=== PATIENT | male | born 1960 | race Two or more races ===

== ENCOUNTER 2017-03-02 18:52 | Inpatient (IN) | payer BC, OTHER ==
[~2017-03-02] VITALS: Ht 167.6 cm; Wt 132.5 kg
--- NOTE | ~2017-03-02 | OR ---
PATIENT'S NAME: EARNESTINE YOUNG [facility] AGE: 56 Y [address] ROOM: [place] [address] LOCATION: GICU ADMIT DATE: 03/02/2017 OR/Procedure Report DISCHARGE DATE: FAMILY PHYSICIAN: PHYSICIAN, NO ATTENDING PHYSICIAN: Chela Martell SURGEON: Sisi Cristobal MD MEDICARE SALES REPRESENTATIVE: DATE OF PROCEDURE: 03/05/2017 PROCEDURE: Right central venous catheter. INDICATIONS: The patient is undergoing posterior fossa mass excision. Need for IV access of vasopressors. DESCRIPTION OF PROCEDURE: After induction of general anesthesia, the patient was lying supine on the cart in slight Trendelenburg position. The neck was prepped with chlorhexidine 2% right neck and chest. Maximal sterile barriers were worn all times. Ultrasound was used to visualize the internal jugular vein. With a single stick, dark nonpulsatile blood was found on return. The ultrasound was then used to visualize the wire and internal jugular vein. Skin nicked, dilated, and a four lumen 8.5-Cayman Islander 16 cm catheter was placed without complication. The wire was removed. Ports withdrew blood, flushed easily, was secured in place. Sterile dressing applied on top. COMPLICATIONS: None. BLOOD LOSS: None. Chest x-ray was ordered in recovery. SISI CRISTOBAL MD JJP/modl /[id number] d: 03/05/17 2234 t: 03/11/17 1242, OPERATIVE SUMMARY
--- NOTE | ~2017-03-02 | CON ---
PATIENT'S NAME: CORWIN ROSENBERG [facility] AGE: 56 Y [address] ROOM: [place] [address] LOCATION: [facility] ADMIT DATE: 03/02/2017 Consultation DISCHARGE DATE: FAMILY PHYSICIAN: PHYSICIAN, NO ATTENDING PHYSICIAN: Chela Martell DATE OF CONSULTATION: 03/13/2017 REFERRING PHYSICIAN: TEENA RIVERA MD CARDIOLOGY CONSULT REASON FOR CARDIOLOGY CONSULTATION: Atrial fibrillation with rapid ventricular response. 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 History is obtained from chart review. The patient is Latvian-speaking only, and he is interviewed with [employer] translation equipment as well as his son is present, who helps with translation but is unsure of the patient's exact past medical history. At the time of this consult, the patient is currently status post a ventricular biopsy as well as an ICP ventricle, which was discontinued overnight. He has a previous history of chronic atrial fibrillation, for which he takes long- term anticoagulation with Xarelto. Once again, this consult is requested due to the patient being in a rapid ventricular response with atrial fibrillation. The patient is very lethargic during questioning, but from chart review, it appears he spent some time in [place] and did ingest some pork, which is the current train of thought for his possible cysticercosis infection. The patient is very lethargic and does wake up for a few questions but quickly falls back asleep. When awake, he does deny angina. He also states that he "recently saw his heart doctor." From discussion with son while he is on the phone with his mother, it appears the patient sees a [facility] manager perioperative who has an Outreach [facility] in [place]. PAST MEDICAL HISTORY: From chart review: 1. Hypertension. 2. Coronary artery disease with a history of coronary artery bypass grafting. 3. Chronic atrial fibrillation with long-term anticoagulation with Xarelto. 4. History of gastric bypass surgery in [place]. 5. Diabetes mellitus. 6. Right shoulder surgery. FAMILY HISTORY: PATIENT'S NAME: CORWIN ROSENBERG [facility] AGE: 56 Y [address] ROOM: [place] [address] LOCATION: [facility] ADMIT DATE: 03/02/2017 Consultation DISCHARGE DATE: FAMILY PHYSICIAN: PHYSICIAN, NO ATTENDING PHYSICIAN: Chela Martell No known family history of cardiac disease. SOCIAL HISTORY: The patient is originally from [place] but has lived in [place], [place] for the last 13 years. He recently went to [place] to visit for 2 months, and once again did ingest some pork, which was not fully cooked. The patient is a daily cigarette smoker. There is also noted history of alcohol use on 1 day per week, and on those days, he will have up to 7 drinks at a time. No noted history of illicit drug use. CURRENT MEDICATIONS: 1. Rocephin 2 g IV twice daily. 2. Biltricide 2400 mg p.o. 3 times daily with meals. 3. Cardizem CD 240 mg p.o. daily. 4. Chlorthalidone 12.5 mg p.o. daily. 5. Colace 100 mg p.o. twice daily. 6. Deltasone 25 mg p.o. 4 times daily. 7. Fish oil 1000 mg p.o. daily. 8. Keppra 500 mg p.o. twice daily. 9. Levothyroxine 150 mcg p.o. daily. 10. Lipitor 20 mg p.o. daily in the evening. 11. Norvasc 10 mg p.o. daily. 12. Os-Rashel 500 mg p.o. daily. 13. Multivitamin 1 tablet p.o. daily. 14. Toprol-XL 200 mg p.o. daily. 15. Vitamin C 500 mg p.o. daily. 16. Vitamin D 1000 units p.o. daily. 17. Levemir 14 units subcu daily in the evening and 12 units subcu daily in the morning. 18. NovoLog subcu on a moderate sliding scale per a.c. and at bedtime Accu- Cheks. MEDICATION ALLERGIES: No known medication allergies. REVIEW OF SYSTEMS: Unable to be fully addressed at this time due to the patient's neurologic status. PHYSICAL EXAMINATION: VITAL SIGNS: Temperature 97.3, pulse 146, respirations 20, blood pressure 112/68, and O2 saturation 97% on room air. The patient weighs 137.3 kg. SKIN: Normal for race and warm and dry. EYES: Sclerae clear. No xanthelasmas. ENT: Oral mucosa is pink and moist. PATIENT'S NAME: EARNESTINE YOUNG [facility] AGE: 56 Y [address] ROOM: [id number] [place], [place] [address] LOCATION: [facility] ADMIT DATE: 03/02/2017 Consultation DISCHARGE DATE: FAMILY PHYSICIAN: PHYSICIAN, NO ATTENDING PHYSICIAN: Chela Martell NECK: No jugular venous distention. No carotid bruits. CHEST: Respirations are even and unlabored. LUNGS: Clear to auscultation to bilateral upper lobes. They are diminished to bilateral lower lobes. HEART: Irregular rate and rhythm. Normal S1, S2. Appears to be in atrial fibrillation with rapid ventricular response on his hall monitor. ABDOMEN: Soft and nontender. MUSCULOSKELETAL: Equal muscle strength to upper and lower extremities bilaterally against resistance. EXTREMITIES: Peripheral pulses palpable. No clubbing, cyanosis, or edema. PSYCH: Very lethargic. He will awaken for 1 to 2 minutes with questioning but then quickly returns back to sleep. When he is awake, he is disoriented to time. IMPRESSION AND PLAN: Per Dr. Nancy Pierson: 1. Atrial fibrillation with rapid ventricular response. He is currently on Cardizem and Toprol-XL. His anticoagulation is on hold due to his dilated ventricles and previous biopsy and risk for bleeding. 2. Hypertension. 3. Acute encephalopathy with a possible diagnosis of cysticercosis. Currently under the care of the Hospitalist Service as well as Infectious Disease and Neurosurgery. 4. We will request his previous cardiac records from [facility] for full cardiac history. When at rest and not being stimulated, the patient's atrial fibrillation does slow down to a 70 to 80 beats per minute rate. We will want him to be restarted on anticoagulation when safe to do so. At this time, recommend continuing supportive care. We will continue to monitor, evaluate, and treat as appropriate. Thank you for this consult. Thank you for allowing [facility] to interact in the care of the patient. ISAIAH SCHNEIDER APRN FOR MD [facility] [place]/katia /[id number] d: 03/13/172116 t: 04/16/17 1334, CONSULTATION REPORT
--- NOTE | ~2017-03-02 | CON ---
[facility] 56 Y [address] ROOM: [id number] [place], [place] [address] LOCATION: [facility] ADMIT DATE: 03/02/2017 Consultation DISCHARGE DATE: FAMILY PHYSICIAN: PHYSICIAN, NO ATTENDING PHYSICIAN: Chela Martell DATE OF CONSULTATION: 03/25/2017 REFERRING PHYSICIAN: TEENA RIVERA MD REASON FOR CONSULTATION: THOMAS on CKD. HISTORY OF PRESENT ILLNESS: A 56-year-old male with past medical history of hypertension, non-insulin- dependent diabetes, questionable obstructive sleep apnea, paroxysmal atrial fibrillation on long-term anticoagulation admitted with worsening confusion and unsteadiness of gait for the last several months, apparently was evaluated in the outside hospital but could not find the exact reason. 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 The patient underwent neurosurgical procedure to remove those ventricular mass as well as PRODUCTION FINISHER shunt placement. His kidney function which was 1.3-1.5 at baseline went up to 2.8 yesterday. The patient has significant confusion and altered mental status and has a very poor oral intake. The patient got about 1 L of normal saline bolus overnight. Creatinine, however, did not change much since the 2.8 value of yesterday. Nephrology consultation has been called for further evaluation and management. During my evaluation, the patient is apparently confused. We took the history from his via an lang interpreter named Yvonne. They denied knowing about any significant history of kidney disease in the past; however, has mentioned the patient had hypertension for a long time, but diabetes is only for 6-8 months. They do not know about any significant proteinuria or hematuria in the past. The patient currently is as mentioned above confused and on one-to-one observation and no further history could be obtainable at this point. Review of systems could not be obtained as the patient is confused. PAST MEDICAL HISTORY: 1. Hypertension. 2. Diabetes. 3. Atrial fibrillation. 4. Obstructive sleep apnea. PAST SURGICAL HISTORY: The patient had a left shoulder surgery and intestinal sleeve surgery in the past. Also the patient had a ventricular surgery and PRODUCTION FINISHER shunt placement on this hospital admission. CURRENT MEDICATIONS: As per the chart. SOCIAL HISTORY: History of alcohol abuse and smoking abuse. No history of significant IV drug abuse. FAMILY HISTORY: Significant for coronary artery disease in his brother.PATIENT'S NAME: EARNESTINE YOUNG [facility] AGE: 56 Y [address] ROOM: [id number] [place], [place] [address] LOCATION: [facility] ADMIT DATE: 03/02/2017 Consultation DISCHARGE DATE: FAMILY PHYSICIAN: PHYSICIAN, NO ATTENDING PHYSICIAN: Chela Martell PHYSICAL EXAMINATION: VITAL SIGNS: Blood pressure was 110 to 120/40s, pulse 90-110, respiratory rate 16, saturation 95% to 97% on room air. GENERAL: Middle aged male, found to be confused. HEAD: Dry mucous membranes. Bilateral PERRLA, EOMI. NECK: Flat JVP. No thyromegaly or lymphadenopathy. CVS: S1 and S2 normal, regular rate and rhythm. No murmur, rub, gallop. CHEST: Bilateral air entry equal. No wheeze or rales. ABDOMEN: Soft, nontender, nondistended. Bowel sounds present. EXTREMITIES: No cyanosis, clubbing, jaundice. No dependent edema. MUSCULOSKELETAL: No limitation of range of motion. SKIN: No pallor, cyanosis, icterus. FURNITURE TECHNICIAN: The patient is confused, is not making meaningful conversation but does know name and the year, but could not specify the date or time. LABORATORY STUDIES: Sodium 138, potassium 3.7, chloride 106, bicarbonate 20, BUN 69, creatinine 2.8, calcium 8.3, glucose 118. CBC: WBC 13.8, hemoglobin 14.8, platelets 398. A1c of 8.3. UA: No recent UA since 03/13. We have ordered one and the report is pending. Urine electrolytes pending. Renal ultrasound pending. ASSESSMENT AND PLAN: 1. Acute kidney injury on chronic kidney disease. Review of his renal function shows that the baseline creatinine is 1.3-1.5, which has gone up to 2.8 more recently; however, has stabilized with IV hydration overnight. I do believe it is probably prerenal or hemodynamic ATN in origin. We will continue aggressive IV hydration, but we will prefer bicarbonate-containing solution rather than normal saline as the patient has significant anion gap metabolic acidosis in context of renal failure. We want to avoid dilutional metabolic acidosis with further normal saline administration. We will give a couple of liters of fluid bolus followed by 125 to 250 mL/h. over [address] and maintain a Cardoso and we will get strict intake and output monitoring. We will avoid nephrotoxins. Avoid hemodynamic jeopardy and keep the MAP more than 65. We will send UA and urine lytes including sodium, potassium, creatinine, and osmolality. We will get a renal ultrasound to rule out any obstructive pathology as well as to see the cortical echotexture and corticomedullary differentiation. 2. Confusion, query medication side effect versus psychiatric disorder. Psych is on the case. Primary team is managing the patient currently on Haldol. We will defer that to the primary team. 3. Ventricular lesion status post surgery. 4. Hydrocephalus, very obstructive status post PRODUCTION FINISHER shunt placement. Neurosurgery is on the case. Thank your for allowing me to participate in this patient's care. We will closely monitor the patient's progress along with you. [facility] MD /modl /[id number] d: 03/26/17 0021 t: 03/28/17 1433, CONSULTATION REPORT
--- NOTE | ~2017-03-02 | CON ---
PATIENT'S NAME: CORWIN ROSENBERG [facility] AGE: 56 Y [address] ROOM: [place] [address] [facility] ADMIT DATE: 03/02/2017 Consultation DISCHARGE DATE: FAMILY PHYSICIAN: PHYSICIAN, NO ATTENDING PHYSICIAN: Chela Martell REFERRING PHYSICIAN: TEENA RIVERA MD CONSULTATION NOTE This is a consult for Dr. Martell. HISTORY OF PRESENT ILLNESS: This 56-year-old gentleman is referred for rehabilitation evaluation. He is status post ventriculoperitoneal shunt placement on 03/13/2017 to drain hydrocephalus per Dr. Martell, done on 03/13/2017, details on record. The procedure was recorded in the OR procedures as followin. Placement of ventriculoperitoneal shunt. 2. Use of laparoscopic assistance for shunt placement and lower catheter end in the peritoneum. 3. He is diagnosed with hydrocephalus and as far as notes are concerned, he was markedly confused and getting worse. PAST MEDICAL HISTORY: Past history of significant: 1. Paroxysmal atrial fibrillation, was on anticoagulant at one time. 2. Hypertension, essential. 3. Diabetes type 2, on insulin dependent. 4. Obstructive sleep apnea. 5. Obesity. Now he keeps his eyes closed. Can move all 4s especially to pinprick stimulation. Pupils react equally. Cannot talk to me. However, he did move his bilateral upper and lower extremities fairly well with pinprick stimulation. Deep tendon reflexes are brisk in both knees and ankles, especially at the knees. Babinski is equivocal. VITAL SIGNS: His vitals are as follow: Blood pressure 154/79, temperature 97.6, pulse 95, and respiratory rate 14. He is 5 feet 6 inches, and weighs 129 kg. He is now one-on-one supervision and is sometime very restless. CURRENT MEDICATIONS: He is on the following medications: 1. Decadron. PATIENT'S NAME: CORWIN ROSENBERG [facility] AGE: 56 Y [address] ROOM: [place] [address] LOCATION: [facility] ADMIT DATE: 03/02/2017 Consultation DISCHARGE DATE: FAMILY PHYSICIAN: PHYSICIAN, NO ATTENDING PHYSICIAN: Chela Martell 2. Norvasc. 3. Levemir insulin. 4. Cardizem. 5. . 6. Morphine sulfate. 7. Docusate sodium. 8. Keppra. 9. MiraLAX. 10. Dulcolax suppository. 11. Labetalol. 12. Seroquel. 13. Toprol-XL. 14. Oxycodone. 15. Hydralazine. 16. Revillo. 17. Tylenol. 18. Vitamin D3. 19. Os-Rashel D. 20. Vitamin C. 21. [place]-3. 22. Multivitamin. 23. Levothyroxine. 24. Lipitor. 25. NaCl 0.9%. 26. Insulin aspartate, moderate scale. 27. Glucagon. 28. Glucose. 29. Dextrose. 30. Zofran. RECOMMENDATIONS AND PLAN: I will continue him on PT, OT, and speech, and I plan to take him to group when he is able to do and tolerate therapy, and he is not one-on-one, because by then he will not be able to perform therapy. Thank you for this referral. I will be following alongside with you and I will take him as soon as we can for intensive rehabilitation for about maybe 3 weeks or so, aiming to discharge on modified independence. Thank you for this referral. GURDEEP DIAZ MD [facility] 56 Y [address] ROOM: [place] [address] LOCATION: [facility] ADMIT DATE: 03/02/2017 Consultation DISCHARGE DATE: FAMILY PHYSICIAN: PHYSICIAN, NO ATTENDING PHYSICIAN: Chela Martell/katia /[id number] d: 03/21/172056 t: 03/31/17 1540, CONSULTATION REPORT
--- NOTE | ~2017-03-02 | CON ---
PATIENT'S NAME: CORWIN ROSENBERG [facility] AGE: 57 Y [address] ROOM: [place] [address] LOCATION: [facility] ADMIT DATE: 03/02/2017 Consultation DISCHARGE DATE: 04/08/2017 FAMILY PHYSICIAN: MONTY BURRELL ATTENDING PHYSICIAN: Chela Martell DATE OF CONSULTATION: 03/18/2017 REFERRING PHYSICIAN: Roderick Doan MD INDICATION: Increased apnea with history of FRAN. HISTORY OF PRESENT ILLNESS: This history is obtained from the family, nurse, and respiratory therapist as the patient is extremely drowsy. The patient has a history of FRAN, which he was diagnosed with in 2011, but his family reports that he has been nonadherent. He was initially admitted on February 28 for hydrocephalus with intraventricular lesion and status post RESISTANCE WELDER shunt. There was concern for cysticercosis; however, pathology was inconclusive. His initial ABG in the ER with a venous draw, however, his pH was 7.39, pCO2 of 60, and bicarb was 36. It has been noted over the last several days that he has been having inconsistent sleep and little more drowsy throughout the day. He was initiated on CPAP last night for the first time without any issues and was more alert after using that than he has ever been since he was admitted. Apparently, yesterday, he started only responding to painful stimuli. Around lunch time, he was placed on CPAP but was noted to have increased apnea with the machine alarming and therefore RT changed him to BiPAP 15/8 with sats be in the 98%. However, he still remained apneic, sometimes up to 40 seconds per an episode. When he is not apneic, respirations average in the 20s and an RT reports that his sats have been stable on 2 L. He has had episodes of atrial fibrillation during his stay, but is currently in a controlled ventricular rate. PAST MEDICAL HISTORY: Include: 1. FRAN. 2. Chronic atrial fibrillation on long-term anticoagulation. 3. Diabetes. 4. Hypertension. ALLERGIES: SEE MAR. MEDICATIONS: See MAR. PATIENT'S NAME: CORWIN ROSENBERG [facility] AGE: 57 Y [address] ROOM: [place] [address] LOCATION: [facility] ADMIT DATE: 03/02/2017 Consultation DISCHARGE DATE: 04/08/2017 FAMILY PHYSICIAN: PHYSICIAN, NO ATTENDING PHYSICIAN: Chela Martell SOCIAL HISTORY: There is a report of alcohol use and former tobacco use; however, it is unclear of the quantity. FAMILY HISTORY: Significant for coronary artery disease in his brother. No reported lung disease history. REVIEW OF SYSTEMS: All review of systems were negative, except for what is noted in the HPI. PHYSICAL EXAMINATION: VITAL SIGNS: Blood pressure 150/80, pulse is 90, respirations 24, and temperature 97.9. GENERAL: This is a 56-year-old, morbidly obese male who is very drowsy and hard to arouse and non-oriented, but appears in no acute distress at the time of exam. HEENT. Head: Normocephalic and atraumatic. Eyes: Clear. NECK: Supple. No adenopathy. No carotid bruits or JVD. LUNGS: Decreased breath sounds at both bases. HEART: Irregular rate and rhythm without murmur, gallop, or rub. ABDOMEN: Soft and nontender. Good bowel sounds x4. EXTREMITIES: No cyanosis, clubbing, or edema. DIAGNOSTIC DATA: ABG last night was drawn secondary to severe somnolent which revealed a pH of 7.54, pCO2 48, PO2 of 65, and bicarb of 16.3. Recheck today has shown a pH of 7.61, pCO2 41, PO2 83, bicarb 41.2. Sodium 139, potassium 3.9, CO2 is up from 36 to 37, BUN 29, creatinine 1.1. WBC is up to 24.8 from 22, hemoglobin 13.1, hematocrit 38.8, and platelets 245. ASSESSMENT: 1. Apnea central, mainly due to severe metabolic alkalosis with underlying obstructive sleep apnea. 2. Metabolic alkalosis, severe, suspect due to prolonged hypercapnia with possible contraction alkalosis. 3. Acute encephalopathy? Elevated intracranial pressure. 4. History of obstructive sleep apnea, on BiPAP currently. 5. Status post ventriculoperitoneal shunt? elevated intracranial pressure. PLAN: We will plan to start Diamox to treat his alkalosis currently and recheck an ABG in the morning. We will continue with BiPAP for now, but had a backup rate of 12. He is going down for a stat MRI of the brain, which we agree PATIENT'S NAME: EARNESTINE YOUNG [facility] AGE: 57 Y [address] ROOM: [place] [address] LOCATION: [facility] ADMIT DATE: 03/02/2017 Consultation DISCHARGE DATE: 04/08/2017 FAMILY PHYSICIAN: PHYSICIAN, NO ATTENDING PHYSICIAN: Chela Martell. We also recommend avoiding sedatives if at all possible at this point. Thank you for the consult and opportunity to participate in the patient's care. PREMA NOEL APRN FOR MD WANDA RAMÍREZ/modl /[id number] d: 04/23/17 1101 t: 05/05/173, CONSULTATION REPORT
--- NOTE | ~2017-03-02 | CON ---
PATIENT'S NAME: EARNESTINE YOUNG [facility] AGE: 56 Y [address] ROOM: [id number] [place] [address] LOCATION: [facility] ADMIT DATE: 03/02/2017 Consultation DISCHARGE DATE: FAMILY PHYSICIAN: PHYSICIAN, NO ATTENDING PHYSICIAN: Chela Martell DATE OF CONSULTATION: 03/25/2017 REFERRING PHYSICIAN: TEENA RIVERA MD INITIAL PSYCHIATRIC EVALUATION/CONSULTATION DATA: A 56-year-old male currently admitted at [facility]. CONSULTATION REQUESTED BY: Dr. Zamarripa. DIAGNOSIS: At time of this evaluation, delirium, acute; hyperactive. RECOMMENDATIONS: Being the patient very agitated and in and out of restraints and quite hyperactive, and at times agitated, I would like to discontinue Haldol, discontinue the Zyprexa as currently prescribed, and titrate the Zyprexa to 10 mg p.o. x1 now of the Zydis type and now 15 mg every h.s. and 5 mg every morning. As long as the patient is delirious, he is obviously not able to make treatment decisions. HISTORY: This gentlemen was doing okay until recently when he started getting nausea and later went to the hospital, was diagnosed with hydrocephalus. He was already operated upon to put a shunt, but the patient actually has been very confused, pulling IVs, quite agitated. He has been not sleeping well. He comes in and out of level of alertness, unable to keep a conversation straight, and somewhat disoriented. He is a poor historian, but a consultation was requested, so I came to [facility], reviewed electronic records, the paper records, talked to the nurse for collateral information, talked to Dr. Jones also. Since the patient was originally going to be Dr. Vallejo for a consultation, but Dr. Vallejo went yesterday to the hospital, and the patient was not in his bed, has gone to an MRI. Since he knew that the patient speaks only Occitan, he asked me to see the patient then today. The patient again is a very poor historian. He is quite disoriented actually. He is continuously trying to get out of bed and agitated. Fortunately, present was the patient's and the patient's [id number], who provide more information on him. The patient again does not have any PATIENT'S NAME: EARNESTINE YOUNG [facility] AGE: 56 Y [address] ROOM: [id number] [place], [place] [address] LOCATION: [facility] ADMIT DATE: 03/02/2017 Consultation DISCHARGE DATE: FAMILY PHYSICIAN: PHYSICIAN, NO ATTENDING PHYSICIAN: Cheal Martell psychiatric history, just is medical one, and has never been known to be depressed, anxious, psychotic, manic, hypomanic. No issues with obsession and compulsion, eating disorder, post traumatization, or gambling. While delirious, the patient has been on Haldol p.r.n. and Zyprexa p.r.n. SOCIAL HISTORY: Noncontributory, not a known smoker or heavy drinker, or a drug user. PAST PSYCHIATRIC HISTORY: The patient had been on Wellbutrin for a while, but the patient's denied that he was severely depressed, just once in a while get a little bit sad but nothing contributory a diagnosis. Nevertheless, the Wellbutrin was stopped when he became delirious, which seems appropriate. He has never been hospitalized in a psychiatric facility. He has never tried to kill himself. MEDICAL HISTORY: Per H and P. PERSONAL HISTORY: He was born in [place]. He has lived in [place] for the last 13 years. . No legal problems. HISTORY OF ABUSE: Noncontributory. He has never been abused physically, sexually, or psychologically. FAMILY HISTORY: Noncontributory. MENTAL STATUS EXAMINATION: This is a gentleman, poor historian, somewhat agitated, continually hyperactive, moving, unable to track information, unable to keep attention. His speech is productive, not a less but not always understandable. Mood seems to be very labile. Affect is labile. Thought content is relevant. The patient is not endorsing any suicidal or homicidal ideation, so far not apparently internally stimulated. No auditory hallucination. No delusional thoughts. Thought process seems to be coherent, but not congruent. Difficult to understand. Insight and judgment are impaired. Memory is impaired. He is coming in and out of level of alertness, and he is oriented only to person, partially oriented to time. Disoriented to place and circumstance. STRENGTHS: Support, access to service. BARRIERS: PATIENT'S NAME: EARNESTINE YOUNG [facility] AGE: 56 Y [address] ROOM: [id number] [place] [id number] LOCATION: [facility] ADMIT DATE: 03/02/2017 Consultation DISCHARGE DATE: FAMILY PHYSICIAN: PHYSICIAN, NO ATTENDING PHYSICIAN: Chela Martell Physical health. ELISA DAVIS MD HG/modl /[id number] d: 03/25/172131 t: 03/26/17 0931, CONSULTATION REPORT
--- NOTE | ~2017-03-02 | OR ---
PATIENT'S NAME: CORWIN NOLASCO [facility] AGE: 56 Y [address] ROOM: [place] [address] LOCATION: [facility] ADMIT DATE: 03/02/2017 OR/Procedure Report DISCHARGE DATE: FAMILY PHYSICIAN: PHYSICIAN, NO ATTENDING PHYSICIAN: Chela Martell SURGEON: Foster Freedman DO AGRICULTURAL EQUIPMENT SALESPERSON: DATE OF PROCEDURE: 03/25/2017 PREOPERATIVE DIAGNOSES: 1. Acute kidney injury with need for rehydration, poor peripheral access. 2. Confusion, secondary to hydrocephalus. POSTOPERATIVE DIAGNOSES: 1. Acute kidney injury with need for rehydration, poor peripheral access. 2. Confusion, secondary to hydrocephalus. PROCEDURE: Insertion of a left subclavian vein triple-lumen catheter. BRIEF HISTORY: Mr. Nolasco is a 56-year-old male, who secondary to his confusion has pulled out his PICC line. He has a very poor peripheral access. We have been asked to place a central line. DESCRIPTION OF PROCEDURE: Informed consent has been obtained via an pressurised container filler. The patient has no IV access at this time, and is markedly combative, agitated, and confused. IM Zyprexa 10 mg was given for sedation, 1% lidocaine was used to infiltrate the left infraclavicular space, and the subclavian vein was accessed. Guidewire fed without resistance. Stab incision made with the base of the needle, and the needle was withdrawn. Soft tissue dilator was placed over the guidewire and withdrawn and then the triple- lumen catheter was placed over the guidewire and the guidewire was withdrawn. Each lumen aspirated easily for dark venous blood and then was flushed with sterile saline. A chest x-ray is pending for placement. It was secured in position with a 2-0 silk, and a sterile dressing was applied. FOSTER FREEDMAN DO MCB/modl /[id number] d: 03/26/17 0048 t: 05/10/17 0650, OPERATIVE SUMMARY
--- NOTE | ~2017-03-02 | CON ---
[facility] AGE[facility] 56 Y [address] ROOM: [place] [address] LOCATION: GICU ADMIT DATE: 03/02/2017 Consultation DISCHARGE DATE: FAMILY PHYSICIAN: , MONTY ATTENDING PHYSICIAN: Chela Martell DATE OF CONSULTATION: 03/12/2017 REFERRING PHYSICIAN: TEENA RIVERA MD HISTORY: This patient is a 56-year-old male, admitted secondary to 1-month history of dizziness. Head CT revealed hydrocephalus. The patient has since undergone drainage along with suboccipital craniectomy with biopsy of fourth ventricular mass, duraplasty, and partial C1 laminectomy by Dr. Martell. During his hospitalization, the patient pulled out his inflated Cardoso catheter. This resulted in the onset of gross hematuria. Earlier today, I ordered the Cardoso replace which should help tamponade the bleeding. Currently, his urine is still pinkish color without clots. Recommend leaving the Cardoso catheter in place for at least 4-5 days and his hematuria should resolve over the next day or two. PAST MEDICAL HISTORY: Significant for a gastric bypass in 2012, hypertension, diabetes, coronary artery disease, and history of atrial fibrillation. PAST OPERATIONS: Include right shoulder repair and CABG. MEDICATIONS: See detailed history and physical. ALLERGIES: NONE. SOCIAL HISTORY: The patient is originally from [place]. He smokes and occasionally consumes alcohol. REVIEW OF SYSTEMS: Negative. PHYSICAL EXAMINATION: GENERAL: A 56-year-old male, resting, somewhat fairly drowsy. HEENT: Head: Branches from prior cranial surgery. Eyes: Closed. NEURO: Cannot completely assess as the patient is resting. PATIENT'S NAME: CORWIN ROSENBERG [facility] AGE: 56 Y [address] ROOM: [place] [address] LOCATION: GICU ADMIT DATE: 03/02/2017 Consultation DISCHARGE DATE: FAMILY PHYSICIAN: PHYSICIAN, MONTY ATTENDING PHYSICIAN: Chela Martell LUNGS: Clear bilaterally. CARDIAC: Regular rhythm and rate. ABDOMEN: Soft with normoactive bowel sounds throughout. SKIN: Within normal limits. : Cardoso catheter in place, again draining pink urine. ASSESSMENT: Urethral trauma secondary to traumatic Cardoso catheter removal. PLAN: Cardoso catheter replaced, we will leave in for the next at least 4-5 days or longer if necessary. MD ADELA SUBRAMANIAN/katia /[id number] d: 03/13/17 0128 t: 03/15/17 1237, CONSULTATION REPORT
--- NOTE | ~2017-03-02 | ER ---
[facility] AGE: 56 Y [address] ROOM: [id number] [place] [address] LOCATION: GICU ADMIT DATE: 03/02/2017 ER/Outpatient Report DISCHARGE DATE: FAMILY PHYSICIAN: PHYSICIAN, UNKNOWN ATTENDING PHYSICIAN: Chela Martell Time of Arrival: 1857 hours. Time of Exam: 1901 hours. CHIEF COMPLAINT: Dizziness and headache. HISTORY OF PRESENT ILLNESS: Sarah was used as an automotive parts interpreter, the patient speaks Urdu. His adult son is here with him. The son does speak Senegalese as well as Urdu. The patient has not felt well for the last 30 days, he has had dizziness, decreased balance, confusion, and generalized headache. He seemed to be getting worse as time has gone on. Son said he did fall yesterday due to the weakness, did not get injured in any way, did not hit his head. They were seen in [place], they report [place] just kept putting him off, did not really want to do anything for him. They did see an Ears, Nose, Throat specialist in [place] for the dizziness. MRI was ordered, he is scheduled to have an MRI here at [facility] tomorrow at 3 o'clock, but the son was concerned because of the patient's symptoms do seem to be getting worse instead of better. He has had some vision changes. He vomited x1 today. He has not had any chest pain, does not feel short of breath. ALLERGIES: NO KNOWN ALLERGIES. CURRENT MEDICATIONS: On his chart and were reviewed by me. PAST MEDICAL HISTORY: Wur-ueihjwe-gfhpnured diabetes, hypertension, hypokalemia, and atrial fibrillation. PAST SURGERIES: Shoulder surgery, questionable if he has had some cardiac surgery before, and he has had gastric bypass surgery before for obesity. SOCIAL HISTORY: He lives with his in [place]. Denies use of alcohol or tobacco. Does drink alcohol. PATIENT'S NAME: CORWIN ROSENBERG [facility] AGE: 56 Y [address] RO[place]: [id number] [address] LOCATION: GICU ADMIT DATE: 03/02/2017 ER/Outpatient Report DISCHARGE DATE: FAMILY PHYSICIAN: PHYSICIAN, UNKNOWN ATTENDING PHYSICIAN: Chela Martell REVIEW OF SYSTEMS: All negative other than those mentioned in the HPI. PHYSICAL EXAMINATION: VITAL SIGNS: He weighed 142.1 kg. Blood pressure was 204/98, pulse of 98, respirations 16, temperature of 98, and O2 saturation is 97% on room air. GENERAL: He is awake and alert. He answers questions appropriately through the Sarah and through his son. HEENT: Pupils are equal reactive to light. Extraocular movement is intact. He does have positive 2-beat nystagmus. Oropharynx is clear. NECK: Supple. No lymphadenopathy. LUNGS: Lung sounds are clear throughout. HEART: Regularly irregular rate. ABDOMEN: Round, soft, and nondistended. Bowel sounds are present. No peripheral edema noted. ER COURSE: EKG was completed, it shows atrial fibrillation with ventricular rate of 89. CBC is within normal limits. Chem panel shows sodium 139, potassium 3.7, chloride 101, BUN 7, and creatinine 0.6. CPK is 144, CK-MB is 1, and troponin was normal. Free T4 is 1.1, TSH is 0.421. Ammonia is 21. Lactate is 1.8. Venous ABGs showed pH is 7.36, CO2 is 60, and bicarb is 36.3. Procalcitonin was normal. CT of the head was completed. Radiology reports there are no signs of hemorrhage, but he does have ventriculomegaly with a communicable hydrocephalus. Lateral ventricles are prominent. Dr. Martell was contacted, he wants the patient to be admitted. The patient and his family were informed of the results and the plan of care. They agree with the plan of care. IMPRESSION: 1. Hydrocephaly. 2. Confusion. PLAN: The patient will be placed inpatient with care of Dr. Martell. CONRAD ENCISO APRN FOR DO NICOLE MEYER/katia /[id number] d: 03/03/17 0115 t: 04/14/17 0853, OUTPATIENT REPORT
--- NOTE | ~2017-03-02 | CON ---
PATIENT'S NAME: [facility] AGE: 56 Y [address] ROOM: [place] [address] LOCATION: GICU ADMIT DATE: 03/02/2017 Consultation DISCHARGE DATE: FAMILY PHYSICIAN: PHYSICIAN, UNKNOWN ATTENDING PHYSICIAN: Chela Martell DATE OF CONSULTATION: 03/02/2017 REFERRING PHYSICIAN: TEENA RIVERA MD REQUESTING PHYSICIAN: Chela Martell MD. REASON FOR CONSULTATION: Medical management. HISTORY OF PRESENT ILLNESS: The patient is a 56-year-old male with past medical history as listed below. The patient has been experiencing worsening confusion and unsteadiness on his feet in the course of last several months. Apparently, he has been evaluated at an outside hospital, but has not had an an explanation for his symptoms. Today, the patient was brought to the emergency room at [facility]. A biochemical workup was unremarkable, but a CAT scan does reveal ventriculomegaly concerning for hydrocephalus. The patient has been seen and admitted by Dr. Martell for further workup of hydrocephalus. A hospitalist consultation has been requested for management of his chronic medical problems. Per discussion with the family who are helping translate for the patient who does not speak any Kiswahili, his recent symptoms have been preventing him from actually working. He does periodically travel to [place] approximately once a year though trips are uneventful. Recently, he has been confusing his relatives as well as dates. Also, he has been experiencing a profound problem with insomnia. REVIEW OF SYSTEMS: All 10 systems have been reviewed and are negative aside for pertinent positives mentioned above. PAST MEDICAL HISTORY: Significant for, 1. Paroxysmal atrial fibrillation, on anticoagulation. 2. Essential hypertension. 3. Pvj-yfcauky-lifqouhsb diabetes. 4. Apparently, the patient has been diagnosed with questionable obstructive sleep apnea in the past, but he does not use CPAP. PAT[facility]'S [facility]: [facility] AGE: 56 Y [address] ROOM: [place] [address] LOCATION: GICU ADMIT DATE: 03/02/2017 Consultation DISCHARGE DATE: FAMILY PHYSICIAN: PHYSICIAN, UNKNOWN ATTENDING PHYSICIAN: Chela Martell SURGICAL HISTORY: Significant for a recent left shoulder surgery and intestinal sleeve. CURRENT MEDICATIONS: Include, 1. Xarelto. 2. Metoprolol. 3. Metformin. 4. Hydrochlorothiazide. SOCIAL HISTORY: The patient does smoke cigarettes though it is difficult to quantify how much. They do admit occasional alcohol use, but no evidence of abuse. FAMILY HISTORY: Significant for coronary artery disease in his brother. PHYSICAL EXAMINATION: VITAL SIGNS: At this point, temperature 98.9, pulse 97, respirations 16, blood pressure 167/84, and saturating 98% on room air. GENERAL: Appears as a morbidly obese, male, quite sedated, but arousable. NEUROLOGICAL: Grossly nonfocal, but the patient is not really able to follow and it appears to me that he does have some impairment and tracking to the left. He is alert and oriented x2 only, not knowing where he is located at. EYES: Pupils are equal and reactive to lightheadedness. LYMPHATIC: No cervical lymphadenopathy. ENDOCRINE: No thyromegaly. LUNGS: Clear to auscultation. HEART: Rate is irregular, but no appreciable murmurs, gallops, or rubs. GASTROINTESTINAL: Abdomen is obese, soft, nontender, and nondistended. : No costovertebral angle tenderness. VASCULAR: 2+ pedal pulses. MUSCULOSKELETAL: Unremarkable. PSYCHIATRIC: Reveals quite a lethargic, but arousable gentleman with no suicidal ideation. SKIN: Warm and dry. LABORATORY DATA: Studies performed in the ER are significant for venous blood gas showing pH 7.39, pCO2 of 60, and bicarb of 36. Unremarkable thyroid function test, CBC, and electrolytes as well as the urine. IMPRESSION AND RECOMMENDATIONS: PATIENT'S NAME: JASON YOUNGO [facility] AGE: 56 Y [address] 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 Individual problems to be addressed as follows: 1. Rnt-tucrdqu-dvptxehke diabetes. The patient has been started on IV Decadron. I suspect that he will have a profound increase in his blood glucose. We will put him on a sliding scale and continue his metformin. 2. Paroxysmal atrial fibrillation. His Xarelto is obviously on hold, and we will continue him on his metoprolol and control his rate. 3. Chronic hypercapnic respiratory failure as evidenced by his venous blood gas. It is unclear if this is related to his recent symptomatology or if this is a chronic issue. We will monitor the patient on end-tidal CO2, and he may need a pulmonary evaluation once his acute problems are addressed. 4. Essential hypertension. We will continue him on his current antihypertensive regimen. 5. Morbid obesity, noted. 6. DVT prophylaxis will be instituted once Xarelto wears off. Thank you for allowing us to participate in the care of this gentleman. We will follow the patient with you and help guide his medical course. Time dedicated to this patient's encounter is 35 minutes. MD LUNA SALDAÑA/katia /[id number] d: 03/03/177 t: 03/18/17 0447, CONSULTATION REPORT
--- NOTE | ~2017-03-02 | OR ---
PATIENT'S NAME: CORWIN ROSENBERG [facility] AGE: 56 Y [address] ROOM: [address] [address] LOCATION: [facility] ADMIT DATE: 03/02/2017 OR/Procedure Report DISCHARGE DATE: FAMILY PHYSICIAN: , MONTY ATTENDING PHYSICIAN: Chela Martell SURGEON: Chela Martell MD LOT ASSOCIATE: DATE OF PROCEDURE: 03/13/2017 PREOPERATIVE DIAGNOSIS: Intraventricular lesions with hydrocephalus. POSTOPERATIVE DIAGNOSIS: Intraventricular lesions with hydrocephalus. PROCEDURES PERFORMED: 1. Placement of ventriculoperitoneal shunt. 2. Use of laparoscopic assistance for placement of peritoneal catheter of ventriculoperitoneal shunt. CO-SURGEON: Dave Gorman MD, General Surgeon. ANESTHESIA: General. HISTORY: This patient is a 56-year-old male admitted last week with hydrocephalus. The nature or cause of the hydrocephalus is being investigated. The patient first underwent posterior fossa craniotomy and biopsy of a fourth ventricular lesion which was blocking outflow of spinal fluid. The biopsy result is still pending. The patient's hydrocephalus was unchanged after biopsy of this fourth ventricular obstructive mass. A ventriculostomy catheter was, therefore, placed for a period of time. The patient's pressure never stayed above 20, and only one time did he have his ventriculostomy open. After 4 days of ventriculostomy, the ventricular catheter was removed. The patient became drowsy again, and CT scan showed his ventricles became a little bit more enlarged and contained some air. I felt it was safest to place a ventriculoperitoneal shunt for this gentleman in the meantime while trying to decide what was causing his hydrocephalus. 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 The antibody titer results are still pending. I spent a considerable amount of time explaining the procedure of ventriculoperitoneal shunt placement to the patient's family. I also explained to them the rationale for performing and the risks and benefits. The family gave consent as the patient was too drowsy to comprehend what was being said to him. He was, therefore, brought to the operating room for surgery. PATIENT'S NAME: CORWIN ROSENBERG [facility] AGE: 56 Y [address] [address] LOCATION: [facility] ADMIT DATE: 03/02/2017 OR/Procedure Report DISCHARGE DATE: FAMILY PHYSICIAN: MONTY BURRELL ATTENDING PHYSICIAN: Chela Martell DESCRIPTION OF PROCEDURE: The assistance of a general surgeon was needed as the patient has a large body habitus, and secondly, has had previous gastric bypass which could complicate placement of the peritoneal catheter. The placement of the peritoneal catheter was performed by Dr. Gorman, and this part of the procedure is covered in his separate operative note. I performed the cranial part of the procedure. In the operating room, the patient was placed in a supine position. Anesthesia was induced. He was intubated. A roll was placed under his shoulders. His head was secured in a gel donut. The hair on the back of his head was clipped. The sites for the cranial and peritoneal incisions were made. The area where the shunt was being placed was prepped and draped appropriately. Local anesthesia was infiltrated along the incision line. A scalp flap was peeled back. The Passer was used to create a tunnel from the cranial incision to the upper abdomen. Dr. Gorman then exposed the catheter on the abdomen, and using laparoscopic methods, placed it in an appropriate position. Returning to the cranial end, the galea was incised in a cruciate fashion and the sections peeled back. A drill was used to create a bur hole. The dura was coagulated. The ventricular catheter was trimmed to a length of 11 cm. The catheter was inserted through the bur hole into the ventricles. Access was obtained at first try with prompt return of spinal fluid. Opening pressure was 19 cm of water. The fluid was xanthochromic, consistent with the patient's prior posterior fossa surgery. The programmable valve was then programmed to a level of 13. The valve was connected to the ventricular catheter, and the two were tied together. The distal end of the valve was connected to the proximal end of the peritoneal catheter, and the two were tied together. Spinal fluid could be seen coming out from the distal end of the peritoneal catheter before Dr. Gorman placed it in the peritoneum. We were satisfied that the shunt was functioning. The incisions were then closed with appropriate suture materials. Sterile dressings were applied. The patient took a few minutes to wake up, but it was possible to extubate him and take him back to the recovery room to complete his recovery. I was present at and performed every aspect of this procedure, assisted by Dr. Gorman as mentioned earlier. There were no apparent intraoperative complications. Swabs, needles, and instruments were all accounted for at the end of the case. Estimated blood loss was less than 100 mL, and there was no reason for blood transfusion. We still await the results of the biopsy taken earlier; however, the ANIMAL HUSBANDRY PROFESSOR shunt should protect the patient from any complications of the hydrocephalus while the workup is pending. [facility] 56 Y [address] ROOM: [place] [address] LOCATION: [facility] ADMIT DATE: 03/02/2017 OR/Procedure Report DISCHARGE DATE: FAMILY PHYSICIAN: PHYSICIAN, NO ATTENDING PHYSICIAN: Chela Martell MD SHY CASTRO/inderjitl /[id number] d: 03/15/178 t: 03/22/172019, OPERATIVE SUMMARY
--- NOTE | ~2017-03-02 | CON ---
[facility] AGE: 56 Y [address] ROOM: [address] [place], [place] [address] LOCATION: [facility] ADMIT DATE: 03/02/2017 Consultation DISCHARGE DATE: FAMILY PHYSICIAN: PHYSICIAN, NO ATTENDING PHYSICIAN: Chela Martell DATE OF CONSULTATION: 03/12/2017 REFERRING PHYSICIAN: TEENA RIVERA MD INFECTIOUS DISEASE CONSULTATION REFERRING PHYSICIAN: Dr. Martell. REASON FOR CONSULTATION: Multiple enhancing lesions in the ventricular system. HISTORY OF PRESENT ILLNESS: This is a 56-year-old gentleman with history of atrial fibrillation, high blood pressure, diabetes, history of bypass surgery for coronary artery disease, presented with dizziness and fall. Admitted on March 02, 2017, seen by Dr. Martell, and CT scan done showed hydrocephalus. Therefore, he ended up brain biopsy of the ventricular lesion on March 05, 2017, and also had a ventriculostomy placement, which was done on March 07, 2017. The patient does not have any fever since admission except mild temperature up to 100 on March 11, 2017, and has some mild leukocytosis between 12 to 17, which has been stable. 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 Therefore, serology was sent, and then IgG came back negative on March 04, 2017. Also noted that on March 02, 2017, blood culture done, no growth; and on March 07, 2017, CSF culture from the ventriculostomy was sent and nothing grow after 2 days. 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 Per Pharmacy, they do not have albendazole here so they ended up to using praziquantel, currently dosing is 100 mg/kg per day p.o. in 3 divided doses on day #1, then 50 mg/kg per day in 3 divided doses for 15 more days. The patient is also getting some prednisone too at 100 mg per day for 5 days with a taper, that is the plan. The patient is still very confused and can not communicate at this point. ID consultation requested for further evaluation and management. PAST MEDICAL HISTORY: Right shoulder surgery, gastric bypass surgery, also coronary artery bypass surgery, atrial fibrillation, high blood pressure, diabetes. ALLERGIES: PATIENT'S NAME: EARNESTINE YOUNG [facility] AGE: 56 Y [address] ROOM: [address] [place], [place] [address] LOCATION: [facility] ADMIT DATE: 03/02/2017 Consultation DISCHARGE DATE: FAMILY PHYSICIAN: PHYSICIAN, NO ATTENDING PHYSICIAN: Chela Martell NO KNOWN DRUG ALLERGIES. FAMILY HISTORY: Unremarkable. SOCIAL HISTORY: The patient is originally from [place] but living in [place] for the last 13 years. He was recently in [place] 2 months ago, and the patient is a current smoker. Per family, the patient might have consumed a not fully cooked pork while in the [place]. CURRENT MEDICATIONS: On IV vancomycin since March 10, 2017; and also IV ceftriaxone since March 10, 2017; with praziquantel started on March 11, 2017, started with 100 mg/kg per day p.o. in 3 divided doses on one day #1, then 50 mg/kg per day in 3 divided doses for 15 more days. REVIEW OF SYSTEMS: Cannot obtained because the patient is confused. PHYSICAL EXAMINATION: VITAL SIGNS: 137/56, pulse rate 84, respirations 22, temperature 96.8, T-max is 98.4 over last 24 hours, had a T-max 100 on March 10, 2017. GENERAL: Confused, not interactive. HEENT: Ventriculostomy located in the head. NECK: Supple. LUNGS: Clear to auscultation bilaterally. HEART: Regular rhythm and rate. ABDOMEN: Bowel sounds positive. No tenderness or rebound tenderness. EXTREMITIES: Mild edema noted. SKIN: No rash noted. LABORATORY DATA: White blood cell 12.5, hemoglobin 14.6, platelet 259. BUN 17, creatinine 0.6. LFT unremarkable. Procalcitonin done on March 11, 2017, was less than 0.05, and on March 04, 2017, serum cysticercosis antibody IgG is 0.06, which is negative. Blood culture done on March 02, 2017, no growth, and CSF culture done on March 07, 2017, no growth. IMAGING DATA: Brain MRI done on 03 of March showed that multiple enhancing lesions in the ventricular system with the largest lesion at the area of the foramen of Luschka at the right cerebella hemisphere extending into the adjacent fourth ventricle. Additional lesions are identified at the third ventricle and left lateral ventricle. Major differential consideration is intraventricular PATIENT'S NAME: EARNESTINE YOUNG [facility] AGE: 56 Y [address] ROOM: [id number] [place], [place] [address] LOCATION: [facility] ADMIT DATE: 03/02/2017 Consultation DISCHARGE DATE: FAMILY PHYSICIAN: PHYSICIAN, NO ATTENDING PHYSICIAN: Chela Martell ependymoma and metastatic lesions. Intraventricular infection such as from cysticercosis is also a differential consideration. On March 05, 2017, chest x-ray showed no pneumothorax, mild pulmonary venous hypertension. On March 12, 2017, CT head, right frontal ventriculostomy has its tip in the right frontal horn. There is a tiny amount of blood in the fourth ventricle and in the occipital horns of the lateral ventricle on both sides. Postoperative changes at the posterior foci with suboccipital craniectomy. Finding are noted but without apparent complication in that area. PATHOLOGY: On March 05, 2017, CSF fluid, no malignant cell present. On March 05, 2017, brain tissue biopsy, atypical architecture. Case sent to the [facility] for consultation. Brain tissue fourth ventricular lesion biopsy, atypical cell present. Case sent to the [facility] for consultation. ASSESSMENT AND PLAN: This is a 56-year-old gentleman, originally from [place] but has been in [place] for 13 years, recent visit to [place] 2 months ago, and per family, the patient might have consumed some not fully cooked pork meat over there, presents with dizziness and found to have multiple enhancing lesions in the ventricular system with hydrocephalus and status post biopsy, and due to the elevated pressure now had a ventriculostomy in place. CSF culture done on March 10, 2017, no growth today, but cell count was not done, and also biopsy still pending and awaiting from [facility] and cysticercosis serology done from the serum IgG is negative and had some low-grade temp 2 days ago and mild leukocytosis. Procalcitonin is negative. So DDx basically could be tumorous condition versus neurocysticercosis and has been on praziquantel already because albendazole is not available, and also just started IV vancomycin and ceftriaxone 2 days ago because the patient had low-grade temp. RECOMMENDATIONS: We will check CSF cell count and differential and protein and glucose today. We will stop IV vancomycin because CSF culture was negative. I will continue IV ceftriaxone for now, but if the CSF cell count is low and it does not suggests infection, then okay to stop it. Otherwise, we will continue IV ceftriaxone for may be 7 to 10 days. Continue praziquantel pending brain biopsy and ID will see in 1 week. MD LYNN NOEL/katia PATIENT'S NAME: CORWIN ROSENBERG [facility] AGE: 56 Y [address] ROOM: [place] [address] LOCATION: [facility] ADMIT DATE: 03/02/2017 Consultation DISCHARGE DATE: FAMILY PHYSICIAN: PHYSICIAN, NO ATTENDING PHYSICIAN: Chela Martell /[id number] d: 03/13/17 0233 t: 04/02/17 1240, CONSULTATION REPORT
--- NOTE | ~2017-03-02 | OR ---
PATIENT'S NAME: CORWIN ROSENBERG [facility] AGE: 56 Y [address] ROOM: [address] [address] LOCATION: [facility] ADMIT DATE: 03/02/2017 OR/Procedure Report DISCHARGE DATE: FAMILY PHYSICIAN: PHYSICIAN, NO ATTENDING PHYSICIAN: Chela Martell SURGEON: Chela Martell MD MAINTENANCE PIPEFITTER: Aracelis Quan. DATE OF PROCEDURE: 03/05/2017 PREOPERATIVE DIAGNOSIS: Hydrocephalus and intraventricular mass. POSTOPERATIVE DIAGNOSIS: Hydrocephalus and intraventricular mass. PROCEDURE PERFORMED: 1. Suboccipital craniectomy for biopsy of a fourth ventricular mass. 2. Duraplasty. 3. Partial C1 laminectomy. ANESTHESIA: General. ANESTHESIA PROVIDER: Ramon Cristobal MD INDICATIONS: The patient is a 56-year-old male who presented with headache and unsteadiness and vomiting. Imaging studies showed hydrocephalus with intraventricular lesions. One of the lesions was in the fourth ventricle and was causing obstruction of CSF flow. Neurologically, the patient was unsteady on his feet but he was able to follow commands and could communicate in Pashto. The situation was discussed with the patient and his family. It was necessary to establish a diagnosis as to what was causing the hydrocephalus and perhaps treat the hydrocephalus at the same time. It seems most efficient to decompress the fourth ventricle where he was obstructed and also use this opportunity to obtain tissue for biopsy. I went over the procedure the benefits and risks with the patient's family and with the patient. With their consent, he was brought to the operating room for the above procedures. PROCEDURE IN DETAIL: In the operating room, the patient was placed in a supine position. Anesthesia was induced, Cardoso catheter was placed and appropriate support lines were inserted. The patient's head was then secured in a 3-pin [place] head neck surgeon and he was turned to a prone position on a Brian table taking care to protect all pressure points. His head was flexed slightly to expose the suboccipital area. The hair on the back of his head was clipped. The incision line was marked out in the midline in the upper cervical and suboccipital area. The whole area was prepped and draped in a PATIENT'S NAME: CORWIN ROSENBERG [facility] AGE: 56 Y [address] ROOM: [facility] [place], [place] [address] LOCATION: [facility] ADMIT DATE: 03/02/2017 OR/Procedure Report DISCHARGE DATE: FAMILY PHYSICIAN: , MONTY ATTENDING PHYSICIAN: Chela Martell sterile fashion. Local anesthesia was infiltrated along the incision line. The #10 blade was used to open the incision and it was deepened to the fascial layer. The Bovie was then used to deepen the incision further while the self- retaining retractors were adjusted. We got to the back of the skull. The incision was progressively deepened maintaining the avascular midline plane until we got to the tip of the C2 spinous process. The space between C2 spinous process and the back of the skull was then explored until we got to the foramen magnum and the C1 itself. The retractors were adjusted and hemostasis was achieved. The suboccipital craniectomy was then performed. The top of C1 was also trimmed down to facilitate access to the cervical medullary junction. The microscope was brought in and under microscopic vision the dura was opened. The dural leaves were tied back. The space between the tonsils was explored. The fourth ventricle was seen. A little more rostrally, the abnormal areas became visible. It was a pearly white area containing the mass that was obstructing the fourth ventricle. Working very carefully, some of the mass was removed. It was soft and grayish in color. It was not vascular. We felt that enough tissue was obtained for diagnosis. Prior to taking the tissue, spinal fluid had also been sent off for cytology and for antibody testing for cysticercosis. The decompression progressed and spinal fluid could be seen coming out clearly into the fourth ventricle without any apparent obstruction. At this point, I felt that the objective of the surgery had been achieved, mainly to obtain tissue for diagnosis as well as to establish free CSF flow, which was visible under the microscope. The dura was then closed. It was not possible to obtain watertight closure and a piece of dura repair was used to perform a duraplasty less than 5 cm. More DuraGen was placed on top of the duraplasty and DuraSeal was used to reinforce the closure. Next, the incision was closed in layers. The fascia was closed as tightly as possible to discourage any spinal fluid leak. Nylon was used to close the skin. A sterile dressing was applied. The patient was then rolled back to a supine position. His head was taken out of the Pepe head neck surgeon. His anesthesia was reversed. He was extubated and taken to the recovery room to complete his recovery. I was present at and performed every aspect of this procedure, assisted at some stages by operating room nurses. There were no apparent intraoperative complications. Swabs, needles, and instruments were all accounted for at the end of the case. Estimated blood loss was less than 300 mL and there was no reason for blood transfusion. I expect the patient to feel better after the procedure, I hope his hydrocephalus will improve now that CSF was flowing clearly and hopefully he [facility]: [facility] 56 Y [address] ROOM: [place] [address] LOCATION: [facility] ADMIT DATE: 03/02/2017 OR/Procedure Report DISCHARGE DATE: FAMILY PHYSICIAN: PHYSICIAN, NO ATTENDING PHYSICIAN: Chela Martell should get a definitive diagnosis to help with further treatment. MD SHY CASTRO/katia /[id number] d: 03/07/17 1015 t: 03/10/17 0731, OPERATIVE SUMMARY
--- NOTE | ~2017-03-02 | CON ---
PATIENT'S NAME: CORWIN ROSENBERG [facility] AGE: 56 Y [address] ROOM: [place] [address] [facility] ADMIT DATE: 03/02/2017 Consultation DISCHARGE DATE: FAMILY PHYSICIAN: PHYSICIAN, NO ATTENDING PHYSICIAN: Chela Martell DATE OF CONSULTATION: 03/31/2017 REFERRING PHYSICIAN: TEENA RIVERA MD REFERRING PROVIDER: Hospitalist. REASON FOR CONSULTATION: Positive heme stools and anemia. HISTORY OF PRESENT ILLNESS: This is a 56-year-old gentleman, who was admitted on 03/02/2017 with worsening confusion and unsteadiness for the past several months. 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 The patient has a past medical history of hypertension, non- insulin diabetes, questionable obstructive sleep apnea, and paroxysmal atrial fibrillation on long-term anticoagulation. He did undergo a neurosurgical procedure to remove the ventricular mass, as well as EQUINE INTERN shunt placement. We were asked to see the patient in consultation for positive heme stools, as well as hemoglobin trending downward. The patient was seen and examined. The patient was acutely encephalopathic as all information was gathered from the medical record as well as his family at bedside. The patient is a Bruneian-speaking male, as his family at bedside does speak minimal Nepali. Son was present, who did interpret for me and did well. The patient is confused. The patient's denies any blood in the stool to her knowledge. She also states that he has complained of no abdominal pain, just "back pain." The patient's review of systems was limited secondary to the patient's mentation status. PAST MEDICAL HISTORY: Per the medical record, 1. Hypertension. 2. Diabetes. 3. Atrial fibrillation, on long-term anticoagulation. 4. Obstructive sleep apnea. PAST SURGICAL HISTORY: 1. Left shoulder surgery. PATIENT'S NAME: CORWIN ROSENBERG [facility] AGE: 56 Y [address] ROOM: [place] [address] LOCATION: [facility] ADMIT DATE: 03/02/2017 Consultation DISCHARGE DATE: FAMILY PHYSICIAN: PHYSICIAN, MONTY ATTENDING PHYSICIAN: Chela Martell 2. Intestinal sleeve surgery in the past. 3. Ventricular surgery. 4. EQUINE INTERN shunt placement. 5. Gastric bypass completed in 2012. SOCIAL HISTORY: There is a history of alcohol abuse and smoking abuse, unknown of quantity and longevity. No history of IV drug use per the medical record. FAMILY HISTORY: Unobtainable secondary to the patient's mentation status. Per the medical record, it appears that the parents were diabetic and had CAD, as well as a sibling. ALLERGIES: NO KNOWN MEDICATION ALLERGIES. CURRENT MEDICATIONS: Please refer to the medication administration record. REVIEW OF SYSTEMS: A ten-point review of systems was attempted, though unsuccessful secondary to the patient's acute encephalopathy. PHYSICAL EXAMINATION: GENERAL: A 56-year-old male, who appears to be in no acute distress. VITAL SIGNS: Temperature of 98.1, pulse of 84, respirations of 20, blood pressure of 114/72, and oxygen saturation of 96% on room air. SKIN: [place], warm, and dry. No jaundice. HEENT: Head is normocephalic and atraumatic. Pupils are equal, round, and reactive to light. Sclerae are clear and nonicteric. NECK: Soft and supple. CARDIOVASCULAR: Regular. Normal S1 and S2. RESPIRATORY: Respirations were even and unlabored. LUNGS: Clear to auscultation. ABDOMEN: Round and obese. When asked, this patient had pain, and the patient does nod 'yes' though cannot quantify or localize the pain. No rebound, rigidity, or guarding was noted. Bowel sounds were positive x4 quadrants. MUSCULOSKELETAL: No muscle weakness or atrophy. EXTREMITIES: No clubbing. No edema. NEUROLOGICAL: The patient does appear to be acutely encephalopathic. He is not appropriate during orientation questions as well. LABORATORY DATA AND DIAGNOSTICS: Most recent laboratory included a white blood cell count of 11.0. Hemoglobin [facility]: [facility] 56 Y [address] ROOM: [id number] [place], [place] [address] LOCATION: [facility] ADMIT DATE: 03/02/2017 Consultation DISCHARGE DATE: FAMILY PHYSICIAN: PHYSICIAN, NO ATTENDING PHYSICIAN: Chela Martell of 9.7; on admission, he was at 14.5, which it appears that he trended down in the last few days. Hematocrit of 28.9. MCV of 88.9. Platelets of 303. Chemistry panel includes a glucose of 59, BUN of 14, creatinine of 0.7, sodium of 143, potassium of 3.9, chloride of 106, CO2 of 31, albumin of 1.9, AST of 31, ALT of 52, alkaline phosphatase of 75, total bilirubin of 0.3, phosphorus of 2.2, and magnesium of 2.0. Hematest was positive for blood. There is a current MRI pending of the patient's brain secondary to his acute encephalopathy. ASSESSMENT AND PLAN: Again, this is a Bruneian-speaking 56-year-old male, who was admitted with confusion and worsening unsteadiness. We were consulted regarding the patient's anemia and heme-positive stool. 1. Anemia. The patient's hemoglobin has continued to trend downward. He was admitted with a hemoglobin of 14.5. No evidence of gastrointestinal blood loss except for positive heme stool. At this time, we will go forth with an upper endoscopy, diagnostic only, as the patient is on Xarelto for further evaluation of etiology of blood loss. We will request for the Xarelto to be held the evening prior to his endoscopy. 2. Acute encephalopathy, questionable metabolic, though unknown etiology. The patient will undergo an MRI tomorrow with the assistance of anesthesia for further evaluation as this will be coordinated with the upper endoscopy with Anesthesia assistance. 3. Positive occult stool. Again, the patient is currently on PPI therapy. We will go forth with an endoscopy for further evaluation. Further recommendations are to be given, status post upper endoscopy. Thank you for this consult. HORACIO THIBODEAUX, OFFSET PRESS ASSISTANT FOR MARILEE RIZO MD MMF/modl /[id number] d: 04/01/17 0021 t: 05/02/17 0725, CONSULTATION REPORT
--- NOTE | ~2017-03-02 | OR ---
PATIENT'S NAME: CORWIN ROSENBERG [facility] AGE: 56 Y [address] ROOM: [address] [address] LOCATION: [facility] ADMIT DATE: 03/02/2017 OR/Procedure Report DISCHARGE DATE: FAMILY PHYSICIAN: PHYSICIAN, NO ATTENDING PHYSICIAN: Chela Martell SURGEON: Chela Martell MD SOLDERER BARREL RIBS: Aracelis Quan. DATE OF PROCEDURE: 03/07/2017 PREOPERATIVE DIAGNOSIS: Hydrocephalus. POSTOPERATIVE DIAGNOSIS: Hydrocephalus. PROCEDURES PERFORMED: Placement of right frontal ventriculostomy. ANESTHESIA: General. HISTORY: The patient is a 56-year-old male, who presented with hydrocephalus secondary to intracranial masses. The nature of the masses is still uncertain, and a biopsy was taken earlier in the week and sent for pathology. We have not got the results back. Cysticercosis is also in the differential diagnosis. The patient, however, was becoming very restless, and there was concern that his intracranial pressure may be elevated. I felt that the ventriculostomy could be used in the meantime, pending final pathology confirmation as to the nature of the lesion. The procedure, benefits, and risks were explained to the patient's family. With their consent, the patient was brought to the Operating Room for surgery. PROCEDURE IN DETAIL: The patient was placed in a supine position. Anesthesia was induced and he was intubated. The hair on the right side of his head was clipped. The incision line was marked out at 12.5 cm behind the mid-pupillary line. Local anesthesia was infiltrated. The incision was opened, and the scalp flap was held back with self-retaining retractor. A twist drill was used to drill a hole through the skull. The catheter was then tunneled under the skin and brought out of the entry point. The catheter was inserted into the ventricles. Opening pressure was about 19 cm of water. The catheter was then secured to the scalp. The entry-point incision was closed. The patient's anesthesia was reversed. DISPOSITION: He was extubated, and taken back to the Recovery Room to complete his recovery. ATTESTATION: I was present at and performed every aspect of this procedure, assisted at some stages by Operating Room nurses. PATIENT'S NAME: CORWIN ROSENBERG [facility] AGE: 56 Y [address] ROOM: [address] [address] LOCATION: [facility] ADMIT DATE: 03/02/2017 OR/Procedure Report DISCHARGE DATE: FAMILY PHYSICIAN: PHYSICIAN, NO ATTENDING PHYSICIAN: Chela Martell COMPLICATIONS: There were no apparent intraoperative complications. COUNT RESULTS: Swabs, needles, and instruments were all accounted for at the end of the case. ESTIMATED BLOOD LOSS: Less than 10 mL, and there was no reason for blood transfusion. PLAN: We await the final pathology of this lesion, but hopefully, the ventriculostomy will provide relief of intracranial pressure until definitive treatment is instituted. MD IRINA CASTROO/modl /[id number] d: 03/12/17 0043 t: 03/12/17 2202, OPERATIVE SUMMARY
--- NOTE | ~2017-03-02 | DS ---
PATIENT'S NAME: CORWIN ROSENBERG [facility] AGE: 57 Y [address] ROOM: [address] [address] LOCATION: [facility] ADMIT DATE: 03/02/2017 Discharge Summary DISCHARGE DATE: 04/08/2017 FAMILY PHYSICIAN: , MONTY ATTENDING PHYSICIAN: Chela Martell The patient was transferred to [facility] in [place] on April 08, 2017. REASON FOR ADMISSION: The patient is a 57-year-old gentleman admitted on March 02, 2017. The patient presented with headache and dizziness. The patient also had blurred vision and had been falling quite a bit. He generally felt unwell. On examination, the patient was able to stand up and take a few steps by himself, but he was very unsteady. He is quite large. Imaging studies showed communicating hydrocephalus. MRI scan showed multiple enhancing lesions, some of which were in the ventricles contributing to causing the hydrocephalus. TREATMENT RENDERED: The patient was admitted to hospital for workup. 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 On March 05, 2017, the patient underwent suboccipital craniectomy and biopsy of the mass in the fourth ventricle. This was performed to help achieve diagnosis and also to remove the obstruction of CSF and hopefully resolve the hydrocephalus. The patient underwent surgery without any problem. Unfortunately, the hydrocephalus persisted despite the attempts to remove the obstruction in the ventricle. The biopsy material also was not conclusive as to whether it was an infection or if this was a tumor. The patient remained very restless and there was concern that he still had increased intracranial pressure. For this reason, he was taken back to the operating room on March 07, 2017, and underwent placement of a right ventriculostomy for temporary control of his intracranial pressure while trying to figure out what was causing his hydrocephalus. The spinal fluid was also sent for cysticercosis testing and the antibody test came back neither positive nor negative. During this time, I decided to try the patient on treatment for cysticercosis on an empirical basis. Following discussions with Pharmacy, we decided on appropriate dose of the patient and he was started on praziquantel. Infectious Disease was also contacted and they agreed to this PATIENT'S NAME: CORWIN ROSENBERG [facility] AGE: 57 Y [address] ROOM: [id number] [place], [place] [address] LOCATION: [facility] ADMIT DATE: 03/02/2017 Discharge Summary DISCHARGE DATE: 04/08/2017 FAMILY PHYSICIAN: MONTY BURRELL ATTENDING PHYSICIAN: Chela Martell treatment. The drug was started on March 11, 2017. We also wanted to cover the patient for meningitis and he was started on antibacterial treatment as well. The patient's level of consciousness improved after the ventriculostomy was placed. He continued the treatment with praziquantel as mentioned earlier. The patient was seen by Psychiatry because of delirium and acute hyperactivity and a med adjustment since treatments to try and control the agitation. It was not possible to wean the patient off the ventriculostomy. He still continue to have hydrocephalus and we did not have a diagnosis as to the underlying cause. We decided to place a ventriculoperitoneal shunt to control the hydrocephalus once and for all. The patient was taken to the operating room on March 13, 2017. Dr. Gorman and myself working together, performed a ventriculoperitoneal shunt for the patient. Once again, spinal fluid was sent for cysticercosis type. The patient was supported and cared for by the hospitalists, neurosurgeons, farm demonstrator, and Psychiatry. Overall, his condition slowly improved and he got to the point where he could ambulate with Physical Therapy, although he had to stop frequently to rest and continue ambulation again. Repeat imaging studies showed that the lesions had started to decrease in size. It was not certain whether the reduction in size of the masses was from praziquantel or whether it is from the steroids that the patient had also received early on his treatment. Arrangements were made to transfer the patient to long-term care and this was eventually achieved on April 08, 2017. I plan to follow the patient in the clinic with a repeat MRI scan to keep track of the lesions in his brain and also to keep track of his hydrocephalus. The patient has a programmable shunt. The last setting on his shunt was 12 cm of water to help CSF drainage. If the patient has an MRI scan, it is recommended that an x-ray should be obtained to make sure that the setting has not changed from MRI scan magnets. At the time of dismissal, the patient was ambulatory, he was able to follow commands, he was able to verbalize and interact with his family. He was just very weak overall. Hopefully, the treatment given so far will result in the lesions disappearing; but if the lesions come back, we will have to perform a biopsy again to try and get a diagnosis. I should mention that the patient was seen by Nephrology while in hospital and they also contributed to his treatments. 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 PATIENT'S NAME: [facility] AGE: 57 Y [address] ROOM: [place] [address] LOCATION: [facility] ADMIT DATE: 03/02/2017 Discharge Summary DISCHARGE DATE: 04/08/2017 FAMILY PHYSICIAN: MONTY BURRELL ATTENDING PHYSICIAN: Chela Martell MD IRINA CASTROO/modl /[id number] d: 04/14/17 215 t: 04/18/17 1339, DISCHARGE SUMMARY
--- NOTE | ~2017-03-02 | ECHO ---
Transthoracic Echocardiography Report (TTE) Demographics Patient Name CORWIN ROSENBERG, Date of Study 03/30/2017 EARNESTINE Patient Number [id number] Visit Number [id number] Date of 1960 Room Number G6230 Gender Male Number Age 56 year(s) Referring [facility] Transcriber Marquita Schafer RD, Physician RVT Physician Interpreting Lyle Randall Financial Supervisor Physician A Supervising Ordering [facility] /MLP Physician MD Nurse Stress Soaker Meat Conclusions Summary The estimated left ventricular ejection fraction is 45-50%. Mild concentric left ventricular hypertrophy. Technically difficult study. Diastolic function indeterminate due to patient's arrhythmia. The left atrium is moderately dilated by LA volume index measurement. There is mild pulmonary hypertension. The pulmonary pressure (RVSP) is 39 mmHg. Mild tricuspid regurgitation by color Doppler. Small circumferential pericardial effusion. Mild mitral regurgitation by color Doppler. Procedure Type of Study TTE procedure:2D Echocardiogram. Procedure Date Date: 03/30/2017 Start: 01:01 PM Study Location: Inpatient Portable Technical Quality: Poor visualization due to combative patient. Indications:Ventricular Tachycardia. Appropriate Use Criteria: 9 Patient Status: STAT Rhythm: Sinus tachycardia HR: 108 bpm BP: 134/88 mmHg M-Mode/2D Measurements LV Diastolic Dimension: 5.28 cm LV Systolic Dimension: 3.91 cm LV Septum Diastolic: 1.13 cm LV Septum Systolic: 3.18 cm LV PW Diastolic: 1.18 cm AO Root Dimension: 2.1 cm Cardiac Output: 4.65 l/min AV Cusp Separation: 2.1 cm RV Diastolic Dimension: 2.88 cm LA volume: 84 ml LVOT: 2 cm RV Base: 3.98 cm LVOT VTI: 13.7 cm RV Mid: 2.23 cm LV Stroke volume: 43.02 ml TAPSE: 14 cm TDI-S': 9 cm/s Doppler Measurements AV Peak Velocity: 1.42 m/s MV Peak E-Wave: 1.02 m/s AV Peak Gradient: 8.07 mmHg MV Peak A-Wave: 0.33 m/s AV Mean Gradient: 4 mmHg MV E/A Ratio: 3.08 LVOT Peak Velocity: 0.87 m/s MV P1/2t: 51 msec TR Gradient:36.72 mmHg PV Peak Velocity: 1.06 m/s Estimated RAP:3 mmHg PV Peak Gradient: 4.49 mmHg Estimated RVSP: 40 mmHg Estimated PASP: 39.72 mmHg Findings Left Ventricle The estimated left ventricular ejection fraction is 55-60%. Mild concentric left ventricular hypertrophy. Diastolic function indeterminate due to patient's arrhythmia. Right Ventricle Mildly reduced right ventricular function. Mild to moderately dilated right ventricle. Left Atrium The left atrium is moderately dilated by LA volume index measurement. Right Atrium Normal right atrial size. Mitral Valve Mild mitral regurgitation by color Doppler. Aortic Valve The aortic valve is mildly sclerotic. There is trivial aortic regurgitation by color Doppler. Tricuspid Valve There is mild pulmonary hypertension. The pulmonary pressure (RVSP) is 39 mmHg. Mild tricuspid regurgitation by color Doppler. Pulmonic Valve The pulmonic valve is not well visualized. Pericardial Effusion Small circumferential pericardial effusion. Miscellaneous Visualized portions of the aortic root and ascending aorta appear normal in size. Pleural Effusion No evidence of pleural effusion. Signature dtt: Lino Alvarenga dtd: 03/30/17 [id number] Physician Self Edit
--- NOTE | ~2017-03-02 | OR ---
PATIENT'S NAME: EARNESTINE YOUNG [facility] AGE: 56 Y [address] ROOM: [place] [address] LOCATION: GICU ADMIT DATE: 03/02/2017 OR/Procedure Report DISCHARGE DATE: FAMILY PHYSICIAN: PHYSICIAN, NO ATTENDING PHYSICIAN: Chela Martell SURGEON: Dave Gorman MD AIRCRAFT AIR CONDITIONING MECHANIC: DATE OF PROCEDURE: 03/13/2017 PREOPERATIVE DIAGNOSIS: Hydrocephalus with decreased level of consciousness. POSTOPERATIVE DIAGNOSIS: Hydrocephalus with decreased level of consciousness. PROCEDURE: Laparoscopic intraabdominal placement of ventriculoperitoneal catheter. FINDINGS: CSF was able to be obtained from the distal catheter. ESTIMATED BLOOD LOSS: Less than 20 mL. COMPLICATIONS: None. INDICATIONS: The patient is a 56-year-old male who is a patient of Dr. Martell's was felt to be in need of ventriculoperitoneal shunt. Due to his obesity and previous abdominal surgery, I was asked to help perform the procedure with intraabdominal placement of the shunt. I discussed the risks, benefits, and alternatives of intraabdominal shunt placement with the patient's family and they elected to proceed. DESCRIPTION OF PROCEDURE: The patient was taken to the operating room in supine, given IV sedation, and intubated. His abdomen, chest, neck, and head were all prepped and sterilely draped. Dr. Martell worked on intracranial portion while I worked on the intraabdominal portion. A small incision was created just superior to the umbilicus. The abdomen was elevated. Veress needle was inserted. Pneumoperitoneum was induced. Following this, a 5-mm trocar was inserted followed by insertion of the camera. There was no injury from initial trocar placement. The bowel was noted to be quite dilated. A second 5-mm trocar was inserted in the midline as well. This was done under direct visualization. Dr. Martell tunneled the catheter to the right abdominal wall. I then made a small incision over the tunneler delivered the catheter through the incision. Through this small incision, an introducer needle was placed under laparoscopic visualization followed by wire placement. The tear- away introducer sheath was then placed through the abdominal wall into the abdominal cavity. The wire was removed. The ventriculoperitoneal shunt was then placed through the tear-away sheath. The sheath was removed holding the PATIENT'S NAME: EARNESTINE YOUNG [facility] AGE: 56 Y [address] ROOM: [place] [address] LOCATION: GICU ADMIT DATE: 03/02/2017 OR/Procedure Report DISCHARGE DATE: FAMILY PHYSICIAN: PHYSICIAN, NO ATTENDING PHYSICIAN: Chela Martell catheter in position. We brought the catheter out through the 5-mm trocar site. Once Dr. Martell connected the system, I aspirated CSF fluid, which aspirated quite easily. The shunt was placed back into the peritoneal cavity. The pneumoperitoneum was released. The area appeared hemostatic. The trocars were removed. The skin edges of all 3 incisions were then closed with 4-0 Monocryl suture. Steri-Strips and sterile dressings were placed. Dr. Martell completed his intracranial portion. DAVE MD CHRYSTAL DELAROSA/modl /[id number] d: 03/14/17 0022 t: 03/25/17 181, OPERATIVE SUMMARY
--- NOTE | ~2017-03-02 | HP ---
PATIENT'S NAME: CORWIN NOLASCO [facility] AGE: 56 Y [address] ROOM: [place] [address] LOCATION: [facility] ADMIT DATE: 03/02/2017 History & Physical DISCHARGE DATE: FAMILY PHYSICIAN: PHYSICIAN, UNKNOWN ATTENDING PHYSICIAN: Chela Martell DATE OF SERVICE: 03/02/2017 REFERRING PHYSICIAN: Cecy Torres APRN. REASON FOR REFERRAL: Hydrocephalus. PATIENT IDENTIFICATION: Alexei Nolasco is a 56-year-old male. PRESENTING COMPLAINT: Headache and dizziness. HISTORY OF PRESENT ILLNESS: The patient's symptoms began about a month ago. He started to complain of dizziness. He was initially seen by an ENT physician and given some anti- dizziness medicines but did not improve. Symptoms worsened, and the patient actually had a fall this evening and fell on his forehead. His family got concerned and brought him to the emergency room where he was evaluated. A head CT scan was performed, and it showed hydrocephalus, see below. I was therefore consulted to see the patient. In addition to the unsteadiness, the patient has had problems with his vision including blurred vision and double vision. He has also complained of nausea and vomiting. When he had a fall this evening, he was a little bit confused, and he mistook his [id number] for his . The patient has also had a headache. He has generally felt unwell. PAST MEDICAL HISTORY: The patient had a right shoulder surgery in October last year. Prior to that, he has had a gastric bypass in 2012. He also has a history of atrial fibrillation, and he is on Xarelto. Other pertinent history includes high blood pressure, diabetes, previous coronary artery bypass graft. CURRENT MEDICATIONS: Please see chart. PATIENT'S NAME: CORWIN NOLASCO [facility] AGE: 56 Y [address] ROOM: [place] [address] LOCATION: [facility] ADMIT DATE: 03/02/2017 History & Physical DISCHARGE DATE: FAMILY PHYSICIAN: PHYSICIAN, UNKNOWN ATTENDING PHYSICIAN: Chela Martell ALLERGIES: NONE KNOWN. FAMILY HISTORY: There is no family history of similar problems. SOCIAL HISTORY: The patient is originally from [place] but has lived in [place] for the last 13 years. He was recently in [place] 2 months ago. He had his shoulder surgery done in [place]. There is confirmation that the patient does eat pork but not in excessive amounts. The patient is a smoker. He does not drink alcohol a lot. He is . REVIEW OF SYSTEMS: A 10-point review of systems was carried out. The only abnormal finding is as described in the history of present illness. PHYSICAL EXAMINATION: GENERAL: The patient is a large-framed individual, who is alert and cooperative through the examination. VITAL SIGNS: Blood pressure is 167/84 with a pulse rate of 97, respirations 16, oxygen saturation 97. NEUROLOGIC: The patient is slightly drowsy but arousable. Speech: The patient speaks Gambian, but he is able to communicate through his family, and he appears to be coherent and comprehensible. Cranial Nerves: No deficits seen. Motor examination: The patient has normal strength in his upper and lower extremities bilaterally. He is able to stand up and take a few steps by himself. He is slightly unsteady. HEAD: His head is atraumatic. EYES AND EARS: No evidence of trauma. SKIN: No skin rashes or skin masses. EXTREMITIES: No cyanosis or clubbing. CARDIOVASCULAR: Heart sounds are present. RESPIRATORY SYSTEM: The patient is not short of breath at bedside. ABDOMEN: Protuberant. REVIEW OF IMAGING STUDIES: The patient has had a head CT scan performed today. The head CT scan shows dilatation of all the ventricles consistent with communicating hydrocephalus. This is different from previous head CT scan performed in March of last year. According to the family, the patient already had an MRI scheduled on account PATIENT'S NAME: CORWIN NOLASCO [facility] AGE: 56 Y [address] ROOM: [id number] [address] LOCATION: [facility] ADMIT DATE: 03/02/2017 History & Physical DISCHARGE DATE: FAMILY PHYSICIAN: PHYSICIAN, UNKNOWN ATTENDING PHYSICIAN: Chela Martell of his symptoms, that MRI was to have been done tomorrow. ASSESSMENT: A 56-year-old male with balance problems, headaches, and confusion. Head CT scan shows communicating hydrocephalus. The fact that the patient has recently traveled to [place] and has a history of pork consumption could mean that this hydrocephalus is from cysticercosis. MEDICAL DECISION MAKING: The patient is being admitted to hospital for further treatment. We will go ahead and complete the MRI scan as already scheduled. He will likely require a ventriculoperitoneal shunt to treat his hydrocephalus, but if an underlying cause is identified, that is amenable to treatment, that could also be an option. I have informed the family of the possibility of the shunt. The patient would be kept on close observation tonight to make sure his pressure does not become excessive, and his level of consciousness to decrease. If his level of consciousness decreases further, he may need a ventriculostomy as a temporary measure while completing his workup. I will see the patient in the morning. MD SHY CASTRO/inderjitl /[id number] D: 023 T: 911 HISTORY & PHYSICAL
[2017-03-02 19:51] LABS: BASOPHIL % 0.3 %; BICARBONATE 36.3 mmol/L (18.0-23.0); EOSINOPHIL # 0.1 K/uL (0.0-0.5); EOSINOPHIL % 2.1 %; HEMATOCRIT 44.1 % (37.0-53.0); HEMOGLOBIN 14.5 g/dL (12.0-17.0); IMMATURE GRANULOCYTE % 0.2 %; LYMPHOCYTE % 33.7 %; MCHC 32.9 gm/dL (32.0-36.5); MCV 91.3 fl (83.0-98.0); MONOCYTE # 0.4 K/uL (0.0-1.0); MONOCYTE % 7.5 %; MPV 9.9 fl (9.4-12.4); NEUTROPHIL # (ANC) 3.3 K/uL (1.4-9.0); NEUTROPHIL % 56.2 %; NRBC % 0 /100WBC (0-0.00); PCO2 60 mmHg (35-45); PLATELET COUNT 225 K/uL (150-450); RBC 4.83 M/uL (4.00-6.00); RDW-CV 12.2 % (11.9-14.6); WBC 5.9 K/uL (4.0-11.0)
[2017-03-02 19:53] LABS: PO2 35 mmHg (80-90)
[2017-03-02 20:01] LABS: INR - (THERAPEUTIC) 0.99 (0.92-1.07); PROTIME 10.4 SECONDS (9.8-11.4); PTT 25 SECONDS (25-32)
[2017-03-02 20:12] LABS: ALBUMIN 3.1 gm/dL (3.5-5.0); ALK PHOS 94 IU/L (33-138); ALT 35 IU/L (12-78); ANION GAP 10.7 (10.0-19.0); AST 22 IU/L (10-40); BLOOD UREA NITROGEN 7 mg/dL (6-24); CALCIUM 8.2 mg/dL (8.5-10.5); CHLORIDE 101 mMol/L (96-110); CO2 31 mMol/L (22-32); CPK 144 IU/L (35-332); CREATININE 0.6 mg/dL (0.6-1.3); ESTIMATED GFR (MDRD EQUATION) > 60; POTASSIUM 3.7 mMol/L (3.7-5.1); SODIUM 139 mMol/L (135-145); TOTAL BILIRUBIN 0.6 mg/dL (0.0-1.5); TOTAL PROTEIN 6.9 g/dL (6.0-8.4)
[2017-03-02 22:11] LABS: BILIRUBIN URINE NEGATIVE (NEGATIVE); BLOOD URINE NEGATIVE /UL (NEGATIVE); COLOR URINE YELLOW (YELLOW); GLUCOSE URINE NEGATIVE (NEGATIVE); KETONE URINE NEGATIVE (NEGATIVE); LEUKOCYTES URINE NEGATIVE /UL (NEGATIVE); NITRITE URINE NEGATIVE (NEGATIVE); PROTEIN URINE NEGATIVE (NEGATIVE); SPEC GRAVITY URINE 1.015 (1.003-1.035); TURBIDITY URINE CLEAR (CLEAR); UROBILINOGEN URINE NORMAL (NORMAL)
--- NOTE | 2017-03-03 06:56 | NUR ---
Significant Event: PATIENT ADMITTED AT 2100. PATIENT IS MOZAMBICAN SPEAKING ONLY. SEE NEURO ASSESSMENT. HR'S 100'S-170'S. METOPROLOL GIVEN AT 0100, NO CHANGE IN HR'S. 0400 CARDIZEM GTT STARTED TO KEEP HR'S <100. O2 SATS ON RA >95%. CLEAR AND DIMINISHED LUNG SOUNDS THROUGHOUT. NO BM DURING SHIFT. AFEBRILE. VOIDS PER URINAL, ADEQ UOP. Follow up:MRI THIS AM.
[2017-03-03] MEDS ORDERED: FLUOROMETHOLONE15 ML OPHTH (12:51)
[2017-03-03] MEDS ORDERED: LIPITOR20 M1 PO (12:52)
[2017-03-03] MEDS ORDERED: HYGROTON25 MG PO (12:52)
[2017-03-03] MEDS ORDERED: TOPROL XL100 MG PO (12:53)
[2017-03-03] MEDS ORDERED: ALTACE10 MG PO (12:53)
[2017-03-03] MEDS ORDERED: GLUCOPHAGE1000 MG PO (12:53)
[2017-03-03] MEDS ORDERED: LEVOTHROID (S150 MCG PO (12:53)
[2017-03-03] MEDS ORDERED: MULTIPLE VITAM1 EACH PO (12:54)
[2017-03-03] MEDS ORDERED: XARELTO20 MG PO (12:54)
[2017-03-03] MEDS ORDERED: CALCIUM CARBON600 MG PO (12:54)
[2017-03-03] MEDS ORDERED: FISH OIL 1,2001 EAC1 PO (12:54)
[2017-03-03] MEDS ORDERED: VITAMIN D1000 UNIT PO (12:54)
[2017-03-03] MEDS ORDERED: ASCORBIC ACID500 MG PO (12:56)
--- NOTE | 2017-03-03 14:43 | NUR ---
Significant Event: Patient is hebrew speaking only. Son helps with assessments. Patient has been A&O X3 until the 1300 neuro check. Patient was disoriented to time/place, and was having visual hallicunations. SBP have been low 100's-one teens, MAP's have been 80', HR have been 60's-70's. Patient is on RA with o2 sats mid to upper 90's. Lung sounds are clear. Patient voids per urinal. Patient is a one assist. Follow up:
[2017-03-04 05:05] LABS: BASOPHIL % 0.1 %; EOSINOPHIL % 0.1 %; HEMATOCRIT 42.1 % (37.0-53.0); HEMOGLOBIN 14.1 g/dL (12.0-17.0); IMMATURE GRANULOCYTE # 0.1 K/uL (0.0-0.3); IMMATURE GRANULOCYTE % 0.4 %; LYMPHOCYTE # 1.4 K/uL (0.8-4.0); LYMPHOCYTE % 9.8 %; MCH 30.3 pg (27.0-34.0); MCHC 33.5 gm/dL (32.0-36.5); MCV 90.5 fl (83.0-98.0); MONOCYTE # 0.3 K/uL (0.0-1.0); MPV 10.3 fl (9.4-12.4); NEUTROPHIL # (ANC) 12.1 K/uL (1.4-9.0); NEUTROPHIL % 87.6 %; NRBC % 0 /100WBC (0-0.00); PLATELET COUNT 244 K/uL (150-450); RBC 4.65 M/uL (4.00-6.00); RDW-CV 12.2 % (11.9-14.6); WBC 13.8 K/uL (4.0-11.0)
--- NOTE | 2017-03-04 05:06 | NUR ---
A/OX3. No c/o n/t, or pain. Rhythm continue is Afib. Cardizem gtt restarted for HR 90-100s. Afebrile. Continues on RA. BM this shift. Ambulates to bathroom but is slightly unsteady. Follow up: Continue to monitor Neuro status. Surgery on Friday.
[2017-03-04 05:23] LABS: ALBUMIN 2.8 gm/dL (3.5-5.0); ANION GAP 11.9 (10.0-19.0); CALCIUM 8.3 mg/dL (8.5-10.5); CHLORIDE 104 mMol/L (96-110); CO2 29 mMol/L (22-32); CREATININE 0.7 mg/dL (0.6-1.3); ESTIMATED GFR (MDRD EQUATION) > 60; PHOSPHORUS 3.1 mg/dL (2.5-4.9); POTASSIUM 3.9 mMol/L (3.7-5.1); SODIUM 141 mMol/L (135-145)
[2017-03-04 05:24] LABS: BLOOD UREA NITROGEN 14 mg/dL (6-24)
--- NOTE | 2017-03-04 16:45 | NUR ---
Significant Event: Patient is alert, forgetful at times, reorients easily to time and place. Neurochecks Q2H. Persian speaking only, family helps with assessments. HR currently 70s-80s, cardizem gtt off at 1540. Lung sounds clear, on RA. Patient is 1A up to toilet. C/O of headache treated x1 with [place] this am. Shower today. Follow up:
[2017-03-04 22:41] LABS: BASOPHIL % 0.1 %; HEMATOCRIT 42.9 % (37.0-53.0); HEMOGLOBIN 14.2 g/dL (12.0-17.0); IMMATURE GRANULOCYTE # 0.1 K/uL (0.0-0.3); IMMATURE GRANULOCYTE % 0.7 %; LYMPHOCYTE # 1.3 K/uL (0.8-4.0); MCHC 33.1 gm/dL (32.0-36.5); MCV 90.5 fl (83.0-98.0); MONOCYTE # 0.5 K/uL (0.0-1.0); MONOCYTE % 2.8 %; MPV 10.1 fl (9.4-12.4); NEUTROPHIL # (ANC) 14.4 K/uL (1.4-9.0); NEUTROPHIL % 88.4 %; NRBC % 0 /100WBC (0-0.00); PLATELET COUNT 276 K/uL (150-450); RBC 4.74 M/uL (4.00-6.00); RDW-CV 12.2 % (11.9-14.6)
[2017-03-04 22:44] LABS: WBC 16.3 K/uL (4.0-11.0)
[2017-03-04 22:52] LABS: PROTIME 10.5 SECONDS (9.8-11.4)
[2017-03-04 23:00] LABS: ALBUMIN 2.8 gm/dL (3.5-5.0); ALK PHOS 91 IU/L (33-138); ALT 46 IU/L (12-78); ANION GAP 9.9 (10.0-19.0); AST 24 IU/L (10-40); BLOOD UREA NITROGEN 20 mg/dL (6-24); CALCIUM 8.5 mg/dL (8.5-10.5); CHLORIDE 103 mMol/L (96-110); CO2 30 mMol/L (22-32); CREATININE 0.9 mg/dL (0.6-1.3); ESTIMATED GFR (MDRD EQUATION) > 60; POTASSIUM 3.9 mMol/L (3.7-5.1); SODIUM 139 mMol/L (135-145); TOTAL BILIRUBIN 0.4 mg/dL (0.0-1.5); TOTAL PROTEIN 6.6 g/dL (6.0-8.4)
--- NOTE | 2017-03-05 04:47 | NUR ---
Significant Event: Patient somali speaking only. Family at bedside at all times to translate. Patient is restless at times, pulled out 2 IVs, continues to ask for food/drinks of water. Remind patient that he is NPO due to surgery. No c/o pain. Ambulates with family assist in room up to bathroom. Tolerating food/fluids up until midnight without complications. VSS. Room air. Slept in chair for part of the night. Follow up: Plan for OR with Dr. Martell. Continue to monitor.
[2017-03-05 05:02] LABS: BASOPHIL % 0.1 %; HEMATOCRIT 41.3 % (37.0-53.0); IMMATURE GRANULOCYTE # 0.1 K/uL (0.0-0.3); IMMATURE GRANULOCYTE % 0.8 %; LYMPHOCYTE # 1.3 K/uL (0.8-4.0); MCH 30.4 pg (27.0-34.0); MCHC 33.9 gm/dL (32.0-36.5); MCV 89.6 fl (83.0-98.0); MONOCYTE # 0.4 K/uL (0.0-1.0); MONOCYTE % 2.3 %; MPV 10.3 fl (9.4-12.4); NEUTROPHIL # (ANC) 14.1 K/uL (1.4-9.0); NEUTROPHIL % 88.8 %; NRBC % 0 /100WBC (0-0.00); PLATELET COUNT 268 K/uL (150-450); RBC 4.61 M/uL (4.00-6.00); RDW-CV 12.2 % (11.9-14.6); WBC 15.9 K/uL (4.0-11.0)
[2017-03-05 05:22] LABS: ALBUMIN 2.7 gm/dL (3.5-5.0); ALK PHOS 87 IU/L (33-138); ALT 38 IU/L (12-78); AST 19 IU/L (10-40); BLOOD UREA NITROGEN 17 mg/dL (6-24); CALCIUM 8.3 mg/dL (8.5-10.5); CHLORIDE 104 mMol/L (96-110); CO2 29 mMol/L (22-32); CREATININE 0.7 mg/dL (0.6-1.3); ESTIMATED GFR (MDRD EQUATION) > 60; SODIUM 141 mMol/L (135-145); TOTAL BILIRUBIN 0.4 mg/dL (0.0-1.5); TOTAL PROTEIN 6.4 g/dL (6.0-8.4)
--- NOTE | 2017-03-05 17:31 | NUR ---
Significant Event:Alert to self. SBP elevated with patient restlessness, decreased to 150's when resting. Trying to convince family to let him rest. Limited to 2 people in the room at a time, with lights off, classical music playing, cool cloth to forehead and fan on. Tolerating PO meds with sips. Cardoso patent. Last TIKI in PACU, explained to family that Narcotics were not the drug of choice for pain control. Encourage decreasing stimulation, so patient can sleep. Dressing to posterior head, covered with island barrier. Sclera are edematous. Follows all commands, no report of numbness or tingling. REturned from OR at 1500. Family is at the bedside. Follow up:Recover
--- NOTE | 2017-03-06 05:02 | NUR ---
Significant Event: Patient AOx3. Moves all extremeties with equal strength to command. Denies numbness and tingling. PERRLA. Bengali speaking, speech clear. Afib, Cardizem continues for elevated HR, currently at 5mg/hr, ordered to be d/c'd in AM. Hypertensive, labetolol and hydralazine given x1 each for SBP>170. Afebrile. On 2L/NC, lung sounds clear, and clear and diminished in lowers. Bowel sounds active, no bm this shift. Cardoso intact, good UOP. Posterior head incision has bloody shadow, intact. R)IJ, PIV intact, cardizem and NS infusing. Follow up: MRI head today, Continue hourly neuro and vitals.
[2017-03-06 05:06] LABS: ANION GAP 10.5 (10.0-19.0); BLOOD UREA NITROGEN 12 mg/dL (6-24); CALCIUM 8.1 mg/dL (8.5-10.5); CHLORIDE 100 mMol/L (96-110); CO2 32 mMol/L (22-32); CREATININE 0.7 mg/dL (0.6-1.3); ESTIMATED GFR (MDRD EQUATION) > 60; POTASSIUM 3.5 mMol/L (3.7-5.1); SODIUM 139 mMol/L (135-145)
[2017-03-06 05:40] LABS: BASOPHIL % 0.1 %; HEMOGLOBIN 12.6 g/dL (12.0-17.0); IMMATURE GRANULOCYTE # 0.1 K/uL (0.0-0.3); IMMATURE GRANULOCYTE % 0.9 %; LYMPHOCYTE # 1.3 K/uL (0.8-4.0); MCH 30.1 pg (27.0-34.0); MCHC 33.2 gm/dL (32.0-36.5); MCV 90.9 fl (83.0-98.0); MONOCYTE % 6.8 %; MPV 10.2 fl (9.4-12.4); NEUTROPHIL # (ANC) 11.7 K/uL (1.4-9.0); NEUTROPHIL % 83.2 %; NRBC % 0 /100WBC (0-0.00); PLATELET COUNT 264 K/uL (150-450); RBC 4.18 M/uL (4.00-6.00); RDW-CV 12.6 % (11.9-14.6); WBC 14.1 K/uL (4.0-11.0)
--- NOTE | 2017-03-06 07:00 | NUR ---
called to clarify patient's status. Patient was to be ICU status post crani. Hourly vitals and neuro checks performed throughout night per post-op crani orders.
--- NOTE | 2017-03-06 08:40 | NUR ---
A - NUTRITION F/U. LABS: K+ 3.5, GLU 197, WBC 14.1. WT DOWN 15# SINCE ADMISSION; SUSPECT ERROR IN WT PT NOT BEING DIURESED AND INTAKE GOOD WHEN DIET HAS BEEN ORDERED. PT IS CURRENTLY NPO. D - AT RISK W/ INADEQUATE ORAL INTAKE R/T FREQUENT NPO STATUS AEB DIET ORDER, INTAKE RECORD. I - GOAL: 50-100% INTAKE. M/E - WILL ADD GLUCERNA BID W/ BF AND DINNER TO INCREASE PROTEIN ALLOWANCE. WILL F/U IN 3-5 DAYS.
[2017-03-06 08:54] LABS: ANION GAP 10.7 (10.0-19.0); BLOOD UREA NITROGEN 11 mg/dL (6-24); CALCIUM 8.3 mg/dL (8.5-10.5); CHLORIDE 100 mMol/L (96-110); CO2 34 mMol/L (22-32); CREATININE 0.7 mg/dL (0.6-1.3); ESTIMATED GFR (MDRD EQUATION) > 60; POTASSIUM 3.7 mMol/L (3.7-5.1); SODIUM 141 mMol/L (135-145)
--- NOTE | 2017-03-06 12:17 | NUR ---
Significant Event: Alert and oriented x3. Follows commands. Moves all extremities spontaneously and to command. PERRLA. Strength equal bilaterally to extremities. Pain morphine and norco given. Transfers 1 assist, gaitbelt. Voids per urinal. Janae gonzáles'd at 0855. PRN labetalol and hydralazine for sbp > 170. AFib. Showered this shift. IV to L) AC saline locked, good blood return. R) GARRY dc'd. Transferred to [facility] and then to [facility] and wally espinoza to assume cares. Follow up: transferring to [facility].
[2017-03-06 15:48] LABS: ANION GAP 10.9 (10.0-19.0); BLOOD UREA NITROGEN 13 mg/dL (6-24); CALCIUM 8.8 mg/dL (8.5-10.5); CHLORIDE 99 mMol/L (96-110); CO2 34 mMol/L (22-32); CREATININE 0.8 mg/dL (0.6-1.3); ESTIMATED GFR (MDRD EQUATION) > 60; POTASSIUM 3.9 mMol/L (3.7-5.1); SODIUM 140 mMol/L (135-145)
[2017-03-06 19:38] LABS: ANION GAP 8.8 (10.0-19.0); BLOOD UREA NITROGEN 17 mg/dL (6-24); CHLORIDE 99 mMol/L (96-110); CO2 33 mMol/L (22-32); CREATININE 0.8 mg/dL (0.6-1.3); ESTIMATED GFR (MDRD EQUATION) > 60; POTASSIUM 3.8 mMol/L (3.7-5.1); SODIUM 137 mMol/L (135-145)
--- NOTE | 2017-03-07 03:47 | NUR ---
Significant Event:Patient is A/OX3. FOLLOWS COMMANDS. MOVES ALL EXTREMITIES. RESTLESS AND IMPULSIVE AT TIMES. PERRLA. PT DENIES NUMBNESS/TINGLING. PT C/O OF BLURRED VISION, GETTING BETTER THROUGHOUT THE NIGHT. HR'S 70'S-100'S. SBP 120'S-150'S. VSS. REMAINS ON RA. CLEAR AND DIMINISHED LUNG SOUNDS. MORPHINE AND NORCO GIVEN FOR PAIN. VOIDS PER URINAL. FAMILY AT BEDSIDE THROUGHOUT THE NIGHT. AFEBRILE. Follow up:
[2017-03-07 05:10] LABS: BASOPHIL % 0.1 %; HEMATOCRIT 39.6 % (37.0-53.0); HEMOGLOBIN 13.4 g/dL (12.0-17.0); IMMATURE GRANULOCYTE # 0.1 K/uL (0.0-0.3); LYMPHOCYTE # 1.1 K/uL (0.8-4.0); LYMPHOCYTE % 8.8 %; MCH 30.2 pg (27.0-34.0); MCHC 33.8 gm/dL (32.0-36.5); MCV 89.2 fl (83.0-98.0); MONOCYTE # 0.7 K/uL (0.0-1.0); MONOCYTE % 5.2 %; NEUTROPHIL # (ANC) 11.1 K/uL (1.4-9.0); NEUTROPHIL % 84.9 %; NRBC % 0 /100WBC (0-0.00); PLATELET COUNT 247 K/uL (150-450); RBC 4.44 M/uL (4.00-6.00); RDW-CV 12.3 % (11.9-14.6)
[2017-03-07 05:21] LABS: ALBUMIN 2.8 gm/dL (3.5-5.0); ANION GAP 11.6 (10.0-19.0); BLOOD UREA NITROGEN 19 mg/dL (6-24); CALCIUM 8.5 mg/dL (8.5-10.5); CHLORIDE 97 mMol/L (96-110); CO2 34 mMol/L (22-32); CREATININE 0.7 mg/dL (0.6-1.3); ESTIMATED GFR (MDRD EQUATION) > 60; PHOSPHORUS 3.8 mg/dL (2.5-4.9); POTASSIUM 3.6 mMol/L (3.7-5.1); SODIUM 139 mMol/L (135-145)
--- NOTE | 2017-03-07 14:40 | NUR ---
Introduced self and role of care management to patient's son in the room. Patient lives in [place] with his . Son says all the children are out of the house, but some live in [place]. Son says patient is going back to surgery. Told them will talk more with them regarding discharge plans next week. Will follow.
--- NOTE | 2017-03-07 15:11 | NUR ---
Significant Event: Patient oriented to self and that he is in hospital. Patient appropriate most of the time in conversation. At times patient will make an inappropriate statement within conversation. Patient has been restless most of shift. Dr Martell notified this AM. He decreased his steroids and Dr June started the delirium pathway. Patient has rested very little the last 24 hours. Attempted to decrease stimuli with monitoring the amount of visitors. Denies N/T. Follows commands. Moves everything spontaneously. VSS. Afib. 1+ genralized edema. Room air with sats in the mid 90s. LS clear and diminished. Voids per urinal. BS active X4. No BM this shift. Accuchecks ACHS with SSI. Decreased appetite. NPO as of now for OR later. Island barrier to back of head. Reinforced multiple times as patient removed it. L) AC PIV flushes with no complications. 1 assist. Family in room helps. [place] X2 for pain. Follow up: plan for ventriculostomy today at some point and then to ICU after
--- NOTE | 2017-03-08 04:37 | NUR ---
PT TO ICU FROM PACU AT 2034. RESTLESS/AGITATED PRIOR TO AND UPON ARRIVAL, IN BILAT WRIST RESTRAINTS. RESTRAINTS CONTINUED FOR SAFETY THIS SHIFT DUE TO ATTEMPTING TO REMOVE MEDICAL EQUIPMENT. AT THIS TIME, A/O X3, NEURO ASSESSMENTS PERFORMED IN SLOVENIAN WITH MINIMAL FAMILY ASSISTANCE. FAMILY PROVIDED WITH EDUCATION AND INITIAL NEURO ASSESSMENT UPON ARRIVAL TO UNIT PERFORMED WITH MARTII TRANSLATION. MOVES ALL EXTREMITIES WELL WITH GOOD STRENGTH, PERRL BRISKLY AT 2MM, SPEECH CLEAR AND LOGICAL. ICP TEENS MOST OF SHIFT AND VENTRIC OPENED X1 THIS SHIFT. REMAINS IN AFIB, HYPERTENSIVE UNTIL APPROX 299. PRN LABETALOL AND HYDRALAZINE GIVEN X1 DOSE EACH THIS SHIFT. SBP CURRENTLY 100S. AFEBRILE. ON 2LNC. TOLERATING PO INTAKE AT THIS TIME. NO BM THIS SHIFT. UOP 2054 ML PLUS ONE LARGE INCON. VOID. SURGICAL SITES REMAIN COVERED. SLIGHT SHADOWING TO VENTRIC/ICP SITE (MARKED). DRAINAGE FROM VENTRIC WAS S/S; TOTAL OF 10 ML DRAINED. MARCO ANTONIO DHALIWAL RN
--- NOTE | 2017-03-08 16:31 | NUR ---
Significant Events: Oriented x3, very restless and impulsive. Hi-low bed utilized and family at bedside. ICP/ventric remains to R) frontal, opened for patency. ICP<20 all shift. Remains in A fib, rates controlled, SBP stable. Room air with lungs clear throughout, diminished in the bases. ADA diet, appetite fair. Cardoso patent with adequate UOP. IVF d/c'd. Patient pulled IV out to L) AC, replaced with R) wrist Follow up: Continue
[2017-03-09 05:05] LABS: BASOPHIL % 0.2 %; HEMATOCRIT 40.8 % (37.0-53.0); IMMATURE GRANULOCYTE # 0.1 K/uL (0.0-0.3); LYMPHOCYTE # 0.8 K/uL (0.8-4.0); LYMPHOCYTE % 6.7 %; MCH 30.2 pg (27.0-34.0); MCHC 34.3 gm/dL (32.0-36.5); MCV 87.9 fl (83.0-98.0); MONOCYTE # 0.7 K/uL (0.0-1.0); MONOCYTE % 6.1 %; NEUTROPHIL # (ANC) 9.8 K/uL (1.4-9.0); NRBC % 0.2 /100WBC (0-0.00); PLATELET COUNT 271 K/uL (150-450); RBC 4.64 M/uL (4.00-6.00); RDW-CV 12.5 % (11.9-14.6); WBC 11.4 K/uL (4.0-11.0)
[2017-03-09 05:14] LABS: ALBUMIN 2.6 gm/dL (3.5-5.0); ANION GAP 11.6 (10.0-19.0); BLOOD UREA NITROGEN 18 mg/dL (6-24); CALCIUM 8.5 mg/dL (8.5-10.5); CHLORIDE 97 mMol/L (96-110); CO2 32 mMol/L (22-32); CREATININE 0.6 mg/dL (0.6-1.3); ESTIMATED GFR (MDRD EQUATION) > 60; PHOSPHORUS 3.6 mg/dL (2.5-4.9); POTASSIUM 3.6 mMol/L (3.7-5.1); SODIUM 137 mMol/L (135-145)
--- NOTE | 2017-03-09 06:56 | NUR ---
patient is awake alert will follow simple commands moves all extremities will reposition himself,sleeps on/off,restless and impulsive,trys to get out of bed sitter at bed side to prevent pulling on icp/ventric despite beeing restraint clear upper lungs sound diminished on the bases,on room air [id number]=08% follow up:continue to monitor patient's hemodynamic and neuro status closely.
--- NOTE | 2017-03-09 16:36 | NUR ---
Significant Events: Patient has increased confusion, d/t lack of sleep/possible acute delirium. Seroquel given x1. Patient finally resting this afternoon. Remains in Afib, SBP up to 170s, PRN Labetalol given. [place] given for pain. Continues on room air, lungs clear throughout. Cardoso patent. Continue to encourage minimal visitors Follow up: Possibly d/c ICP/Ventric tomorrow
[2017-03-10 04:46] LABS: BASOPHIL % 0.2 %; HEMATOCRIT 41.8 % (37.0-53.0); HEMOGLOBIN 14.2 g/dL (12.0-17.0); IMMATURE GRANULOCYTE # 0.1 K/uL (0.0-0.3); LYMPHOCYTE # 1.1 K/uL (0.8-4.0); LYMPHOCYTE % 9.1 %; MCV 88.4 fl (83.0-98.0); MONOCYTE # 0.9 K/uL (0.0-1.0); MONOCYTE % 7.5 %; MPV 9.5 fl (9.4-12.4); NEUTROPHIL # (ANC) 9.5 K/uL (1.4-9.0); NEUTROPHIL % 82.2 %; NRBC % 0 /100WBC (0-0.00); PLATELET COUNT 264 K/uL (150-450); RBC 4.73 M/uL (4.00-6.00); RDW-CV 12.3 % (11.9-14.6); WBC 11.5 K/uL (4.0-11.0)
[2017-03-10 05:02] LABS: ALBUMIN 2.5 gm/dL (3.5-5.0); ANION GAP 8.6 (10.0-19.0); BLOOD UREA NITROGEN 20 mg/dL (6-24); CALCIUM 8.2 mg/dL (8.5-10.5); CHLORIDE 97 mMol/L (96-110); CREATININE 0.6 mg/dL (0.6-1.3); ESTIMATED GFR (MDRD EQUATION) > 60; PHOSPHORUS 3.2 mg/dL (2.5-4.9); POTASSIUM 3.6 mMol/L (3.7-5.1); SODIUM 137 mMol/L (135-145)
[2017-03-10 05:03] LABS: CO2 35 mMol/L (22-32)
--- NOTE | 2017-03-10 05:11 | NUR ---
BENITA. Becomes agitated at times. Oriented x3. Continues in Afib with HR 70-100s. Labetolol given x1 for MAPs <175. Tmax of 100.0, Tmix 97.7. Continues on RA with 02 sats in upper 90s. BS active but no BM this shift. Follow up: shunt placement vs. pulling ICP ventric. Continue to monitor neuro status.
--- NOTE | 2017-03-10 12:53 | NUR ---
A - NUT F/U. ICP/VENTRIC PLACED. AGITATED @ TIMES. CONFUSED. DECREASED APPETITE. LABS: ACCUCHECK REAS->200, K+ 3.6, GLU 164, ALB 2.5, WBC 11.5. MEDS: LEVEMIR, SEROQUEL, SYNTHROID, SSI, KEPPRA, BOWEL/NAUSEA. DIET: DIABETIC. INTAKE: REF-100%. GLUCERNA BID. EST NEEDS: 6618-7337 KCAL, 96-129 G PRO. D - INADEQUATE NUTRIENT INTAKE R/T DECREASED APPETITE, MENTAL STATUS AEB INTAKE RECORD. I - GOAL FOR INTAKE 50-100% BY NEXT ASSESSMENT. WILL INCREASE GLUCERNA TO TID. M/E - WILL MONITOR INTAKE F/U IN 3-5 DAYS.
--- NOTE | 2017-03-10 19:31 | NUR ---
Significant Event:Patient continues to have ICP/Ventric in place, Dr Martell rounded later in shift and 15mls of renzo, cloudy with sediment fluid drained from ventric, patient oriented to place and person but confused to time, needs frequent reminders to not pull at ICP/Ventric dressing if hands can reach and restless in bed frequently, 1:1 sitter and family at bedside, pt remains in Afib, Norvasc dose increased by Dr Singh this AM as pt's BP still elevated at times, remains on Room Air, orourke to DD with adequate UOP, on diabetic diet with fair appetite, Dr Martell started antibiotics and ordered CSF culture, pt remained afebrile throughout shift Follow up:Continue to monitor for any changes
[2017-03-11 06:07] LABS: BASOPHIL % 0.1 %; EOSINOPHIL # 0.1 K/uL (0.0-0.5); EOSINOPHIL % 0.4 %; HEMATOCRIT 43.7 % (37.0-53.0); HEMOGLOBIN 14.8 g/dL (12.0-17.0); IMMATURE GRANULOCYTE # 0.1 K/uL (0.0-0.3); IMMATURE GRANULOCYTE % 0.8 %; LYMPHOCYTE # 2.1 K/uL (0.8-4.0); LYMPHOCYTE % 12.1 %; MCH 29.8 pg (27.0-34.0); MCHC 33.9 gm/dL (32.0-36.5); MCV 88.1 fl (83.0-98.0); MONOCYTE # 1.2 K/uL (0.0-1.0); MONOCYTE % 6.9 %; NEUTROPHIL # (ANC) 13.7 K/uL (1.4-9.0); NEUTROPHIL % 79.7 %; NRBC % 0 /100WBC (0-0.00); PLATELET COUNT 268 K/uL (150-450); RBC 4.96 M/uL (4.00-6.00); RDW-CV 12.5 % (11.9-14.6)
[2017-03-11 06:09] LABS: WBC 17.1 K/uL (4.0-11.0)
[2017-03-11 06:25] LABS: ANION GAP 11.5 (10.0-19.0); BLOOD UREA NITROGEN 14 mg/dL (6-24); CALCIUM 7.8 mg/dL (8.5-10.5); CHLORIDE 93 mMol/L (96-110); CO2 32 mMol/L (22-32); CREATININE 0.5 mg/dL (0.6-1.3); ESTIMATED GFR (MDRD EQUATION) > 60; MAGNESIUM 1.9 mg/dL (1.8-2.6); POTASSIUM 3.5 mMol/L (3.7-5.1); SODIUM 133 mMol/L (135-145)
--- NOTE | 2017-03-11 07:14 | NUR ---
Significant Event: Pt continues to inconsistent with neuro assessments. He always knows he is, but at times doesn't know where he is or month or year. Pt always follows commands. He continues to move all extremities x4. ICP's mostly stable, opened ventric x2. [place] given x1 this am, for headache. No prn htn medications given. Frequent hiccups. Family at bedside. 1:1 TRAVEL COORDINATOR at bedside for ventric safety. Follow up:
--- NOTE | 2017-03-11 17:21 | NUR ---
Significant Event: Patient A/O to self et place only. 1:1 with staff d/t impulsiveness et forgetfulness. Nick mitten restraints. Low bed with mats. Neuro checks q4hrs. PERRLA, follows commands. ICP's <20 this shift, did not open. CSF drains clear, slightly renzo. PRN Morphine x2 et 1 tab [place] x1 for c/o headache rated 8. Patient sedated et occ difficult to arouse after Morphine admin. Tmax 100.0. Continues with IV Rocephin et Vanco, started Praziquantel. Tachy at times, SBP's 110s-140s, remains in Afib. Cardoso patent, drains adequate amounts of clear yellow. Mod soft BM x2 today. ADA diet, ate 25-50% of meals, family fed patient. Follow up: Monitor ICP's
--- NOTE | 2017-03-11 17:26 | NUR ---
Stopped by patient's room earlier today and family member sleeping in chair and patient sleeping and has 1:1 sitter. Asked by staff to come and talk to family at their request. gets their oldest son to act as software support analyst. is wondering about applying for medicaid and would like assistance. Told them I will contact Bonita with [employer] in the a.m. to meet with them. Told them she can assist them with the process and she speaks palestinian. Explained to them I am not sure if he will qualify at this time since he has insurance and his half-way outcome is not known at this time. Told them sometimes patient's have to apply several times before they qualify, but will have Bonita come and work with them. Told them I have been working with his insurance and they have been approving his stay. Explained to them I will work with them on discharge plans and uncertain what his needs will be but will probably need skilled care or inpt. therapy services. They voice understanding. Will follow.
[2017-03-12 04:24] LABS: BASOPHIL % 0.2 %; HEMATOCRIT 41.9 % (37.0-53.0); HEMOGLOBIN 14.6 g/dL (12.0-17.0); IMMATURE GRANULOCYTE # 0.1 K/uL (0.0-0.3); IMMATURE GRANULOCYTE % 0.9 %; LYMPHOCYTE # 0.7 K/uL (0.8-4.0); LYMPHOCYTE % 5.5 %; MCH 30.3 pg (27.0-34.0); MCHC 34.8 gm/dL (32.0-36.5); MCV 86.9 fl (83.0-98.0); MONOCYTE # 0.3 K/uL (0.0-1.0); MONOCYTE % 2.4 %; MPV 9.9 fl (9.4-12.4); NEUTROPHIL # (ANC) 11.4 K/uL (1.4-9.0); NRBC % 0 /100WBC (0-0.00); PLATELET COUNT 259 K/uL (150-450); RBC 4.82 M/uL (4.00-6.00); RDW-CV 12.5 % (11.9-14.6); WBC 12.5 K/uL (4.0-11.0)
[2017-03-12 04:39] LABS: ANION GAP 12.1 (10.0-19.0); BLOOD UREA NITROGEN 17 mg/dL (6-24); CHLORIDE 95 mMol/L (96-110); CO2 28 mMol/L (22-32); CREATININE 0.6 mg/dL (0.6-1.3); ESTIMATED GFR (MDRD EQUATION) > 60; MAGNESIUM 2.1 mg/dL (1.8-2.6); POTASSIUM 4.1 mMol/L (3.7-5.1); SODIUM 131 mMol/L (135-145)
--- NOTE | 2017-03-12 05:53 | NUR ---
patient is alert will follow simple commands,knows that he is in [facility] ([facility]) and states that it is 2017,but forgetful,will become restlessvery easily will try to get out of bed despite education and instructions,sitter at bedside to prevent him from pulling on icp/ventric ,clear upper lungs sound ,diminished on the bases,on room air [id number]=14% ,abd is soft active bowel sounds,one bowel movement,tolerate food with no problems. follow up:continue to monitor patient's hemodynamic and neuro status closely CT head at 0800.
--- NOTE | 2017-03-12 10:30 | NUR ---
Called and spoke with Bonita with [employer] and she will contact patient's to set up a time to meet with her. Will follow.
--- NOTE | 2017-03-12 18:51 | NUR ---
Significant Event: Patient A/O to self et place only. Follows commands yet is impulsive, james wrist restraints, low bed with mats et 1:1. ICP's <20 this shift. Continues to be in Afib, SPB's 80-90s at times when up in chair. C/O headache, Morphine et [place] given x1. ADA diet, 75% of meals eaten with assistance. Family at bedside, helps with cares et treanslating as patient is eritrean speaking only. CT without contrast performed this morning, air present in ventricles per Dr Martell, orders for ICP ventric to not be opened at this time.
[2017-03-13 05:12] LABS: HEMOGLOBIN 13.7 g/dL (12.0-17.0); MCH 29.9 pg (27.0-34.0); MCHC 35.1 gm/dL (32.0-36.5); MCV 85.2 fl (83.0-98.0); MPV 10.2 fl (9.4-12.4); PLATELET COUNT 290 K/uL (150-450); RBC 4.58 M/uL (4.00-6.00); RDW-CV 12.6 % (11.9-14.6)
[2017-03-13 05:13] LABS: WBC 22.4 K/uL (4.0-11.0)
[2017-03-13 05:28] LABS: ANION GAP 17.6 (10.0-19.0); CALCIUM 7.7 mg/dL (8.5-10.5); MAGNESIUM 2.2 mg/dL (1.8-2.6); POTASSIUM 3.6 mMol/L (3.7-5.1)
[2017-03-13 05:29] LABS: CREATININE 1.3 mg/dL (0.6-1.3)
[2017-03-13 06:07] LABS: ABSOLUTE NEUTROPHIL CT (ANC) 20.8 K/uL (1.4-9.0); BANDED NEUTROPHIL # 1.3 K/uL (0.0-0.1); BANDED NEUTROPHILS % 6 %; LYMPHOCYTE # 0.9 K/uL (0.8-4.0); LYMPHOCYTE % 4 %; MONOCYTE # 0.7 K/uL (0.0-1.0); SEGMENTED NEUTROPHIL # 19.5 K/uL (1.4-9.0); SEGMENTED NEUTROPHIL % 87 %
--- NOTE | 2017-03-13 06:23 | NUR ---
Significant Event: PATIENT AWAKENS TO VERBAL STIMULI, ORIENTED TO PERSON AND PLACE. DISORIENTED TO TIME. MUMBLED BUT CONVERSATIONAL SPEECH. TUVALUAN SPEAKING. ICP/VENTRIC REMOVED BY DR GOMEZ AT BEDSIDE. STAPLED VENTRIC SITE CLOSED. COVERED WITH DRESSING. AFIB WITH RATES UP TO 140'S OVERNIGHT. 1L NS BOLUS GIVEN OVER 1 HOUR. IVP CARDIZEM GIVEN THIS MORNING FOR CONTINUED RATES 120-140. AFEBRILE. CONTINUES ON ROOM AIR. PAULSON WITH ADEQUATE UOP. DR MONREAL UP TO SEE PATIENT, SUGGESTS KEEPING PAULSON FOR 5 DAYS. IMPROVING APPETITE. 1:1 FEEDING WITH FAMILY ASSIST. ADA DIET. REPORTS FEELING OF CONSTIPATION. PRN DULCOLAX SUPPOSITORY GIVEN WITH NO RESULT. PIV X 2. NS AT 50ML/HR. PENELOPE RDZ UP TO SEE PT. WILL FOLLOW UP IN 1 WEEK. Follow up: CONTINUE TO MONITOR NEURO STATUS
--- NOTE | 2017-03-13 11:02 | NUR ---
A - NUT F/U. ICP/VENTRIC DC'D. 1:1 @ MEALS. LETHARGIC TODAY. LABS: ACCUCHECK REAS->300, NA 134, K+ 3.6, GLU 307, BUN/CR 33/1.3, WBC 22.4. MEDS: LEVEMIR, IVF, KEPPRA, PREDNISONE, ROCEPHIN, SEROQUEL, SYNTHROID, SSI, BOWEL/NAUSEA. DIET: DIABETIC. INTAKE: 25-75% GLUCERNA TID - DRINKING. NEEDS: 6948-5139 KCAL, 96-129 G PRO. D - INADEQUATE NUTRIENT INTAKE R/T DECREASED APPETITE, LETHARGY AEB INTAKE RECORD. I - GOAL FOR INTAKE 50-75% BY NEXT ASSESSMENT. WILL CONTINUE GLUCERNA TID M/E - WILL MONITOR INTAKE. F/U IN 5-6 DAYS.
[2017-03-13 11:20] LABS: BILIRUBIN URINE NEGATIVE (NEGATIVE); BLOOD URINE 250 /UL (NEGATIVE); COLOR URINE YELLOW (YELLOW); GLUCOSE URINE 1000 mg/dL (NEGATIVE); KETONE URINE NEGATIVE (NEGATIVE); LEUKOCYTES URINE 100 /UL (NEGATIVE); NITRITE URINE NEGATIVE (NEGATIVE); PROTEIN URINE 100 mg/dL (NEGATIVE); TURBIDITY URINE 3+ (CLEAR); UROBILINOGEN URINE NORMAL (NORMAL)
[2017-03-13 11:34] LABS: RBC URINE 50-100 #/HPF (NEGATIVE)
[2017-03-13 11:35] LABS: BACTERIA URINE MANY (NEGATIVE); HYALINE CAST URINE 0-2 #/LPF (NEGATIVE)
--- NOTE | 2017-03-13 14:00 | NUR ---
Significant Event:Alert to self, disoriented to situation, time, place. Follows commands with multiple cues, arouses with sternal rub, very drowsy. Takes meds one at a time, chews them inspite of direction not to chew, swallows with multiple cues. Understands Korean, prefers New Zealander, Sarah in use, family interprets at times and are in attendance at the bedside at all times. Attempted to stand with 3 assist, gait belt and walker today, unable to understand or follow directions, "I can stand by myself". Lifted transfers to chair and back to bed. HR 140's, then around 1000, went to the 80's. SBP 120's to 90's. Scant edema to lower extremeties. O2 sats > 90% on RA. Fed breakfast and cues to chew and swallow, ate 30% of breakfast and too sleepy at lunch time, so meal held. Orourke patent, some old blood at insertion. Dr Webb recommends orourke x 5 more days since sight of first blood. Inc of PiniOn today. Dressings in place to front of head and occiput. Reports no pain. Family updated at the bedside. Breakfast at 0700 and sips with meds at noon. Non contrast CT of head to check for air in ventricles. Follow up:OR @ 1700 if family agrees for TERRA COTTA MOLD MAKER shunt?
[2017-03-14 05:29] LABS: BASOPHIL % 0.1 %; HEMATOCRIT 39.5 % (37.0-53.0); HEMOGLOBIN 13.4 g/dL (12.0-17.0); IMMATURE GRANULOCYTE # 0.2 K/uL (0.0-0.3); IMMATURE GRANULOCYTE % 0.8 %; LYMPHOCYTE # 1.2 K/uL (0.8-4.0); LYMPHOCYTE % 5.8 %; MCH 30.3 pg (27.0-34.0); MCHC 33.9 gm/dL (32.0-36.5); MCV 89.4 fl (83.0-98.0); MONOCYTE # 1.1 K/uL (0.0-1.0); MONOCYTE % 5.2 %; MPV 10.5 fl (9.4-12.4); NEUTROPHIL % 88.1 %; NRBC % 0 /100WBC (0-0.00); PLATELET COUNT 259 K/uL (150-450); RBC 4.42 M/uL (4.00-6.00); RDW-CV 13.2 % (11.9-14.6)
[2017-03-14 05:30] LABS: WBC 20.4 K/uL (4.0-11.0)
[2017-03-14 05:44] LABS: ANION GAP 10.8 (10.0-19.0); BLOOD UREA NITROGEN 26 mg/dL (6-24); CALCIUM 8.1 mg/dL (8.5-10.5); CHLORIDE 98 mMol/L (96-110); CO2 30 mMol/L (22-32); CREATININE 1.2 mg/dL (0.6-1.3); ESTIMATED GFR (MDRD EQUATION) > 60; MAGNESIUM 2.2 mg/dL (1.8-2.6); POTASSIUM 3.8 mMol/L (3.7-5.1); SODIUM 135 mMol/L (135-145)
--- NOTE | 2017-03-14 06:47 | NUR ---
Significant Event: Throughout shift patient has become more alert and oriented to self. Sometimes knows he is in [place] and thinks it is May. Did c/o feet hurting earlier in the shift and later rated headache 8/10 and received 2 mg of IVP Morphine with relief noted. Unable to assess sensation. Moves spontaneously and follows commands. PERRL. Prefers to speak in Maldivian-MARTTI is on PCU if needed. Family at bedside at all times. Did not take PO medications last night d/t too drowsy and not consistently following commands at that time. Has since had 1 glass of water and jello with no complications. Bedrest with HOB >30 degrees. VSS. Afebrile. Titrated down to RA. Lungs clear and diminished. Has not been impulsive this shift. Have not had to place restraints back on patient. HR tachycardic at times. Trace edema to BLE. Cardoso in place draining yellow urine without complications. Bowel sounds active. No BM this shift. Island barrier C/D/I. IV infusing IVF at 50 mL/hr with no complications. Follow up: neuros Q2H, ACHS accucheks, alarms at all times, monitor HR
--- NOTE | 2017-03-14 17:40 | NUR ---
Significant Event: Alert and oriented to self. Neuro checks q2hr. Upper Sorbian speaking. Wrist restraints applied all shift. PRN Lopressor is sustained HR >100 for 2hr. PRN Labetalol is SPB >170. Lungs clear/dim on 2L O2. Janae, last BM 03/13. Dressings to R) posterior head and abdomen x3 from DIESEL LUBE TECH Shunt. IV to R) hand running NS @ 50ml/hr, L) hand SL. Dobhoff inserted this shift for PO meds. NPO. Follow up: Continue accu ACHS.
--- NOTE | 2017-03-15 02:32 | NUR ---
Transfer to NTU. VSS. Peruvian speaking only. Family at bedside to translate. Alert to self, place at times. Responds appropriately at times, other times speech is mumbling. Follows commands. Wrist restraints due to pulling at line, re orient patient frequently. Orourke in place, patient pulling on orourke multiple times throughout shift. NPO. Dobhoff in place at 60. No BM. Surgical incisions/dressing intact.
--- NOTE | 2017-03-15 05:32 | NUR ---
Significant Event: Patient transferred from ICU at 0225. Son and daughter in law at bedside. Patient responds and follows commands much better with son translating than with Martii. Alert to self. Will follow commands in all four extremities. Periods of drowsiness and being very restless. Bilateral wrist restraints remain on. A.fib with rates 80s-low 100s. On 1 liter oxygen. Cardoso. Left nare dobhoff. Island barrier dressings to head remain dry and intact. Dressings to abdomen x3 intact with small amount of shadow drainage. Right and left hand PIV. Bedrest with head of bed>30 Follow up: neurochecks q2hrs
--- NOTE | 2017-03-15 10:39 | NUR ---
A - CONSULT RECEIVED D/T TF RECS. DOBHOFF PLACED. A/O TO SELF. SEAT JOINER EVAL REPORTS POCKETING AND REC CLEAR LIQUIDS ONLY. HEEL COVERER SHUNT. 1+ EDEMA. LABS: ACCUCHECK WNL->300, GLU 226, BUN/CR 26/1.2, WBC 20.4. MEDS: LEVEMIR, IVF, KEPPRA, ROCEPHIN, SEROQUEL, SYNTHROID, SSI, BOWEL/NAUSEA. DIET: NPO. INTAKE WAS POOR. GLUCERNA TID. NEEDS: [id number] KCAL, 96-129 G PRO D - DIFFICULTY SWALLOWING R/T NEURO STATUS AEB SEAT JOINER EVAL, NEED FOR ENTERAL NUTRITION. I - GOAL FOR ENTERAL NUTRITION TOLERANCE. REC GLUCERNA 1.2 @ 80 ML/HR W/ 175 ML WATER Q6 HRS TO PROVIDE 2304 KCAL, 115 G PRO, 1546 ML FREE WATER (+FLUSH). M/E - WILL MONITOR TF F/U IN 2-3 DAYS.
--- NOTE | 2017-03-15 10:42 | NUR ---
CONSULT RECEIVED FOR RECS. REC GLUCERNA 1.2 @ 80 ML/HR W/ 175 ML WATER Q6 HRS.
[2017-03-15 10:47] LABS: BASOPHIL % 0.1 %; HEMATOCRIT 39.6 % (37.0-53.0); HEMOGLOBIN 13.5 g/dL (12.0-17.0); IMMATURE GRANULOCYTE # 0.2 K/uL (0.0-0.3); LYMPHOCYTE # 1.1 K/uL (0.8-4.0); LYMPHOCYTE % 5.1 %; MCH 30.5 pg (27.0-34.0); MCHC 34.1 gm/dL (32.0-36.5); MCV 89.6 fl (83.0-98.0); MONOCYTE # 1.3 K/uL (0.0-1.0); MONOCYTE % 5.9 %; NEUTROPHIL # (ANC) 19.6 K/uL (1.4-9.0); NEUTROPHIL % 87.9 %; NRBC % 0.1 /100WBC (0-0.00); PLATELET COUNT 219 K/uL (150-450); RBC 4.42 M/uL (4.00-6.00); RDW-CV 13.3 % (11.9-14.6)
[2017-03-15 10:48] LABS: WBC 22.3 K/uL (4.0-11.0)
[2017-03-15 11:53] LABS: BLOOD UREA NITROGEN 24 mg/dL (6-24); CALCIUM 8.1 mg/dL (8.5-10.5); CHLORIDE 101 mMol/L (96-110); CO2 26 mMol/L (22-32); CREATININE 1.1 mg/dL (0.6-1.3); ESTIMATED GFR (MDRD EQUATION) > 60; SODIUM 136 mMol/L (135-145)
[2017-03-15 11:55] LABS: ANION GAP 12.9 (10.0-19.0); MAGNESIUM 1.9 mg/dL (1.8-2.6); POTASSIUM 3.9 mMol/L (3.7-5.1)
--- NOTE | 2017-03-15 15:53 | NUR ---
Significant Event: Patient alert to self. Mumbles to self most of time. Family states that the patient does not really make sense sometimes when he talks. Speaks primarily Japanese, family translates. Sarah in room. Reports double vision. Pupils 3mm, brisk. Grasps strong and equal bilaterally. Not able to re-orient patient. Bilateral wrist restraints in place. Tele on- a fib. VSS, on 3L O2. PRN lopressor if patient's heart rate sustains >110 for 2 hours. Cardoso patent and draining renzo urine. NG to L) nare, going to be starting tube feeding- glucerna with goal rate of 80 mL/hr. 175 mL H2O flushes q 6 hours. Island drsg to forehead from past ICP/ventric site. Island drsg to R) posterior head from CONFIDENTIAL SECRETARY shunt insertion. Surgical incision to posterior neck, sutures present. 3 puncture sites to abdomen, gauze with tegaderm present. IV to R) hand, saline locked. IV to L) hand infusing NS at 50 mL with intermittent antibiotics. Family at bedside at all times. Needs continuing education to not get food or water to patient for right now. Follow up: VS q 4 hours. Neuro checks q 2 hours. NPO, AC/HS accucheks.
--- NOTE | 2017-03-16 05:30 | NUR ---
Libyan speaking only. Family at bedside. Soft wrist restraints. Alert to self. O2 @ 3ltr. NS @ 50. Cardizem gtt initiated d/t elevated HR. NG tube to left nare- feeding @ 80ml/hr. 175ml flushes Q4H. NPO. Janae patent. Accuchecks GLADYS. RAYMON in room.
[2017-03-16 08:21] LABS: ANION GAP 10.5 (10.0-19.0); CALCIUM 8.4 mg/dL (8.5-10.5); CREATININE 1.3 mg/dL (0.6-1.3); POTASSIUM 3.5 mMol/L (3.7-5.1)
[2017-03-16 12:17] LABS: HEMATOCRIT 40.8 % (37.0-53.0); HEMOGLOBIN 14.2 g/dL (12.0-17.0); MCH 30.3 pg (27.0-34.0); MCHC 34.8 gm/dL (32.0-36.5); MCV 87.2 fl (83.0-98.0); MPV 11.6 fl (9.4-12.4); PLATELET COUNT 221 K/uL (150-450); RBC 4.68 M/uL (4.00-6.00); RDW-CV 13.4 % (11.9-14.6)
[2017-03-16 12:18] LABS: WBC 28.9 K/uL (4.0-11.0)
[2017-03-16 13:01] LABS: ABSOLUTE NEUTROPHIL CT (ANC) 23.7 K/uL (1.4-9.0); LYMPHOCYTE # 2.6 K/uL (0.8-4.0); LYMPHOCYTE % 9 %; MONOCYTE # 2.6 K/uL (0.0-1.0); SEGMENTED NEUTROPHIL # 23.7 K/uL (1.4-9.0); SEGMENTED NEUTROPHIL % 82 %
--- NOTE | 2017-03-16 15:03 | NUR ---
Significant Event: Patient alert to self only. Wallisian speaking primarily but can understand some Djiboutian. Reports double vision. Pupils 3mm, brisk. Does not follow commands consistently. Bilateral wrist restraints in place. Tele on- a fib. Cardizem gtt per protocol, currently running at 5. On 2L O2 per nasal cannula. Cardoso patent and draining renoz urine. NG to L) nare feeding glucerna at 80 mL/hr with H20 flushes 100 mL q 6 hours. Island drsg to upper forehead from past ICP/ventric site. Island drsg to R) posterior head from TILE ERECTOR shunt placement. Surgical incision to posterior neck, sutures in place, open to air. 3 puncture sites to abdomen. Puncture site right above belly button leaking clear fluid, drsg changed x3 this morning. notified. Abdominal xray ordered to check placement of TILE ERECTOR shunt. IV to R) hand, saline locked. IV to L) hand infusing NS at TKO and cardizem gtt with intermittent antibiotics. Remind family to limit visitors. Follow up: Neuro checks q 2 hours. Hourly vitals. NPO with tube feeds. AC/HS accucheks. Continue education with family.
[2017-03-17 05:58] LABS: BASOPHIL # 0.1 K/uL (0.0-0.2); BASOPHIL % 0.2 %; HEMATOCRIT 38.8 % (37.0-53.0); HEMOGLOBIN 13.3 g/dL (12.0-17.0); IMMATURE GRANULOCYTE # 0.2 K/uL (0.0-0.3); IMMATURE GRANULOCYTE % 0.8 %; LYMPHOCYTE # 1.2 K/uL (0.8-4.0); MCHC 34.3 gm/dL (32.0-36.5); MCV 87.4 fl (83.0-98.0); MONOCYTE # 1.3 K/uL (0.0-1.0); MONOCYTE % 5.4 %; MPV 10.2 fl (9.4-12.4); NEUTROPHIL # (ANC) 21.9 K/uL (1.4-9.0); NEUTROPHIL % 88.6 %; NRBC % 0 /100WBC (0-0.00); PLATELET COUNT 221 K/uL (150-450); RBC 4.44 M/uL (4.00-6.00); RDW-CV 13.6 % (11.9-14.6)
--- NOTE | 2017-03-17 06:00 | NUR ---
Significant Event: Oriented to self first assessment with pupils equal and reactive 3.0. Upon second assessment patient became more drowsy and pupils became hippus. Physician came to assess patient and spoke with family. Physician also stapled abdominal incision due to increased drainage and placed tegaderm/gauze dressing. Will have a CT scan today and Mannitol administered. Neuro checks q2h. Most recent neuro check patient oriented to self and follows commands with upper and lower extremities. Pupils remained hippus throughout duration of shift. Continuous Cardizem drip at 5ml/hr through left wrist. 2-3L O2 NC. Meds crushed and given through dobhoff. ACHS accuchecks and s/s insulin administered. Patient speaks sami and RAYMON in the room. Family at bedside throughout entire night. Follow up: Possible shunt revision today
[2017-03-17 06:01] LABS: WBC 24.8 K/uL (4.0-11.0)
[2017-03-17 06:16] LABS: ANION GAP 8.4 (10.0-19.0); CALCIUM 8.8 mg/dL (8.5-10.5); CREATININE 1.4 mg/dL (0.6-1.3); MAGNESIUM 2.1 mg/dL (1.8-2.6); POTASSIUM 3.4 mMol/L (3.7-5.1)
--- NOTE | 2017-03-17 17:19 | NUR ---
Significant Event: alertness varies, at times does not arouse to verbal stimuli, at times arouses to verbal stimuli and at times opens eyes spontaneously. oriented to person and place. follows commands such as squeezing of hands with strength good. no pupil changes from wireless sales representative. 3 liters of oxygen decreased to 2 liters. repositions with lift sheet and 2-3 assist. patient pulled out nasogastric tube to left nare. dobhoff placed to right nare with orders to resume tube feedings and flushes. CT of abdomen negative with no further drainage noted from stapled surgical site to abdomen. VS Q 1 hour. neuro checks Q 2 hours. frequent oral cares with swabs. continues on cardizem drip at 5mg/hr. NACL at TKO. Power glide to right upper arm infusing cardizem and normal saline. orourke cath patent with yellow output. bilateral wrist restraints on. patient reaches for dobhoff as soon as restraints are loosened/removed. tele with chronic afib.
[2017-03-17 21:30] LABS: PCO2 60 mmHg (35-45)
[2017-03-17 21:38] LABS: BICARBONATE 44.7 mmol/L (18.0-23.0); PO2 46 mmHg (80-90)
[2017-03-17 22:10] LABS: PCO2 48 mmHg (35-45)
[2017-03-17 22:11] LABS: PO2 65 mmHg (80-90)
[2017-03-18 04:22] LABS: HEMATOCRIT 38.8 % (37.0-53.0); HEMOGLOBIN 13.1 g/dL (12.0-17.0); MCHC 33.8 gm/dL (32.0-36.5); MPV 10.5 fl (9.4-12.4); PLATELET COUNT 245 K/uL (150-450); RBC 4.36 M/uL (4.00-6.00); RDW-CV 13.4 % (11.9-14.6)
[2017-03-18 04:41] LABS: ANION GAP 9.9 (10.0-19.0); BLOOD UREA NITROGEN 29 mg/dL (6-24); CALCIUM 8.7 mg/dL (8.5-10.5); CHLORIDE 93 mMol/L (96-110); CREATININE 1.1 mg/dL (0.6-1.3); ESTIMATED GFR (MDRD EQUATION) > 60; POTASSIUM 3.9 mMol/L (3.7-5.1); SODIUM 135 mMol/L (135-145)
[2017-03-18 04:43] LABS: CO2 36 mMol/L (22-32)
[2017-03-18 05:14] LABS: ABSOLUTE NEUTROPHIL CT (ANC) 21.3 K/uL (1.4-9.0); BANDED NEUTROPHIL # 2.2 K/uL (0.0-0.1); BANDED NEUTROPHILS % 10 %; LYMPHOCYTE # 0.4 K/uL (0.8-4.0); LYMPHOCYTE % 2 %; MONOCYTE # 0.2 K/uL (0.0-1.0); SEGMENTED NEUTROPHIL # 19.1 K/uL (1.4-9.0); SEGMENTED NEUTROPHIL % 87 %
--- NOTE | 2017-03-18 07:31 | NUR ---
Significant Event: Oriented to person. Patient speaks kittitian and family at bedside to assist as well as RAYMON in the room. Follows commands at times. Most recent neuro assessments pupils equal and reactive 3.0 and no longer hippus. IV decadron started last night. Restraints in place to hands due to attempts of removing dobhoff and IV. Cardizem drip increased to 10.0 last night at approximately 0330. Tachycardia 90-115 and goal is 80's. Frequent repositioning. 2L O2 NC & cpap ordered to be started. Jevity through dobhoff at 80ml/hr and 175ml flushes q6h. Frequent oral cares. Patient is restless at times. Follow up:
--- NOTE | 2017-03-18 08:51 | NUR ---
A - NUTRITION F/U. GLU 225, BUN/LENS ASSISTANT 29/1.1, WBC 22.0. ADMIT WT IS 326#; DAILY WEIGHTS HAVE VARIED FROM 300-319#. PT W/ 1+ EDEMA. DIET: GLUCERNA 1.2 AT 80 ML/HR W/ 175 ML H20 Q 6 HRS. THIS MEETS PT NEEDS. A/O TO SELF. D - DIFFICULTY SWALLOWING R/T NEUROMUSCULAR DYSFUNCTION AEB NEED FOR EN. I - GOAL: TO MEET 100% OF NEEDS VIA EN. M/E - WILL CONT TO MONITOR EN. WILL F/U IN 2-4 DAYS.
[2017-03-18 14:24] LABS: BICARBONATE 41.2 mmol/L (18.0-23.0); PCO2 41 mmHg (35-45)
[2017-03-18 14:39] LABS: PO2 83 mmHg (80-90)
--- NOTE | 2017-03-18 18:01 | NUR ---
Significant Event:PT STARTED OFF SHIFT. BEING AAOX3. DID STILL HAVE SOME CONFUSION BUT WAS CONVERSATIONAL WITH FAMILY. AROUND 11 PATIENT BEGAN TO DECLINE IN LOC AND CPAP WAS PLACED BACK ON SO PATIENT COULD SLEEP. SHORTLY AFTER PATIENT BEGAN HAVING APNIC EPISODES. BIPAP WAS THEN USED AROUND 1310. DIAMOX GIVEN. ABG DONE. MRI OF HEAD DONE. STILL ALERT TO SELF BUT NOT MUCH CHANGED. LUNG SOUNDS CLEAR AND DIMINISHED. DOBHOFF CLOG OFF. ORDER TO NOT REINSERT YET. DRSG TO HEAD AND ABDOMEN. PAULSON IN PLACE. HAD 4 LOOSE STOOLS. HELD STOOL SOFTNER. ON CARDIZEM GTT. Follow up:NEURO
--- NOTE | 2017-03-19 05:36 | NUR ---
Significant Event: Oriented to person and PERRLA 3.0. Follows commands at times. Cardizem drip increased to 10ml/hr this morning at 0403. Patient on bipap which is titrated by respiratory. NG tube placed yesterday and receives Jevity 80ml/hr continuous with 175ml flush q6h. Incontinent of stools and colace was not given last night. 1:1 due to having restraints and bipap. RAYMON in the room and family assists with uruguayan communication. Cardoso catheter patent. Denies pain. Follow up:
[2017-03-19 05:56] LABS: BICARBONATE 33.5 mmol/L (18.0-23.0); PCO2 41 mmHg (35-45); PO2 98 mmHg (80-90)
--- NOTE | 2017-03-19 13:35 | NUR ---
Significant Event:PT HAS BEEN ALERT TO PERSON, PLACE/TOWN AND YEAR THIS SHIFT. THE DAY HAS GONE ON, HE BECOMES MORE DROWSY. STILL AWAKES TO QUESTION BUT FALLS RIGHT BACK TO SLEEP. FOLLOWS COMMANDS. ON BIPAP STILL. WITH APNIC EPISODES STILL NOTED. WILL DROP DOWN TO 84% BUT COMES BACK UP TO MID TO UPPER 90'S. NG TO LEFT NARE. TF RUNNING. TOLERATING WELL. DRSGS TO HEAD AND ABDOMEN. CARDIZEM DRIP OFF AT 1030. ON PO CARDIZEM. HR 70-90S. ACHS ACCU CHECKS. BILATERAL WRIST RESTRAINTS STILL. CONTINUE TO TRY AND PULL AT LINES. FAMILY AT BEDSIDE. Follow up:LOC. RR AND LUNG SOUNDS
[2017-03-19 15:31] LABS: ANION GAP 12.5 (10.0-19.0); BLOOD UREA NITROGEN 33 mg/dL (6-24); CALCIUM 8.8 mg/dL (8.5-10.5); CHLORIDE 96 mMol/L (96-110); CO2 29 mMol/L (22-32); CREATININE 1.2 mg/dL (0.6-1.3); ESTIMATED GFR (MDRD EQUATION) > 60; POTASSIUM 3.5 mMol/L (3.7-5.1); SODIUM 134 mMol/L (135-145)
[2017-03-20 04:37] LABS: HEMATOCRIT 40.7 % (37.0-53.0); HEMOGLOBIN 13.9 g/dL (12.0-17.0); MCHC 34.2 gm/dL (32.0-36.5); MCV 87.9 fl (83.0-98.0); MPV 10.1 fl (9.4-12.4); RBC 4.63 M/uL (4.00-6.00); RDW-CV 13.3 % (11.9-14.6)
[2017-03-20 04:42] LABS: PLATELET COUNT 315 K/uL (150-450); WBC 16.4 K/uL (4.0-11.0)
[2017-03-20 04:48] LABS: ALBUMIN 2.1 gm/dL (3.5-5.0); ANION GAP 12.8 (10.0-19.0); CALCIUM 9.1 mg/dL (8.5-10.5); CREATININE 1.3 mg/dL (0.6-1.3); PHOSPHORUS 3.8 mg/dL (2.5-4.9); POTASSIUM 3.8 mMol/L (3.7-5.1)
--- NOTE | 2017-03-20 05:05 | NUR ---
Significant Event: The patient is Alert and Oriented x3, forgetful at times. Denies Numbness and Tingling. Moves all extremities spontaneously and to command. VSS. On bipap. Accu checks ACHS. NG tube in the Left Nare. Tubefeed running at 80ml/hr, with Q6H water flushes (175ml). Complaints of a headache gave [place] at 2157 and Tylenol at 0133. 1:1 Sitter due to bipap. Family at the bedside. Chinese speaking only. Midline IV to the Right upper arm saline locked. A-fib, on PO cardizem. Dressing to his head x2. Dressings to abdomen dry and intact. [place] to Belly button. Cardoso draining yellow urine. Bilateral wrist Restraints. Incontinent of stool. Follow up:
[2017-03-20 05:37] LABS: BICARBONATE 29.8 mmol/L (18.0-23.0); PCO2 40 mmHg (35-45); PO2 90 mmHg (80-90)
[2017-03-20 05:44] LABS: ABSOLUTE NEUTROPHIL CT (ANC) 15.4 K/uL (1.4-9.0); BANDED NEUTROPHIL # 1.3 K/uL (0.0-0.1); BANDED NEUTROPHILS % 8 %; LYMPHOCYTE # 0.7 K/uL (0.8-4.0); LYMPHOCYTE % 4 %; MONOCYTE # 0.3 K/uL (0.0-1.0); SEGMENTED NEUTROPHIL # 14.1 K/uL (1.4-9.0); SEGMENTED NEUTROPHIL % 86 %
--- NOTE | 2017-03-20 12:30 | NUR ---
Patient is 1:1 [address] BIPAP on. Dr. Martell would like patient to go to inpatient rehab. Patient still has restraints at times so not able to make referral to skilled facilities. Will follow.
--- NOTE | 2017-03-20 19:46 | NUR ---
Significant Event: Patient alert and oriented x3. However, needs very frequent reminders not to pull at things. Very forgetful. Overall neuro status much improved. Primarily lithuanian speaking, family translates for patient. Pupils 3mm, brisk. Follows commands. Bilateral wrist restraints in place due to patient pulling at tubes. Patient did discontinue his own NG this shift. 1:1 sitter when patient on BIPAP. Tele on- a fib. Patient on BIPAP when sleeping for severe sleep apnea. Orourke patent and draining yellow urine, did have bloody urine with clots when got up with therapy. Irrigated orourke, no clots after that. Incontinent loose stools throughout shift, brief on. Patient pulled out NG to L) nare. Was not replaced per MD order. Swallow eval showed he could have regular diet with regular liquids. Island drsg to top of forehead from prior ICP/ventric site. Island drsg to R) posterior head from HEATING FIXTURE TENDER shunt placement. Surgical incision to back of neck/head, sutures in place. 3 puncture sites to abdomen from HEATING FIXTURE TENDER shunt placement, 2 covered, belly button incision open to air with kapil. Midline IV to R) upper arm, saline locked. Family at bedside. Follow up: VS q 4 hours. Neuro checks q 2 hours. Up with therapy. Regular diet. AC/HS accucheks.
--- NOTE | 2017-03-21 04:12 | NUR ---
Significant Event: Pt A&Ox3, but is forgetful. Pt will lash out and try to hit staff at times. Pt is Vietnamese-speaking only. Has james wrist restraints d/t pt pulling at everything. Pt is to wear BiPAP with 1L bled in while sleeping. Has orourke with good output, inc of stool. HR Afib. 1:1 feeder, family mentions pills in pudding or 1 @ a time. Reg diet, accuchecks ACHS. Does have BP treat orders if SBP >170. Have had to give Labetolol twice on shift. SUSANA Midline, SL. If pt is sleeping, he is to have a sitter. Neuro checks q2h. Follow up: Continue plan of care. Family can be overwhelming at times.
--- NOTE | 2017-03-21 12:54 | NUR ---
A - NUT F/U. FORGETFUL. PT PULLED NG OUT - MD ORDERED NOT TO REPLACE. HEAD LOADER SHUNT. 1+ EDEMA. 1:1 @ MEALS. 03/04 WT 309#, 03/21 284# - DOWN 25# (8%). BMI 45.9. SUSPECT WT LOSS PARTLY D/T CHANGE IN EDEDMA. NO NFPE DONE D/T PT PULLING AT LINES, IN RESTRAINTS AT TIMES. LABS: ACCUCHECK REAS->200, GLU 222, BUN/CR 35/1.3, ALB 2.1, WBC 16.4. MEDS: LEVEMIR, DECADRON, KEPPRA, SEROQUEL, SYNTHROID, SSI, BOWEL/NAUSEA. DIET: REG. NO INTAKE RECORD YET SINCE DIET STARTED. NEEDS: 1179-2094 KCAL, 96-129 G PRO D - INADEQUATE ORAL NUTRIENT INTAKE R/T RECENT NPO STATUS AEB RECENT ENTERAL NUTRITION, INTAKE RECORD. I - GOAL FOR INTAKE > 50% BY NEXT ASSESSMENT. WILL ADD GLUCERNA TID TO INC NUTRIENT INTAKE. M/E - WILL MONITOR INTAKE. F/U IN 3-5 DAYS.
--- NOTE | 2017-03-21 15:41 | NUR ---
Diabetes Center note: 1530 Consult received in Diabetes center. After reviewing chart and blood sugars, CDE wrote recommendation to increase Levemir insulin and continue to evaluate every 2 days to continue increasing doses of insulin to acheive proper control of blood sugars. Due to steroid use, will need to continue to evaluate blood sugars on regular bases. There was no family in the room at the time of this visit, patient remains forgetful and is not a candidate for education at this time.
--- NOTE | 2017-03-21 16:29 | NUR ---
Significant Event: Patient is alert and oriented x3. Forgetful when sleepy. q2h neurochecks. Follows commands. Frontal DAWN with movement- resolves quickly when settled- Dr. Jayshree HUTTON. Drowsy at times. Lungs are diminished in the bases. BiPAP on at all times when PT is sleeping r/t apneic periods. Sitter needs to be in room when BiPAP is on. Incision to rigth posterior head, back of head- incisions open to air. Puncture sites x3- CONTRACT SERVICEMAN. Bowel sounds are hypoactive. Loose BM today- incontinent of stool. Patient does not speak latvian. Labetalol available if SBP >170. Pleasant and cooperative with cares. Follow up:
--- NOTE | 2017-03-22 07:13 | NUR ---
Significant Event: Patient alert to self, thinks he is in [place]. Sometimes doesn't want to answer questions. Has been easily arousable. Moves all extremities spontaneously and to command, very weak. Stated he felt fatigued at the beginning of shift. HTN at times. Need to keep SBP below 170, PRN labetalol. Blood glucose was 71, brought back up to WNL but held Levemir dose this shift. Sergio and stitches to head all intact. Bowel sounds active. Lungs clear and dim. Bipap worn last night while sleeping. Will help with repositioning. PT to shower today. Follow up: q2 neuros, son at bedside very helpful-interprets for patient.
--- NOTE | 2017-03-22 19:22 | NUR ---
Significant Event: Alert and oriented X 3. Room air. Bipap at night due to apnea. SBP 158, 148 and 125. HR 80's and 90's. 2 assist to bedside commode and recliner, gait belt and walker. Midline power glide to right upper arm, flushes well with good blood return. Complaints of sore throat. 2 kapil above umbilicus. Steri strips upper abdomen. [place] to forehead. Sutures frontal. Sutures parietal and slightly edematous. Pleasant and cooperative with cares. Follow up:
--- NOTE | 2017-03-23 05:26 | NUR ---
Significant Event: Patient is alert and oriented x3. Is forgetful of place at times. Follows commands. VSS. Strong upper and moderate strength lower. PERRLA. Afib- keep SBP less than 170. Room air-does need to have BI-pap on when sleeping. Room air. Diabetic diet-accu checks ACHS-mild sliding scale. Bowels are active x4-last BM /. 2A gb/walker. BSC. R) upper midline sl'd flushes well. Multiple surgical incisions-open to air- sutures and kapil. Does not speak pashto-family at bedside. Follow up: Working on either skilled vs inpat rehab vs. LTAC.
--- NOTE | 2017-03-23 16:01 | NUR ---
ULTRA HIGH FALL RISK Significant Event: Alert/forgetful, cooperative with most commands, impulsive, norco x1 this morning, ambulates in [place]ich[place] to nurses station w/PT. lots of family @ bedside. 1:1 feeder, fair appetite. NO IV site, incontinent, HI/LO bed, 2 assist/pivot/BSC. non-Samoan speaking. Follow up: monitor for safety - 1:1 with bipap at night.
--- NOTE | 2017-03-24 05:02 | NUR ---
Significant Event: PATIENT IS [id number] AND RESTLESS. FOLLOWED MOST COMMANDS. VSS. PERRLA. C/O DAWN. BECAME AGITATED THIS SHIFT-HALDOL GIVEN X1. AFIB. ROOM AIR-DID NOT WEAR BI-PAP AT ALL THIS SHIFT. DIABETIC DIET-ACCU CHECKS ACHS-MILD SLIDING SCALE. LAST BM-03/21- BOWELS ARE ACTIVE X4. 2A GB WALKER. INCISIONS OPEN TO AIR. FAMILY AT BEDSIDE. Follow up: MONITOR.
--- NOTE | 2017-03-24 08:31 | NUR ---
Diabetes consult: Patient with blood sugars well controlled on current insulin regimen. FBS at 134 this a.m. Blood sugars over the past 2 days have ranged from 92-186. Recommend to continue current insulin regimen. Will continue to follow and evaluate trends.
[2017-03-24 09:45] LABS: ALBUMIN 2.3 gm/dL (3.5-5.0); ANION GAP 17.6 (10.0-19.0); CALCIUM 8.1 mg/dL (8.5-10.5); CREATININE 1.7 mg/dL (0.6-1.3); PHOSPHORUS 3.2 mg/dL (2.5-4.9); POTASSIUM 3.6 mMol/L (3.7-5.1)
--- NOTE | 2017-03-24 14:18 | NUR ---
A - FORGETFUL/RESTRLESS. 1:1 @ MEALS. A/O TO SELF. 1+ EDEMA. LABS: ACCUCHECK WNL-REAS, K+ 3.6, GLU 180, BUN/CR 51/1.7, ALB 2.3. MEDS: LEVEMIR, SSI, DECADRON, KEPPRA, SYNTHROID, BOWEL/NAUSEA. DIET: DIABETIC. INTAKE: BITES-75% AVG ~23% GLUCERNA TID. NEEDS: 1776-0385 KCAL, 96-129 G PRO D - INADEQUATE NUTRIENT INTAKE R/T DECREASED APPETITE AEB INTAKE RECORD. I - GOAL FOR INTAKE > 50% BY NEXT ASSESSMENT. WILL ADD ENSURE PUDDING @ L&D. IF INTAKE DOES NOT IMPROVE PT WOULD BENEFIT FROM DOBHOFF BEING RE-INSERTED. M/E - WILL MONITOR POC, INTAKE F/U IN 2-4 DAYS.
--- NOTE | 2017-03-24 19:27 | NUR ---
ULTRA HIGH FALL RISK Significant Event: Alert to self, confused/restless/aggitated, follows commands at times, NO IV access, sutures/kapil SHANTI to multiple head incisions, kapil D/I to umbilicus - 2 assist/gait belt/walker unable to sleep, dozes at 5 minute invervals, then awake, norco x1, Haldol x1, started on Delirium pathway - zyprexa IM x2, notified of no response to medication, incontinent at times, ambulated x2 in nicholson, up in chair multiple times, poor PO intake due to sore mouth/throat, magic mouthwash given, pulls of Tele - 1:1 sitter at bedside, Hi/Lo bed, Follow up: at bedside at 1920 accuchecks,
[2017-03-24 21:02] LABS: BASOPHIL % 0.1 %; HEMATOCRIT 43.1 % (37.0-53.0); HEMOGLOBIN 14.8 g/dL (12.0-17.0); IMMATURE GRANULOCYTE # 0.1 K/uL (0.0-0.3); IMMATURE GRANULOCYTE % 0.7 %; LYMPHOCYTE # 0.7 K/uL (0.8-4.0); LYMPHOCYTE % 5.2 %; MCHC 34.3 gm/dL (32.0-36.5); MCV 87.4 fl (83.0-98.0); MONOCYTE # 0.6 K/uL (0.0-1.0); MONOCYTE % 4.3 %; MPV 10.3 fl (9.4-12.4); NEUTROPHIL # (ANC) 12.4 K/uL (1.4-9.0); NEUTROPHIL % 89.7 %; NRBC % 0 /100WBC (0-0.00); RBC 4.93 M/uL (4.00-6.00); RDW-CV 13.6 % (11.9-14.6); WBC 13.8 K/uL (4.0-11.0)
[2017-03-24 21:03] LABS: PLATELET COUNT 398 K/uL (150-450)
[2017-03-24 21:25] LABS: ALBUMIN 2.6 gm/dL (3.5-5.0); ANION GAP 17.8 (10.0-19.0); CALCIUM 8.3 mg/dL (8.5-10.5); POTASSIUM 3.8 mMol/L (3.7-5.1); TOTAL PROTEIN 6.4 g/dL (6.0-8.4)
[2017-03-24 21:27] LABS: CREATININE 2.8 mg/dL (0.6-1.3)
[2017-03-24 21:28] LABS: TOTAL BILIRUBIN 0.6 mg/dL (0.0-1.5)
--- NOTE | 2017-03-25 04:31 | NUR ---
Significant Event: Patient alert - refused to answer orientation questions. Agitated/restless. moves extremities spontaneously. restraints re-initiated this shift due to patient needing IV access and pulling on tubes. multiple IVs attemps- difficulty keeping patient from jerking when poked. Tele re-intiated when restraints were re-initiated. in afib. heart rate in 80s -90s accept when agitated then in 100s-110s. patient given haldol 5mg x2 for agitation. got 30 mins of sleep. given ativan 1mg - got 45 mins of sleep. then continued to be restless/agitated. did not wear home cpap this shift - SATs ranged from 98-100% while sleeping without dropping. VSS on room air. Hypertensive. Diabetic diet - ACHS accuchecks. IV to RA infusing NS at 75ml/hr. had incontient x2 voids this shift. in 1:1. Incisions to head and umbilicus - open to air and kapil/sutures removed this shift. up 2 assist gait belt and walker. takes meds whole with water. family at bedside. ct scan tomorrow. EKG in am. 20meq of K given this shift. Follow up:
[2017-03-25 04:59] LABS: ANION GAP 15.7 (10.0-19.0); CALCIUM 8.3 mg/dL (8.5-10.5); CREATININE 2.8 mg/dL (0.6-1.3); POTASSIUM 3.7 mMol/L (3.7-5.1)
--- NOTE | 2017-03-25 10:12 | NUR ---
Diabetes consult: Blood sugars are well controlled on the current insulin regimen. Fasting blood sugar 113 this am. Will continue to monitor.
[2017-03-25 12:38] LABS: BILIRUBIN URINE NEGATIVE (NEGATIVE); BLOOD URINE 250 /UL (NEGATIVE); COLOR URINE YELLOW (YELLOW); GLUCOSE URINE NEGATIVE (NEGATIVE); KETONE URINE NEGATIVE (NEGATIVE); LEUKOCYTES URINE 100 /UL (NEGATIVE); NITRITE URINE POSITIVE (NEGATIVE); PROTEIN URINE 30 mg/dL (NEGATIVE); SPEC GRAVITY URINE 1.015 (1.003-1.035); TURBIDITY URINE 2+ (CLEAR); UROBILINOGEN URINE NORMAL (NORMAL)
[2017-03-25 12:44] LABS: RBC URINE FULL FIELD #/HPF (NEGATIVE); WBC URINE 20-50 #/HPF (NEGATIVE)
[2017-03-25 12:45] LABS: BACTERIA URINE MANY (NEGATIVE); EPITHELIAL URINE 0-2 #/HPF (NEGATIVE); HYALINE CAST URINE 0-2 #/LPF (NEGATIVE); MUCUS URINE 1+ (NEGATIVE)
--- NOTE | 2017-03-25 19:40 | NUR ---
Significant Event: a/o to name and year of . follows commands. moves all extremities on command/spontaneously. Luxembourger interpretation per in house manager fine dining and Marti. HUTTON. CPAP when sleeping regardless of oxygen level, unless it agitated him then may leave off. orourke cath inserted this shift for accurate I & O per Dr. Gutierrez Dog Day Care Attendant. triple lumen left subclavian inserted by dr. bowie due to IV access needed. Peripheral IV to right anticubital discontinued due to leaking. PICC nurse assessed for powerglide placement and determined veins too small and too deep. takes only sips and bites for meals. takes meds whole/crushed in pudding. 2 person assist with transfers. 1 liter of NACL bolused at 1257. 1 liter of sodium bicarb bolused at 1525. sodium bicarb now infusing at 125ml/hr with orders to infuse x 20 hours. accuchecks ac/hs.
[2017-03-26 04:27] LABS: ALBUMIN 2.1 gm/dL (3.5-5.0); ANION GAP 11.3 (10.0-19.0); CALCIUM 7.6 mg/dL (8.5-10.5); CREATININE 1.5 mg/dL (0.6-1.3); PHOSPHORUS 2.6 mg/dL (2.5-4.9); POTASSIUM 3.3 mMol/L (3.7-5.1)
--- NOTE | 2017-03-26 05:35 | NUR ---
Significant Event: PATIENT IS ALERT TO SELF. RESTLESS. VSS. PERRLA. STRONG IN UPPER EXTREMITIES-MODERATE LOWER. WILL OCCASSIONALLY FOLLOW A COMMAND. AFIB- 2+ PULSES-GENERALIZED EDEMA. ROOM AIR-CPAP ON WHEN SLEEPING. DIABETIC DIET-ACHS ACCU CHECKS. BOWELS ARE ACITVEX4- LAST BM 03/21-SUPP. GIVEN. PAULSON CATH. HEAVY 2A-FULL LIFT. MULTIPLE SURGICAL INCISIONS-OPEN TO AIR. TRIPLE LUMEN CENTRAL LINE IN LEFT SUBCLAV WITH BICARB AT 125 ML/HR. 1:1- MITTEN RESTRAINTS. Follow up: MONITOR.
--- NOTE | 2017-03-26 13:53 | NUR ---
Diabetes center note: Continue to trend blood sugars, FBS this a.m. was 113, recommend to continue with current insulin regimen.
--- NOTE | 2017-03-26 13:58 | NUR ---
A - NUT F/U. A/O TO SELF. 1:1 SITTER. SORE MOUTH/THROAT - MUCOSITIS, MAGIC MOUTHWASH STARTED. 1+ EDEMA. 03/02 WT 326#, 03/26 WT 283# - DOWN 43# (13%). LABS: ACCUCHECK WNL-REAS, K+ 3.3, GLU 123, BUN/CR 46/1.5, ALB 2.1, PREALB 38 (D/T STEROIDS). MEDS: ZYPREXA, IVF, LEVEMIR, SSI, DECADRON, KEPPRA, SYNTHROID, BOWEL/NAUSEA. DIET: DIABETIC. INTAKE: REF-25%. GLUCERNA TID, ENSURE PUDDING @ L&D. NEEDS: 9623-4430 KCAL, 96-129 G PRO D - INADEQUATE NUTRIENT INTAKE R/T DECREASED APPETITE, DIFFICULTY CHEWING/SWALLOWING AEB INTAKE RECORD, MUCOSITIS. PT UNABLE TO MEET NEEDS ORALLY AT THIS TIME. I - GOAL FOR INCREASED NUTRIENT INTAKE. REC DOBHOFF PLACEMENT AND GLUCERNA 1.2 @ 80 ML/HR W/ 175 ML WATER Q6 HRS TO PROVIDE 2304 KCAL, 115 G PRO, 1546 ML FREE WATER. WILL CONTINUE CURRENT SUPPLEMENTS. M/E - WILL MONITOR INTAKE, WT F/U IN 3-5 DAYS.
--- NOTE | 2017-03-26 19:02 | NUR ---
Significant Event: Patient alert to self and appropriate with conversation at times. Pupils 3 BB. Does not follow commands consistently. Restless most of shift. Generalized edema. Afebrile. 2+ pulses. Afib. Heartrates 80-100 when resting. 140's with activities. Room air with sats in the mid 90s. LS clear and diminished. CPAP at HS if patient will tolerate per MD order. If it is aggravating him it can be removed. BS active X4. XL incontinent BM this shift. Cardoso in place. Patient states "it is burning". ABX started for UTI. ADA diet. Accuchecks ACHS with SSI. Coverage needed this evenign. Poor appetite. Multiple incision to head. Open to air. Edges approximated. Sergio to abdomen. Central line to L) chest. Triple lumen. Infusing with no complications. NS at 60ml/hr. Full lift or heavy 2 assist. 1:1 Mitten restraints off at this time. Family at bedside. Follow up:
[2017-03-27 05:38] LABS: ANION GAP 12.9 (10.0-19.0); BLOOD UREA NITROGEN 30 mg/dL (6-24); CALCIUM 7.7 mg/dL (8.5-10.5); CHLORIDE 109 mMol/L (96-110); CO2 25 mMol/L (22-32); HEMOGLOBIN 12.2 g/dL (12.0-17.0); MCH 29.5 pg (27.0-34.0); MCHC 33.9 gm/dL (32.0-36.5); MCV 87.2 fl (83.0-98.0); MPV 10.2 fl (9.4-12.4); PLATELET COUNT 335 K/uL (150-450); POTASSIUM 3.9 mMol/L (3.7-5.1); RBC 4.13 M/uL (4.00-6.00); RDW-CV 13.9 % (11.9-14.6); SODIUM 143 mMol/L (135-145); WBC 11.3 K/uL (4.0-11.0)
--- NOTE | 2017-03-27 05:38 | NUR ---
Significant Event: PATIENT IS ALERT AND ORIENTED TO SELF. DOES FOLLOW SOME COMMANDS. PERRLA. STRONG EQUAL. RESTLESS AND AGITATED THROUGHOUT SHIFT-REINITIATED RESTRAINTS AND GAVE AN ADDITIONAL DOES OF 10MG IM ZYPREXA. AFIB-TACHYCARDIC. GENERALIZED EDEMA. ROOM AIR. CPAP ON AT NOC-IF PATIENT BECOMES AGITATED OK TO REMOVE-MD ORDER. DIABETIC DIET-ACCU CHECKS ACHS-MILD S.S.-WILL TAKE PILLS BETTER IF CRUSHED-GIVE WITH APPLESAUCE OR PUDDING. 2A FULL LIFT. L) UPPER ARM SINGLE LUMEN PICC WITH NS AT 60 ML/HR. BOWELS ARE ACTIVE-LAST BM 03/26. Follow up: MONITOR 1:1.
[2017-03-27 05:39] LABS: ESTIMATED GFR (MDRD EQUATION) > 60; PHOSPHORUS 1.8 mg/dL (2.5-4.9)
[2017-03-27 06:27] LABS: ABSOLUTE NEUTROPHIL CT (ANC) 10.3 K/uL (1.4-9.0); BANDED NEUTROPHIL # 0.2 K/uL (0.0-0.1); BANDED NEUTROPHILS % 2 %; LYMPHOCYTE # 0.8 K/uL (0.8-4.0); LYMPHOCYTE % 7 %; MONOCYTE # 0.2 K/uL (0.0-1.0); SEGMENTED NEUTROPHIL # 10.1 K/uL (1.4-9.0); SEGMENTED NEUTROPHIL % 89 %
--- NOTE | 2017-03-27 14:20 | NUR ---
Significant Event: Patient is oriented to self. REsponds to sound. Mumbles. Follows few commands. Drowsy throughout the day- slept at times. Patient did not tolerate CPAP. 1+ generalized edema. Strong. pulses palpable. Incontinent at times. Cardoso removed r/t uti. PERRLA. Incisions to head are open to air. Puncture sites to abdomen are open to air. Pleasant and cooperative with cares. Restraints in place, 1:1 sitter. Family at bedside. Follow up:
--- NOTE | 2017-03-28 00:49 | NUR ---
PT CURRENTLY ON RA AND OFF HIS HOME CPAP, WAS ADVISED BY FAMILY NOT TO PLACE PT ON HOME CPAP.
[2017-03-28 04:36] LABS: ANION GAP 9.4 (10.0-19.0); BLOOD UREA NITROGEN 27 mg/dL (6-24); CALCIUM 7.5 mg/dL (8.5-10.5); CHLORIDE 110 mMol/L (96-110); CO2 28 mMol/L (22-32); CREATININE 0.9 mg/dL (0.6-1.3); ESTIMATED GFR (MDRD EQUATION) > 60; POTASSIUM 4.4 mMol/L (3.7-5.1); SODIUM 143 mMol/L (135-145)
[2017-03-28 04:45] LABS: ALBUMIN 1.9 gm/dL (3.5-5.0); PHOSPHORUS 1.4 mg/dL (2.5-4.9)
[2017-03-28 04:55] LABS: BASOPHIL % 0.1 %; EOSINOPHIL % 0.1 %; HEMATOCRIT 33.9 % (37.0-53.0); HEMOGLOBIN 11.4 g/dL (12.0-17.0); IMMATURE GRANULOCYTE # 0.1 K/uL (0.0-0.3); IMMATURE GRANULOCYTE % 0.8 %; LYMPHOCYTE # 0.7 K/uL (0.8-4.0); LYMPHOCYTE % 5.3 %; MCH 29.6 pg (27.0-34.0); MCHC 33.6 gm/dL (32.0-36.5); MCV 88.1 fl (83.0-98.0); MONOCYTE # 0.6 K/uL (0.0-1.0); MONOCYTE % 4.5 %; MPV 10.5 fl (9.4-12.4); NEUTROPHIL % 89.2 %; NRBC % 0 /100WBC (0-0.00); PLATELET COUNT 324 K/uL (150-450); RBC 3.85 M/uL (4.00-6.00); RDW-CV 14.1 % (11.9-14.6); WBC 13.4 K/uL (4.0-11.0)
--- NOTE | 2017-03-28 05:25 | NUR ---
Significant Event: Patient alert to self. Has been agitated for most of shift. Sleeps in intervals. Very restless. Cumming given x 1 tab once. When has a family member available to translate, does better at following commands. Lungs clear and dim on room air. Incontinent of bowel and bladder. Has a UTI, on ABX. Total lift per nursing. Incisions to head and abdomen open to air. Redness to bottom. Central line to left subclavian, triple lumen. D5 1/2 NS 20 KCL at 50 ml/hr. Took meds whole this shift. ACHS accuchecks. Follow up: Placement pending
--- NOTE | 2017-03-28 18:29 | NUR ---
Spoke with Dayami at [facility] in [place] yesterday and information faxed. Spoke with Vandana today and she says he looks like a potential candidate for LTAC. She says Ellen will come and assess patient on Friday and they will contact his insurance. Talked to Dr. Martell and he says LTAC is a good option. Will talk with family when able. Will follow.
--- NOTE | 2017-03-28 19:38 | NUR ---
Significant Event:Arouses with verbal and tactile stimulation, states name and , converses with spouse/sisters. Mumbles. Follows commands at times. Pt able to dangle and stand at bedside with PT staff, otherwise pt tx and repositioned with mechanical lift. Takes meds on spoon with pudding. Ate bites for breakfast and most of evening meal. Incisions to head are open to air, Punctures sites to abdomen are open to air. Incontinent bladder/bowel. Wrists restraints and 1:1 supervision. L TLSC intact, with Kphos started, continues with D51/s NS c 20KCL. Kphos level to be drawn when infusion complete. Other labs for a.m. draw. Jack RANDOLPH'd, started on Levaquin. Follow up:Possible tx to LTACH pending.
[2017-03-29 02:53] LABS: BLOOD UREA NITROGEN 26 mg/dL (6-24); CALCIUM 7.7 mg/dL (8.5-10.5); CHLORIDE 106 mMol/L (96-110); CO2 29 mMol/L (22-32); CREATININE 0.8 mg/dL (0.6-1.3); ESTIMATED GFR (MDRD EQUATION) > 60; MAGNESIUM 1.8 mg/dL (1.8-2.6); PHOSPHORUS 2.2 mg/dL (2.5-4.9); SODIUM 142 mMol/L (135-145)
--- NOTE | 2017-03-29 05:57 | NUR ---
Significant Event: Oriented to person/place upon first two assessments. Oriented to person on last assessment. Follows commands with assistance from family. Unable to acquire numbness/tingling sensation. Takes medications whole in applesauce. Remains in restraints and 1:1. Continous IV fluids through L)Subclavian. ACHS accuchecks. Incontinent of bowel and bladder. RAYMON currently in the room to assist with italian translation. Incisions to head and abdomen open to air. Follow up: Need hematest and C.diff sample
[2017-03-30 04:06] LABS: ANION GAP 11.9 (10.0-19.0); BASOPHIL % 0.1 %; BLOOD UREA NITROGEN 20 mg/dL (6-24); CALCIUM 7.7 mg/dL (8.5-10.5); CHLORIDE 104 mMol/L (96-110); CO2 31 mMol/L (22-32); CREATININE 0.7 mg/dL (0.6-1.3); EOSINOPHIL # 0.1 K/uL (0.0-0.5); EOSINOPHIL % 0.8 %; ESTIMATED GFR (MDRD EQUATION) > 60; HEMOGLOBIN 10.1 g/dL (12.0-17.0); IMMATURE GRANULOCYTE # 0.1 K/uL (0.0-0.3); IMMATURE GRANULOCYTE % 0.9 %; LYMPHOCYTE # 1.6 K/uL (0.8-4.0); LYMPHOCYTE % 12.2 %; MAGNESIUM 1.7 mg/dL (1.8-2.6); MCH 29.6 pg (27.0-34.0); MCHC 33.7 gm/dL (32.0-36.5); MONOCYTE # 0.7 K/uL (0.0-1.0); MPV 10.5 fl (9.4-12.4); NEUTROPHIL # (ANC) 10.6 K/uL (1.4-9.0); NRBC % 0 /100WBC (0-0.00); PHOSPHORUS 2.2 mg/dL (2.5-4.9); PLATELET COUNT 312 K/uL (150-450); POTASSIUM 3.9 mMol/L (3.7-5.1); RBC 3.41 M/uL (4.00-6.00); RDW-CV 13.7 % (11.9-14.6); SODIUM 143 mMol/L (135-145); WBC 13.1 K/uL (4.0-11.0)
--- NOTE | 2017-03-30 04:41 | NUR ---
Significant Event: Patient alert, answers questions appropriately at times. Moves extremities to command and spontaneously. Mitten restraints removed at 2114 and patient rested most of night. No attempts of pulling at lines. Pleasant and cooperativ with cares. continues as 1:1 with cares. Follow up:continue
--- NOTE | 2017-03-30 15:08 | NUR ---
A - NUTRITION F/U. PT IS A 1:1 IN RESTRAINTS. LABS: GLU 60, BUN/FISH FARMER 20/0.7, ALB 2.0, WBC 13.0. 1+ EDEMA T/O. DIET: DIABETIC W/ GLUCERNA TID AND ENSURE PUDDING L/D. INTAKE USUALLY SIPS AND BITES. D - AT RISK W/ INADEQUATE ORAL INTAKE R/T DECREASED APPETITE AEB INTAKE RECORD. I - GOAL: 25-50% INTAKE BY DISMISSAL. M/E - 1) PT NOT A GOOD CANDIDATE FOR DOBHOFF AND UNSURE IF PT WOULD REQUIRE PEG FOR LONG-TERM FEEDING. PLEASE CONSULT IF TPN WOULD BE CONSIDERED. WILL F/U IN 2-4 DAYS.
--- NOTE | 2017-03-30 15:58 | NUR ---
Significant Event: ALERT, GRENADIAN SPEAKING ONLY, FAMILY AND NURSING REORIENTED FREQUENTLY. MOVES ALL EXTREMITIES TO COMMAND AND SPONTANEOUSLY. VSS, AFEBRILE, ROOM AIR, HR 80-90'S AT REST. PT SLEPT MOST OF DAY WITH INTERMITTENT AGITATION. DANGLED AT BEDSIDE FOR MEALS. 2-3 ASSIST TO COMMODE, NO BM. APAP GIVEN FOR PAIN. GAVE IV MAG & CALCIUM, PO POTASSIUM. Follow up: PSYCH CONSULT FRIDAY RELATED TO DELIRIUM
[2017-03-30 18:00] LABS: ANION GAP 10.7 (10.0-19.0); BLOOD UREA NITROGEN 13 mg/dL (6-24); CHLORIDE 111 mMol/L (96-110); CO2 26 mMol/L (22-32); CREATININE 0.6 mg/dL (0.6-1.3); ESTIMATED GFR (MDRD EQUATION) > 60; MAGNESIUM 1.8 mg/dL (1.8-2.6); POTASSIUM 3.7 mMol/L (3.7-5.1); SODIUM 144 mMol/L (135-145)
[2017-03-30 18:02] LABS: ALBUMIN 1.6 gm/dL (3.5-5.0); CALCIUM 6.3 mg/dL (8.5-10.5)
--- NOTE | 2017-03-31 04:45 | NUR ---
Significant Event: Patient is alert and oriented to person and place. Disoriented to time. Forgetful. Patient is South Korean speaking only, family at the bedside to help translate. Denies any numbness or tingling. Equal strength throughout. PERRLA. VSS on room air. To wear CPAP at night, patient refused to wear it. 2-3 assist. Full lift. Incontinent of urine at times. Denies any pain. Left subclavian triple lumen IV with D5 1/2 NS with 20 meq of KCL running at 50 ml/hr. In 1:1 sitter due to pulling at things/trying to get out of bed. ACHS accuchecks. Takes pills whole. Patient becomes agitated at times. and son at the bedside. Follow up: EKG this am.
[2017-03-31 05:10] LABS: ALK PHOS 75 IU/L (33-138); ALT 52 IU/L (12-78); ANION GAP 9.9 (10.0-19.0); AST 31 IU/L (10-40); BLOOD UREA NITROGEN 14 mg/dL (6-24); CALCIUM 7.5 mg/dL (8.5-10.5); CHLORIDE 106 mMol/L (96-110); CO2 31 mMol/L (22-32); CREATININE 0.7 mg/dL (0.6-1.3); ESTIMATED GFR (MDRD EQUATION) > 60; PHOSPHORUS 2.2 mg/dL (2.5-4.9); POTASSIUM 3.9 mMol/L (3.7-5.1); SODIUM 143 mMol/L (135-145)
[2017-03-31 05:13] LABS: CPK 40 IU/L (35-332)
[2017-03-31 05:14] LABS: ALBUMIN 1.9 gm/dL (3.5-5.0); TOTAL BILIRUBIN 0.3 mg/dL (0.0-1.5); TOTAL PROTEIN 4.7 g/dL (6.0-8.4)
[2017-03-31 05:18] LABS: BASOPHIL % 0.1 %; EOSINOPHIL # 0.1 K/uL (0.0-0.5); EOSINOPHIL % 0.5 %; HEMATOCRIT 28.9 % (37.0-53.0); HEMOGLOBIN 9.7 g/dL (12.0-17.0); IMMATURE GRANULOCYTE # 0.1 K/uL (0.0-0.3); LYMPHOCYTE # 1.2 K/uL (0.8-4.0); LYMPHOCYTE % 10.8 %; MCH 29.8 pg (27.0-34.0); MCHC 33.6 gm/dL (32.0-36.5); MCV 88.9 fl (83.0-98.0); MONOCYTE # 0.5 K/uL (0.0-1.0); MONOCYTE % 4.9 %; MPV 10.4 fl (9.4-12.4); NEUTROPHIL # (ANC) 9.1 K/uL (1.4-9.0); NEUTROPHIL % 82.7 %; NRBC % 0 /100WBC (0-0.00); PLATELET COUNT 303 K/uL (150-450); RBC 3.25 M/uL (4.00-6.00); RDW-CV 13.7 % (11.9-14.6)
--- NOTE | 2017-03-31 12:30 | NUR ---
Ellen from [facility] here in a.m. to assess patient and talk with family. She says at this time they are not able to accept another 1:1 patient, but they are working on preauth with his insurance. She hopes later in the week, pending insurance approval they may be able to accept him. Talked with Dr. Cisse. Will follow.
--- NOTE | 2017-03-31 18:59 | NUR ---
Significant Event: PT ALERT; WOLOF SPEAKING ONLY. NURSING STAFF AND FAMILY RE-ORIENTED FREQUENTLY. MOVES ALL EXTREMITIES TO COMMAND AND SPONTANEOUSLY. TRANSFERRED THIS MORNING WITH 2-ASSIST/GAIT BELT/WALKER. AMBULATED IN THE MERRILL X1 WITH THERAPY THIS AM AND DID VERY WELL. SAT IN THE CHAIR FOR SEVERAL HOURS AND WAS AWAKE/ALERT. VITAL SIGNS STABLE; ON ROOM AIR. ORDERED A FOLLOW-UP MRI TODAY AND ORDERED IV ATIVAN TO BE GIVEN X1 PRIOR TO MRI. IV ATIVAN WAS GIVEN AT 1148. THE MRI WAS NOT ABLE TO BE DONE DUE TO THE PT BEING TOO RESTLESS. SINCE THE PT HAS BEEN BACK FROM MRI, HE HAS BEEN RESTLESS/AGITATED. BILATERAL MITTEN RESTRAINTS INITIATED AT 1340 DUE TO PULLING AT CENTRAL LINE. PRN SEROQUEL GIVEN AT 1632; PT HAS BEEN LESS RESTLESS. TAKES MEDICATIONS WHOLE, ONE AT A TIME WITH WATER. AC/HS ACCUCHECKS WITH MODERATE SLIDING SCALE. L)SUBCLAVIAN CENTRAL LINE INTACT; IV FLUIDS INFUSING WITHOUT DIFFICULTY. POOR APPETITE; NEEDS PO ENCOURAGEMENT. MODERATE BM PER COMMODE THIS MORNING. NO COMPLAINTS OR S/S PAIN. POSITIVE HEMATEST THIS SHIFT. GI CONSULT DONE TODAY AND AN EGD IS ORDERED FOR TOMORROW. PT WILL BE NPO AT MIDNIGHT. ENDOSCOPY COORDINATED WITH ANESTHESIA AND MRI WILL BE DONE WHEN PT IS UNDER SEDATION. FAMILY HAS BEEN AT BEDSIDE ALL SHIFT. BLAINE WAS UTILIZED THIS SHIFT FOR TRANSLATING. REMAINS WITH 1:1 SITTER FOR SAFETY. Follow up: NPO AFTER MIDNIGHT; PRE-OP CHECKLIST; EGD/MRI TOMORROW
--- NOTE | 2017-04-01 04:53 | NUR ---
Significant Event:Patient alert to self. Perrl. Moves all extremities spontaneously. Very restless, combative at times. Follows some commands at times. In Afib. Lungs clear and dim on room air. Incontinent of bowel and bladder. Smears with every incontinent this shift. Has been NPO since midnight. Central line to left subclavian running D5 1/2 NS with 20 KCL at 50 ml/hr. Mitt restraints intact. Seroquel given x 1 this shift, relief noted. ACHS accuchecks. Was hypoglycemic this shift. 0500 accucheck was 81. Needs 1 more hematest. Follow up: MRI and EGD today.
[2017-04-01 05:07] LABS: ANION GAP 10.1 (10.0-19.0); BLOOD UREA NITROGEN 11 mg/dL (6-24); CALCIUM 7.5 mg/dL (8.5-10.5); CHLORIDE 103 mMol/L (96-110); CO2 30 mMol/L (22-32); CREATININE 0.7 mg/dL (0.6-1.3); ESTIMATED GFR (MDRD EQUATION) > 60; MAGNESIUM 1.9 mg/dL (1.8-2.6); PHOSPHORUS 2.5 mg/dL (2.5-4.9); POTASSIUM 4.1 mMol/L (3.7-5.1); SODIUM 139 mMol/L (135-145)
--- NOTE | 2017-04-01 11:25 | NUR ---
A - NUTRITION F/U. PT COMBATIVE/RESTLESS. GLU 70, BUN/INTERNAL CONTROL CONSULTANT 11/0.7, ALB 2.0. PT NPO FOR MRI AND EGD. MEAL INTAKE REMAINS POOR, 0-25%. OFFERED GLUCERNA TID AND ENSURE PUDDING BID, TAKES WELL. EST NEEDS: 3725-1717 KCALS, 96-129 GM PROTEIN. D - AT RISK W/ INADEQUATE ORAL INTAKE R/T DECREASED APPETITE AEB INTAKE RECORD. I - GOAL: TO MEET PT NEEDS VIA ALTERNATIVE ROUTE. M/E - 1) PT NOT AT GOOD CANDIDATE FOR DOBHOFF PLACEMENT D/T MENTAL STATUS. CONSIDER CHANGING IVF TO TPN AT 50 ML/HR = 1224 KCALS, 51 GM PROTEIN. WITH SUPPLEMENT INTAKE, THIS SHOULD MEET MINIMUM NUTRIENT REQUIREMENTS. 2) WILL F/U IN 2-4 DAYS.
--- NOTE | 2017-04-01 11:34 | NUR ---
PT NOT EATING MEALS. TAKES SUPPLEMENTS BUT THIS IS NOT ADEQUATE TO MAINTAIN NUTRITION STATUS. SINCE PT NOT A GOOD CANDIDATE FOR DOBHOFF D/T MENTAL STATUS, CONSIDER TPN AT 50 ML/HR. WILL SUPPLEMENT INTAKE, SHOULD MEET 100% OF NEEDS.
--- NOTE | 2017-04-01 17:10 | NUR ---
Call from Ellen at [facility] in [place] and they have approval from his insurance for transfer to LTAC on or when medically ready for transfer. Plan is to touchbase in the morning with his physicians and with Ellen. Will follow.
--- NOTE | 2017-04-01 19:29 | NUR ---
Significant Event: Alert and oriented to self only. Room air. SBP 148, 154, and 126. HR 90's and 100's. Patient has been agitated and irritable at times. EGD done today duodenal ulcer found. MRI did not get done today, will do tomorrow around 10-1030. Left subclavian, 3 ports, infusing D 5 1/2 NS 20 KCL infusing at 50 ml/hr. Hematests completed. Stool sample for HP antigen completed. Up with full lift/2 assist. Patients family at bedside. Son helps with translation as patient is afghan speaking only. ACHS accuchecks 84, 77 and 160. Follow up: NPO after midnight for MRI tomorrow at 10-1030
--- NOTE | 2017-04-02 04:44 | NUR ---
Patient sleeping on last assessment and neurochecks if awake
--- NOTE | 2017-04-02 05:02 | NUR ---
Significant Event: Oriented to self. Patient speaks lao and family assists at the bedside. Moves upper and lower extremities on command with assistance from family for directions. Has been NPO since midnight for MRI planned today. D5 1/2 NS with KCl running at 50ml/hr through left subclavian. Continues in A.fib rhythm. 1:1 sitter for safety. ACHS accuchecks with s/s insulin. Restraints remain off throughout shift. Frequent repositioning and incontinence. Patient denies pain. Takes medications in jello/pudding. Follow up:
[2017-04-02 05:06] LABS: ALBUMIN 2.1 gm/dL (3.5-5.0); ANION GAP 10.3 (10.0-19.0); BLOOD UREA NITROGEN 10 mg/dL (6-24); CALCIUM 7.7 mg/dL (8.5-10.5); CHLORIDE 106 mMol/L (96-110); CO2 30 mMol/L (22-32); CREATININE 0.7 mg/dL (0.6-1.3); ESTIMATED GFR (MDRD EQUATION) > 60; MAGNESIUM 2.1 mg/dL (1.8-2.6); PHOSPHORUS 2.4 mg/dL (2.5-4.9); POTASSIUM 4.3 mMol/L (3.7-5.1); SODIUM 142 mMol/L (135-145)
[2017-04-02 05:33] LABS: BASOPHIL % 0.1 %; HEMOGLOBIN 10.1 g/dL (12.0-17.0); IMMATURE GRANULOCYTE # 0.1 K/uL (0.0-0.3); IMMATURE GRANULOCYTE % 1.1 %; LYMPHOCYTE # 0.7 K/uL (0.8-4.0); LYMPHOCYTE % 8.1 %; MCH 29.8 pg (27.0-34.0); MCHC 33.7 gm/dL (32.0-36.5); MCV 88.5 fl (83.0-98.0); MONOCYTE # 0.4 K/uL (0.0-1.0); MONOCYTE % 3.9 %; MPV 10.3 fl (9.4-12.4); NEUTROPHIL # (ANC) 7.9 K/uL (1.4-9.0); NEUTROPHIL % 86.8 %; NRBC % 0 /100WBC (0-0.00); PLATELET COUNT 334 K/uL (150-450); RBC 3.39 M/uL (4.00-6.00); RDW-CV 14.1 % (11.9-14.6)
--- NOTE | 2017-04-02 17:26 | NUR ---
Several calls with Ellen at [facility] and they have approval for LTAC and she is checking on the bed and 1:1. Talked with Fay CHAHAL this a.m. Ellen called this afternoon and says they can accept patient tomorrow to LTAC. Talked to Dr. Cisse and she says he will be ready for transfer tomorrow and she has already talked to Dr. Martell. Dr. berlin rodriguez called to Dr. Cheikh Jones at [phone]. Dr. Cisse will call him tomorrow. Nurse to nurse report will be called tomorrow to [phone]. Orders will be faxed to [phone]. Dr. Cisse says to set up ambulance for 1100 tomorrow. Spoke with patient's and son here and they had another son and DIL on speaker phone as they are bilingual. Talked with them about transfer tomorrow and plan for ambulance transfer at 1100. Answered their questions. Will get them address and directions to [facility]. Called and spoke with Lucila Zamora and she will work on setting up ambulance transport for tomorrow at 1100. Anticipate transfer to LTAC at [facility] tomorrow at 1100 via ambulance. Will follow.
--- NOTE | 2017-04-02 19:24 | NUR ---
Significant Event: Patient is alert and oriented to self and time only. Room air. ACHS accuchecks 171, 128 and 209. Up with full lift to recliner. Order for no tele. Triple lumen subclavian central line. White lumen does not flush and activase has been ordered. Other 2 lumens flush well with good blood return. D5 1/2 NS kcl running at 50 ml/hr. Family at bedside. Sons speak romanian and interpret to patient. MRI under sedation done today. Follow up:
--- NOTE | 2017-04-03 05:27 | NUR ---
Significant Event: Oriented to self. Patient speaks bulgarian and family assists at the bedside. PERRLA 3.0. Unable to acquire sensation. D5 1/2 NS with KCl running at 50ml/hr through left subclavian. ACHS accuchecks with s/s insulin. No need for restraints this shift but 1:1 supervision remains. Follows some commands with assistance from family. Takes medications whole in jello. 2A full lift for transfers. Frequent repositioning and incontinence. MRI done yesterday. VSS. Follow up:
--- NOTE | 2017-04-03 08:46 | NUR ---
A - NUTRITION F/U. PT IS A 1:1. GLU 163, BUN/SOLUTION DEVELOPER 10/0.7, ALB 2.1. 1+ EDEMA T/O. DIET: DIABETIC W/ GLUCERNA TID AND ENSURE PUDDING BID. INTAKE BITES/SIPS TO 50%. D - AT RISK W/ INADEQUATE ORAL INTAKE R/T DECREASED APPETITE AEB INTAKE RECORD. I - GOAL: 50% OR BETTER INTAKE. M/E - PT NOT ABLE TO MEET NEEDS ORALLY AND DOBHOFF NOT A GOOD OPTION D/T MENTAL STATUS. CONSIDER TPN AT 50 ML/HR = 1224 KCALS, 51 GM PROTEIN. F/U IN 3-5 DAYS.
--- NOTE | 2017-04-03 10:00 | NUR ---
Notified transfer has been placed on hold by physician. Talked with Dr. Cisse and she says after talking with ID some things need to be done here before transfer to LTAC. She says he will have repeat MRI on Friday and may be ready for transfer on Friday. Called and talked to Ellen at [facility] and updated her. Ellen says will have to reassess on Friday and see where they are at with beds. Talked with . Will follow.
--- NOTE | 2017-04-03 15:23 | NUR ---
CONFUSED. VSS. INC B&B. CAMEROONIAN ONLY FAMILY AT BEDSIDE. 1;1 DC'D LS CLEAR/DIM/ BS ACTIVE BM INC VDSX4. L QUAD LUMEN IVF @50 INT ATBX. ACHS. PLAN IS HOLDING TRANSFER UNTIL FRIDAY.
--- NOTE | 2017-04-04 05:53 | NUR ---
Significant Event: Patient alert/oriented x 3, mostly appropriate. Forgetful and impulsive at times. Has been fairly cooperative with cares this shift. Seems to be more aware and understanding more of situation. Moves all extremities spontaneously and to command. Lungs clear and dim on room air. Wore Cpap for a little bit this shift then took it off. Incontinent. Tries to use the urinal, but unsuccessful. Left subclavian intact, but can be D/C. PIV place this shift in left fa. Saline locked. Headache pain this shift, tylenol given. Follow up:
[2017-04-04 08:40] LABS: HEMATOCRIT 29.4 % (37.0-53.0); HEMOGLOBIN 9.9 g/dL (12.0-17.0)
[2017-04-04 08:50] LABS: ALBUMIN 2.2 gm/dL (3.5-5.0); ANION GAP 11.9 (10.0-19.0); BLOOD UREA NITROGEN 11 mg/dL (6-24); CALCIUM 7.6 mg/dL (8.5-10.5); CHLORIDE 109 mMol/L (96-110); CO2 28 mMol/L (22-32); ESTIMATED GFR (MDRD EQUATION) > 60; MAGNESIUM 1.9 mg/dL (1.8-2.6); POTASSIUM 3.9 mMol/L (3.7-5.1); SODIUM 145 mMol/L (135-145)
[2017-04-04 08:56] LABS: PHOSPHORUS 1.8 mg/dL (2.5-4.9)
--- NOTE | 2017-04-04 15:50 | NUR ---
Significant Event: PT A&O x3, forgetful, impulsive at times, frequent checks. IV patent to L)FA. PT tolerating ada diet. Incontinent, briefs on. Ambulates with therapy, lift for nursing staff. Telugu speaking, family speaks citizen of [place]. Incision sites, open to air, healing. Denies pain. Follow up:
--- NOTE | 2017-04-04 16:16 | NUR ---
Unable to assess patient until 1050 this shift r/t transferring another PT to ICU. 0700 assessment not done.
--- NOTE | 2017-04-05 05:29 | NUR ---
A&O but forgetful. Restless/impulsive at times. Set bed alarm off last night and was found kneeling at bedside. Incontinent. ACHS and carb count with meals. Stood at bedside with nursing (3 assist) and side stepped towards HOB last night. Egyptian speaking only. Family at bedside. IV left hand SL. Subclavian line DC'd last noc per order. Denies pain.
--- NOTE | 2017-04-05 17:23 | NUR ---
Significant Event: Patient alert to voice and name. Cambodian speaking only. Patient's son at bedside to interpret. Follows some commands. Impulsive. No tele. Afebrile. VSS. Incontinent of urine. Small BM this shift. Takes pills whole. Minimal intake. Accuchecks ACHS with SSI and carb count. All incisions open to air. PIV L) hand SLL. 2 assist gaitbelt and walker. 15 min checks. at bedside. Follow up: MRI friday
--- NOTE | 2017-04-06 03:01 | NUR ---
Significant Event: Alert to self and age, occasionally alert to location and town. PERRLA 3mm brisk. Obeys commands and moves spontaneously. Equal moderate strength throughout. Systolic 110-130's, HR 80's, 1-2+ edema to bilateral lower extremities. L.S. clear and diminished throughout on RA. B.S. active, one BM this shift. Urinates per 2PA pivot to bedside commode with walker or up 2PA walker to BR. PIV R) posterior forearm SL'd. Impulsive and restless throughout majority of shift; tried 15 minute checks until 0100 then tried numerous times getting out of bed and pulled IV, now on 1:1 observation. Accuchecks AC/HS, no coverage needed. Gave Tylenol for C/O R) shoulder pain. Follow up: Keep SBP <170, order for no telemetry. Plan for MRI Friday with/without contrast for f/u lesions. Alarms on at all times.
--- NOTE | 2017-04-06 15:31 | NUR ---
Significant Event: Alert to self. Bruneian speaking. Son at bedside to translate. PERRLA. Equal strength. Follows commands. No tele. VSS. Afebrile. Generalized edema. Room air with sats in the mid 90s. LS clear throughout. Takes pills whole. Incontinent at times but also uses commode and urinal. BS active. Large BM this shift. Accuchecks ACHS with SSI and carb count. Rash to legs. All surgical incisions open to air. R) FA PIV SLL. 2 assist with gaitbelt and walker. Family at bedside. Cooperative with cares. Follow up: MRI tomorrow
--- NOTE | 2017-04-07 03:14 | NUR ---
Significant Event: Alert to self and month. Occasionally alert to location and age. PERRLA 3mm brisk. Moves spontaneously and on command. Equal moderate hand associate professor of english strength. Equal moderate strength to bilateral lower extremities. 1-2+ generalized edema. Systolic 90-130's, HR 70-90's. L.S. clear and diminished in upper lobes, diminished in lower lobes on RA. B.S. active, last BM 04/06. Continent/incontinent of urine. Has been impulsive and restless throughout shift, slept minimal, made 1:1 observation at [facility], continues d/t getting out of bed unassisted. PIV R) forearm SL'd. Accuchecks AC/HS. Takes medications whole no difficulites. NPO since [facility] for possible sedation with MRI this AM. Follow up: MRI this AM with/without contrast f/u brain lesions. 15 minute checks throughout day depending upon patient's restlessness and agitation. Neuro checks. Family at bedside to help with translation.
[2017-04-07 04:21] LABS: BASOPHIL % 0.1 %; EOSINOPHIL # 0.1 K/uL (0.0-0.5); EOSINOPHIL % 0.7 %; HEMOGLOBIN 10.1 g/dL (12.0-17.0); IMMATURE GRANULOCYTE # 0.1 K/uL (0.0-0.3); IMMATURE GRANULOCYTE % 0.6 %; LYMPHOCYTE # 1.5 K/uL (0.8-4.0); LYMPHOCYTE % 17.1 %; MCH 29.8 pg (27.0-34.0); MCHC 32.6 gm/dL (32.0-36.5); MCV 91.4 fl (83.0-98.0); MONOCYTE # 0.4 K/uL (0.0-1.0); MONOCYTE % 4.2 %; MPV 9.8 fl (9.4-12.4); NEUTROPHIL # (ANC) 6.7 K/uL (1.4-9.0); NEUTROPHIL % 77.3 %; NRBC % 0.2 /100WBC (0-0.00); RBC 3.39 M/uL (4.00-6.00); RDW-CV 15.8 % (11.9-14.6); WBC 8.7 K/uL (4.0-11.0)
[2017-04-07 04:22] LABS: PLATELET COUNT 189 K/uL (150-450)
[2017-04-07 04:37] LABS: ANION GAP 11.6 (10.0-19.0); BLOOD UREA NITROGEN 14 mg/dL (6-24); CALCIUM 7.9 mg/dL (8.5-10.5); CHLORIDE 107 mMol/L (96-110); CO2 29 mMol/L (22-32); ESTIMATED GFR (MDRD EQUATION) > 60; POTASSIUM 3.6 mMol/L (3.7-5.1); SODIUM 144 mMol/L (135-145)
--- NOTE | 2017-04-07 13:33 | NUR ---
Significant Event: PT ALERT TO SELF/MONTH. CONFUSED AND NEEDS TO BE RE-ORIENTED BY FAMILY AT TIMES. MAURITANIAN SPEAKING. EQUAL, MODERATE STRENGTH X4. FOLLOWS COMMANDS. TRANSFERS WITH 2-ASSIST/GAIT BELT. VERY UNSTEADY ON FEET. HAS AMBULATED TO THE BATHROOM SEVERAL TIMES TODAY; XL BM THIS AM. INCONTINENT URINE; DOES VOID PER TOILET AT TIMES. NO TELEMETRY. GENERALIZED EDEMA. VITAL SIGNS STABLE; ON ROOM AIR. OLD SURGICAL INCISIONS TO HEAD ARE OPEN TO AIR. AC/HS ACCUCHECKS WITH MILD SLIDING SCALE, PLUS CARB COUNT. REFUSES TO WEAR BILATERAL CALF PUMPS. FOLLOW-UP MRI COMPLETED THIS MORNING; PT AND SON WENT TO MRI WITH PT, WHICH WAS VERY HELPFUL AND PT WAS COOPERATIVE FOR SCAN. TAKES MEDICATIONS WHOLE WITH WATER. IV TO R)FA SALINE LOCKED. TYLENOL GIVEN AT 0952 FOR COMPLAINTS OF R)SHOULDER PAIN, WITH RELIEF. AT 1242, THE PT FELL OUT OF THE CHAIR. HE WAS EATING LUNCH AND THE STEPPED OUT BRIEFLY. THIS RN WAS JUST IN THE ROOM ABOUT 5 MINUTES PRIOR TO THE FALL. THE CHAIR ALARM DID NOT ACTIVATE. SANDY SUTTON WAS OUTSIDE OF HIS ROOM CHARTING AND HEARD A "THUD" ON THE FLOOR. THE PT WAS FOUND ON THE FLOOR ON HIS ELBOWS. THE PT WAS RETURNED TO BED WITH THE FULL LIFT, VITAL SIGNS TAKEN. NO APPARENT INJURIES NOTED AT THIS TIME. FELA BYERS WAS GETTING READY TO ROUND ON THE PT AT THIS TIME AND SHE NOTIFIED . HAD JUST ARRIVED ON THE FLOOR TO DISCUSS THE MRI RESULTS FROM THIS AM. FAMILY WAS NOTIFIED. POST-FALL HUDDLE WAS COMPLETED AND A 1:1 SITTER WAS INITIATED WITH SENIOR STRATEGY ANALYST. PT IS CURRENTLY RESTING IN BED AT THIS TIME. NO NEURO CHANGES NOTED; PT IS STABLE AT THIS TIME. Follow up: 1:1 WITH SENIOR STRATEGY ANALYST, CONTINUE TO MONITOR.
--- NOTE | 2017-04-07 13:34 | NUR ---
A - DISORIENTED. K+ 3.6, GLU 110, BUN/MANAGER INVESTMENT BANKING 14/1.0. 1+ EDEMA T/O. DIET: DIABETIC, INTAKE USUALLY SIPS/BITES. TAKING GLUCERNA TID. PER PA, PT IMPROVING, POSSIBLE LTAC THIS WEEK. D - AT RISK W/ INADEQUATE ORAL INTAKE R/T DECREASED APPETITE AEB INTAKE RECORD. I - GOAL: 25% OR BETTER INTAKE BY DISMISSAL. M/E - WILL CONT TO FOLLOW INTAKE. F/U IN 2-4 DAYS.
--- NOTE | 2017-04-07 13:43 | NUR ---
PT DISLIKES MAGIC CUP; WILL CHANGE TO ICE CREAM BID PER MARITZA REQUEST. WILL F/U IN 2-4 DAYS.
--- NOTE | 2017-04-07 17:07 | NUR ---
Spoke with Ellen at [facility] several times today and update faxed to her. Spoke with Fay CHAHAL and Dr. Martell and patient ready for transfer to LTAC when bed available. Spoke with Ellen and updated her. Received call from Ellen and she anticipates they will have a bed tomorrow. She says they are contacting his insurance and will let me know in the morning if they can accept tomorrow or not. Spoke with patient's and son and udpated them. Await decision from Ellen at [facility] regarding when they can accept patient. Will follow.
[2017-04-08 04:38] LABS: ANION GAP 11.7 (10.0-19.0); BLOOD UREA NITROGEN 13 mg/dL (6-24); CALCIUM 7.7 mg/dL (8.5-10.5); CHLORIDE 107 mMol/L (96-110); CO2 28 mMol/L (22-32); CREATININE 0.9 mg/dL (0.6-1.3); ESTIMATED GFR (MDRD EQUATION) > 60; POTASSIUM 3.7 mMol/L (3.7-5.1); SODIUM 143 mMol/L (135-145)
--- NOTE | 2017-04-08 04:38 | NUR ---
Significant Event: Able to state first name. Occasionally alert to location, month and age. Follows commands and moves spontaneously. Equal moderate strength throughout. PERRLA 3mm brisk. Systolic 110-140's, HR 80's. L.S. clear and diminished throughout on RA. B.S. active on BM last noc. Up 2PA hands on with gait belt to BR. 1:1 observation throughout night for restlessness and agitation. PIV R) forearm SL'd. Takes medication whole no difficulties. Keep SPB <170. Need H. Pylori stool culture. Gave Tylenol last at 0150 for C/O DAWN; relief noted. Hi-Lo bed, alarms on at all times. Follow up: Monitor neuro status, plan for dismissal to LTAC in [place] today?
--- NOTE | 2017-04-08 09:28 | NUR ---
Pt arouses easily. Alert to self/family members, offers conversation appropriately, cooperative. States accurately, and "hospital" for place. Follows commands. Ambulates in hallway with 2 SBA/GB/Walker, and followed by a chair, for pt safety. Pt can be unsteady on feet, needs some encouragement for standing up straight, and ambulating. Follows commands, and moves spontaenously. Pt blood sugar 103 this a.m., ate only bites of meal and some juice. No SSI given since minimal carb intake. Tylenol 650mg po at 0900 for c/o headache. Pt unable to rate pain on scale 1-10, just indicates yes to pain questions. IVSL per FA. Last BM 04/08.
--- NOTE | 2017-04-08 10:15 | NUR ---
Call from Ellen this a.m. and they can accept patient today, as they have insurance approval and are able to do 1:1. Called and talked with Dr. Cisse and they can get orders done by 1030. Set up ambulance transfer for 1030 with [facility] ambulance. Talked to Dr. Martell and he says to have Dr. Cisse call Dr. to Dr. amos. Talked to Dr. Cisse and she will call Dr. Senior. Orders faxed. Nurse will call nurse to nurse report. Talked with patient's with Bonita from [place]. Answered her questions, gave her address and phone number for [facility] She says her son is driving her to [place] today. Patient to transfer to LTAC at [facility] in [place] at 1030 via [facility] ambulance.
== END 2017-04-08 10:45 | DRG 25 ==
LOC: GMED 18:52 → GNTU 20:32 → GICU 20:32 → GNTU 03-06 12:18 → GICU 03-07 17:46 → GNTU 03-15 02:16
PROVIDERS: Emergency Medicine; Family Medicine; Hospitalist; Internal Medicine; Internal Medicine Cardiovascular Disease; Internal Medicine Critical Care Medicine; Internal Medicine Nephrology; Nurse Practitioner; Nurse Practitioner Family; Physician Assistant; Student in an Organized Health Care Education/Training Program; ADMIT Neurological Surgery
DX: G91.0 Communicating hydrocephalus (principal); K26.4 Chronic or unspecified duodenal ulcer with hemorrhage; G93.40 Encephalopathy, unspecified; J96.12 Chronic respiratory failure with hypercapnia; N17.9 Acute kidney failure, unspecified; E87.2 Acidosis; I48.0 Paroxysmal atrial fibrillation; G93.9 Disorder of brain, unspecified; Z68.43 Body mass index [BMI] 50.0-59.9, adult; D62 Acute posthemorrhagic anemia; N39.0 Urinary tract infection, site not specified; E66.01 Morbid (severe) obesity due to excess calories; Z23 Encounter for immunization; D72.829 Elevated white blood cell count, unspecified; E03.9 Hypothyroidism, unspecified; E11.9 Type 2 diabetes mellitus without complications; I10 Essential (primary) hypertension; I25.10 Atherosclerotic heart disease of native coronary artery without angina pectoris; R19.5 Other fecal abnormalities; B96.89 Other specified bacterial agents as the cause of diseases classified elsewhere; R31.0 Gross hematuria; T88.8XXA Other specified complications of surgical and medical care, not elsewhere classified, initial encounter; Y73.1 Therapeutic (nonsurgical) and rehabilitative gastroenterology and urology devices associated with adverse incidents; Y92.239 Unspecified place in hospital as the place of occurrence of the external cause; Z79.01 Long term (current) use of anticoagulants; Z79.84 Long term (current) use of oral hypoglycemic drugs
CPT/HCPCS: A9577; C1751; C1763; C1892; C9113; J0360; J0515; J0610; J0690; J0696; J1100; J1120; J1630; J1940; J1953; J1956; J2060; J2250; J2270; J2405; J2997; J3230; J3360; J3370; J3475; J3480; J7030; J7040; J7050; Q9967

== ENCOUNTER → 2017-04-08 | Outpatient (CLI) | payer BC ==
[~2017-04-08] MED LIST: ALTACE10 MG PO; ASCORBIC ACID500 MG PO; CALCIUM CARBON600 MG PO; FISH OIL 1,2001 EAC1 PO; FLUOROMETHOLONE15 ML OPHTH; GLUCOPHAGE1000 MG PO; HYGROTON25 MG PO; LEVOTHROID (S150 MCG PO; LIPITOR20 M1 PO; MULTIPLE VITAM1 EACH PO; TOPROL XL100 MG PO; VITAMIN D1000 UNIT PO; XARELTO20 MG PO
== END | disposition disaster alternative care site (69) ==
LOC: GAMB 10:30
DX: R41.82 Altered mental status, unspecified (principal); S50.02XA Contusion of left elbow, initial encounter; R42 Dizziness and giddiness; I48.2 Chronic atrial fibrillation; E03.9 Hypothyroidism, unspecified; I10 Essential (primary) hypertension; Z79.84 Long term (current) use of oral hypoglycemic drugs; Z79.899 Other long term (current) drug therapy
CPT/HCPCS: A0425; A0428